=== PATIENT | male | born 1955 | race Caucasian/White ===

== ENCOUNTER → 2016-08-11 | Outpatient (CLI) | payer MEDICARE ==
--- NOTE | 2016-08-11 12:04 | FL ---
MODIFIED SWALLOW / DEGLUTITION STUDY DATE OF EXAM: 08/11/2016 11:32 AM CLINICAL HISTORY: 60-year-old male Dysphagia. Sensation of food getting caught in a pocket in his thr oat. TECHNIQUE: Deglutition study is performed utilizing thin liquid barium, honey and nectar thick liqui d barium, barium thick applesauce, and barium coated cracker. COMPARISON: None. FINDINGS: The oral and pharyngeal phases show satisfactory initiation and propagation with all modalities teste d. Normal mastication is seen with solid modalities tested. There is no evidence of penetration or aspiration with any modality tested. There is a single episode of vallecular residuals with solid con sistencies. This spontaneously cleared with repeat swallow. IMPRESSION: No evidence for penetration or aspiration. Single episode of vallecular residual with solid consisten cies. Please refer to speech therapist notes for further details if necessary.
== END | disposition home or self-care (01) ==
LOC: RADFLMAIN 11:00
PROVIDERS: ATTEND Otolaryngology
DX: R13.10 Dysphagia, unspecified (principal)
CPT/HCPCS: 74230

== ENCOUNTER → 2016-12-19 | Outpatient (CLI) | payer MEDICARE ==
--- NOTE | 2016-12-19 15:08 | XR ---
EXAMINATION TYPE: XR chest 2V DATE OF EXAM: 12/19/2016 3:04 PM COMPARISON: 09/08/2013 TECHNIQUE: PA and lateral views submitted. HISTORY: Physical exam FINDINGS: The lungs are clear and there is no pneumothorax, pleural effusion, or focal pneumonia. Large hiata l hernia noted. Mild hyperinflation. Hypertrophic change of the spine. IMPRESSION: 1. No acute process. Correlate for COPD. 2. Hiatal hernia
== END | disposition home or self-care (01) ==
LOC: RADXRMAIN 14:44
PROVIDERS: ATTEND Family Medicine
DX: Z00.01 Encounter for general adult medical examination with abnormal findings (principal); K44.9 Diaphragmatic hernia without obstruction or gangrene
CPT/HCPCS: 71020

== ENCOUNTER → 2017-06-05 | Outpatient (CLI) | payer MEDICARE ==
--- NOTE | 2017-06-05 15:53 | NM ---
EXAMINATION TYPE: NM hepatobiliary w EF DATE OF EXAM: 06/05/2017 COMPARISON: NONE HISTORY: Gastroesophageal reflux disease, abdominal pain TECHNIQUE: After the intravenous administration of 5.2 mCi Tc 99m Mebrofenin hepatobiliary scintigrap hy is performed. Immediate images post injection. FINDINGS: There is satisfactory initial accumulation of tracer by the liver. The gallbladder is visualized wit hin 4 minutes. The small bowel activity is noted within 8 minutes. At one hour 8 ounces of oral ens ure plus is given to mimic CCK and gallbladder ejection fraction is calculated at 96 %, possibly in t he hyperdynamic range. Therefore there is no scintigraphic evidence of cystic or common bile duct ob struction to suggest acute cholecystitis. IMPRESSION: Gallbladder ejection fraction of 96%, may be hyperdynamic
== END ==
LOC: RADNMMAIN 13:21
PROVIDERS: ATTEND Family Medicine
DX: K21.9 Gastro-esophageal reflux disease without esophagitis (principal)
CPT/HCPCS: 78226; A9537

== ENCOUNTER → 2017-06-08 | Outpatient (CLI) | payer MEDICARE ==
--- NOTE | 2017-06-08 12:31 | ECHOF ---
Referral Reason:R07.89 Atypical chest pain MEASUREMENTS -------- HEIGHT: 177.8 cm WEIGHT: 136.1 kg BP: 208/97 RVIDd: 2.6 cm (< 3.3) IVSd: 1.0 cm (0.6 - 1.1) LVIDd: 4.6 cm (3.9 - 5.3) LVPWd: 1.2 cm (0.6 - 1.1) IVSs: 1.9 cm LVIDs: 3.1 cm LVPWs: 1.4 cm LAESV Index (A-L): 11.80 ml/m Ao Diam: 3.6 cm (2.0 - 3.7) AV Cusp: 2.1 cm (1.5 - 2.6) MV E Richy: 0.98 m/s MV DecT: 336 ms MV A Richy: 1.29 m/s MV E/A Ratio: 0.75 RAP: 5.00 mmHg RVSP: 10.74 mmHg FINDINGS -------- Sinus rhythm. This was a technically adequate study. The left ventricular size is normal. There is borderline concentric left ventricular hypertrophy. Overall left ventricular systolic function is normal with, an EF between 55 - 60 %. The right ventricle is normal in size and function. Normal LA size by volume 22+/-6 ml/m2. The right atrium is normal in size. Aortic valve is trileaflet and is mildly thickened. There is no evidence of aortic regurgitation. There is no evidence of aortic stenosis. Mild mitral annular calcification present. There is trace mitral regurgitation. Trace tricuspid regurgitation present. Right ventricular systolic pressure is normal at < 35 mmHg. There is no evidence of pulmonary hypertension. The pulmonic valve was not well visualized. The aortic root size is normal. IVC Not well visulized. The pericardium is normal. Echo free space represents a pericardial fat pad. There is no pericard ial effusion. CONCLUSIONS -------- 1. Sinus rhythm. 2. This was a technically adequate study. 3. The left ventricular size is normal. 4. There is borderline concentric left ventricular hypertrophy. 5. Overall left ventricular systolic function is normal with, an EF between 55 - 60 %. 6. Normal LA size by volume 22+/-6 ml/m2. 7. Aortic valve is trileaflet and is mildly thickened. 8. Mild mitral annular calcification present. 9. There is trace mitral regurgitation. 10. Trace tricuspid regurgitation present. 11. Right ventricular systolic pressure is normal at < 35 mmHg. 12. There is no evidence of pulmonary hypertension. 13. The pulmonic valve was not well visualized. 14. The aortic root size is normal. 15. IVC Not well visulized. 16. There is no pericardial effusion. IT SOFTWARE ENGINEER: Pedro Graff RDCS
--- NOTE | 2017-06-08 15:22 | EST ---
EXERCISE STRESS AGE: 61 SEX: M HT: 72" WT: 300 PROTOCOL: Devonte STAGE: 2 DURATION OF EXERCISE: 3:30 HEART RATE REST: 94 BLOOD PRESSURE REST: 151/79 MAXIMUM HEART RATE ACHIEVED: 140 MAXIMUM BLOOD PRESSURE: 179/81 85% MPHR: 137 100% MPHR: 161 METS: 5.2 INDICATIONS: Chest pain. CLINICAL INFORMATION: Baseline EKG revealed normal sinus rhythm with a nondiagnostic inferior Q-wave in lead 3. Patient walked on a standard Devonte protocol for 3.5 minutes, achieved a maximum heart rate of 140 beats per minute which is 85% of predicted maximal. He developed fatigue and shortness of breath. He did not have any clear-cut angina. His exercise capacity is quite limited. There were no EKG changes to indicate ischemia and there was no arrhythmia. By EKG criteria, this is a negative stress test with limited exercise capacity and no significant arrhythmia. BERNARDINO / CHEYANNEN: [id number] /
== END | disposition home or self-care (01) ==
LOC: RADNMMAIN 10:47
PROVIDERS: ATTEND Family Medicine
DX: I35.8 Other nonrheumatic aortic valve disorders (principal); I05.9 Rheumatic mitral valve disease, unspecified
CPT/HCPCS: 93017; 93306

== ENCOUNTER 2018-08-26 17:47 | Inpatient (IN) | payer MEDICARE ==
[2018-08-26] MEDS ORDERED: ASPIRIN 81 MG PO STA (17:55)
[2018-08-26] MEDS ORDERED: HEPARIN SODIUM,PORCINE 5,000 UNIT/ML 1 ML VIAL IV STA (17:55)
[2018-08-26] MEDS ORDERED: SODIUM CHLORIDE 0.9% 1,000 ML IV STA (17:55)
--- NOTE | 2018-08-26 17:59 | ED ---
General Adult HPI - General Stated complaint: Chest pain Time Seen by Provider: 08/26/18 17:59 - Related Data Home Medications Medication Instructions Recorded Confirmed Omeprazole [PriLOSEC] 20 mg PO AC-BRKFST 12/06/13 08/26/18 oxyCODONE HCL/ACETAMINOPHEN 1 tab PO BID PRN 12/06/13 08/26/18 [Percocet 10-325 mg] Losartan/Hydrochlorothiazide 1 tab PO QAM PRN 01/22/14 08/26/18 [Losartan-Hctz 100-12.5 mg Tab] Gabapentin [Neurontin] 600 - 1,200 mg PO BID 06/29/16 08/26/18 Glimepiride [Amaryl] 2 mg PO BID 06/26/17 08/26/18 ALPRAZolam [Xanax] 1 mg PO HS PRN 08/26/18 08/26/18 oxyCODONE HCL 40 mg PO BID 08/26/18 08/26/18 tiZANidine [Zanaflex] 2 - 4 mg PO BID PRN 08/26/18 08/26/18 Allergies Allergy/AdvReac Type Severity Reaction Status Date / Time morphine AdvReac Severe Confusion Verified 08/26/18 18:03 Review of Systems ROS Statement: Those systems with pertinent positive or pertinent negative responses have been documented in the HPI. ROS Other: All systems not noted in ROS Statement are negative. Past Medical History Past Medical History: Diabetes Mellitus, GERD/Reflux Additional Past Medical History / Comment(s): back pain, cervical degenerative disc disease, neuropathy, seizure post back sugery, spondylosis, post laminectomy syndrome, bilateral numbness and tingling of arms and legs History of Any Multi-Drug Resistant Organisms: None Reported Past Surgical History: Back Surgery Additional Past Surgical History / Comment(s): back surgery X4 of lumbar spine, laminectomy and fusion, sleep apnea sx, right ulnar repair. Past Anesthesia/Blood Transfusion Reactions: Postoperative Nausea & Vomiting ( PONV) Smoking Status: Former smoker - Past Family History Mother Family Medical History: No Reported History Father Family Medical History: Cancer Additional Family Medical History / Comment(s): prostate. Medical Decision Making - Medical Decision Making Dictation was produced using [employer] dictation software. please excuse any grammatical, word or spelling errors. Chief Complaint: 62-year-old male presents with chief complaint of chest pain. History of Present Illness: Patient is a 62-year-old male with past medical history of chronic back pain. States he was cleaning the septic tank when he began experiencing crushing chest pressure. Patient called EMS and he was brought immediately to the emergency department. EMS obtained EKG showing inferior OH. He was given nitroglycerin from EMS. Patient states his symptoms are associated with diaphoresis. He does have radiation of symptoms to his left upper extremity. Patient denies any history of heart attack. Denies any antiplatelet medications. The ROS documented in this emergency department record has been reviewed and confirmed by me. Those systems with pertinent positive or negative responses have been documented in the HPI. All other systems are other negative and/or noncontributory. PHYSICAL EXAM: General Impression: Alert and oriented x3, acute distress secondary to pain, pallor, diaphoretic HEENT: Normocephalic atraumatic, extra-ocular movements intact, pupils equal and reactive to light bilaterally, mucous membranes moist. Cardiovascular: Heart regular rate and rhythm, S1&S2 audible, no murmurs, rubs or gallops Chest: Lungs clear to auscultation bilaterally, no rhonchi, no wheeze, no rales Abdomen: Bowel sounds present, abdomen soft, non-tender, non-distended, no organomegaly Musculoskeletal: Pulses present and equal in all extremities, no peripheral edema Motor: Power 5/5 bilaterally, no focal deficits noted Neurological: CN II-XII grossly intact, no focal motor or sensory deficits noted Skin: Intact with no visualized rashes Psych: Normal affect and mood ED course: 62-year-old male presents with clinical presentation associated with acute OH. Patient is then given nitroglycerin from prehospital providers. Vital signs upon arrival shows borderline low blood pressure. He did receive nitroglycerin. Given the setting of ear wall OH this is likely business representative of right-sided OH.. Code STEMI was paged. Discussed patient case with aeronautical products sales engineer. Patient had received aspirin from EMS. More IVs were obtained patient given intravenous fluids. EKG interpretation: Ventricular rate 60, sinus rhythm, TX interval 242, QRS 104 , QTC 479. No TX prolongation, no QTC prolongation, acute STEMI. There is ST elevations in the inferior leads with Q waves. There is reciprocal changes in high lateral leads. Disposition Clinical Impression: ST elevation myocardial infarction (STEMI) Disposition: ADMITTED IP TO THIS HOSP Condition: Critical Decision Time: 18:13
[2018-08-26] MEDS ORDERED: HEPARIN SOD,PORK IN 0.45% NACL 25,000 UNIT in 0.45% NACL 1 250ML.BAG IV SCH (18:00)
[2018-08-26] MEDS ORDERED: NALOXONE 0.4 MG/ML 1 ML VIAL IV PRN (18:13)
[2018-08-26 18:16] LABS: Basophils # (A) 0.1 k/uL (0-0.2); Basophils % (A) 0 %; Eosinophils # (A) 0.2 k/uL (0-0.7); Eosinophils % (A) 1 %; HCT 46.3 % (39.0-53.0); HGB 15.3 gm/dL (13.0-17.5); Lymphocytes # (A) 3.5 k/uL (1.0-4.8); Lymphocytes % (A) 21 %; MCH 29.8 pg (25.0-35.0); MCHC 33.1 g/dL (31.0-37.0); Mean Platelet Volume 6.8; Monocytes # (A) 1.1 k/uL (0-1.0); Monocytes % (A) 7 %; Neutrophils # (A) 11.7 k/uL (1.3-7.7); Neutrophils % (A) 69 %; Platelet Count 344 k/uL (150-450); RBC 5.15 m/uL (4.30-5.90); RDW 13.5 % (11.5-15.5); WBC 16.8 k/uL (3.8-10.6)
--- NOTE | 2018-08-26 18:16 | XR ---
EXAMINATION TYPE: XR chest 1V portable DATE OF EXAM: 08/26/2018 COMPARISON: 12/19/2016 HISTORY: Chest pain TECHNIQUE: Single frontal view of the chest is obtained. FINDINGS: Heart and mediastinum are normal. Lungs are clear. Diaphragm is normal. There is moderate size hiatal hernia. There is no pleural effusion. IMPRESSION: Hiatal hernia. No active cardiopulmonary disease. No change. No heart failure.
[2018-08-26] MEDS ORDERED: TICAGRELOR 90 MG TAB PO STA (18:20)
[2018-08-26 18:24] LABS: ALT 44 U/L (21-72); AST 33 U/L (17-59); Albumin 3.9 g/dL (3.5-5.0); Alkaline Phosphatase 128 U/L (38-126); Anion Gap 9 mmol/L; Blood Urea Nitrogen 26 mg/dL (9-20); Calcium 9.3 mg/dL (8.4-10.2); Carbon Dioxide 22 mmol/L (22-30); Chloride 103 mmol/L (98-107); Glucose 178 mg/dL (74-99); INR 1.1 (<1.2); Partial Thromboplastin Time 22.8 sec (22.0-30.0); Potassium 4.6 mmol/L (3.5-5.1); Prothrombin Time 11.2 sec (9.0-12.0); Sodium 134 mmol/L (137-145); Total Bilirubin 0.8 mg/dL (0.2-1.3); Total Protein 7.5 g/dL (6.3-8.2)
[2018-08-26 18:28] LABS: Creatine Kinase 364 U/L (55-170)
[2018-08-26] MEDS ORDERED: IV FLUID CONTINUATION 400 ML IV ONE (18:40)
[2018-08-26 18:41] LABS: Creatine Kinase MB 2.3 ng/mL (0.0-2.4); Troponin I <0.012 ng/mL (0.000-0.034)
--- NOTE | 2018-08-26 18:44 | CONS ---
CONSULTATION Mr. Short is a 62-year-old gentleman who came to the emergency room with a complaint of chest discomfort. This patient was trying to dig down and remove a septic tank, working outside in the cold freezing weather, and subsequently he started developing chest discomfort. The pain was in the substernal area associated with some nausea. EKG was suggestive of acute inferior wall myocardial infarction. Patient received nitroglycerin by EMS and subsequently developed hypotension, responded to fluids. The patient has a history of diabetes. There is no history of hypertension. He does not take any medications for cholesterol. He has a past history of smoking, but he has not been smoking for several years. He is physically and functionally independent. PAST MEDICAL HISTORY: 1. History of some surgery in the left leg. 2. History of hiatal hernia. No history of any recent GI bleeding or bleeding. No history of a stroke. REVIEW OF SYSTEMS: Otherwise unremarkable. PHYSICAL EXAMINATION: Physical examination reveals a 62-year-old obesely built gentleman who at present is having mild discomfort. Blood pressure is 102/60 mmHg. Head/ENT examination is negative. Neck is supple. There is no increase in jugular venous pressure. Both the carotid pulses are felt. There is no bruit. Chest is symmetrical. HEART: The PMI is not felt. First and second heart sounds are heard. Lungs are clinically clear to auscultation and percussion. Abdomen is negative. EXTREMITIES: Peripheral pulsations are 2+. EKG is suggestive of acute inferior wall myocardial infarction. FINAL IMPRESSION: 1. Acute inferior wall myocardial infarction. 2. History of diabetes. Lab tests are not available at present. RECOMMENDATIONS: Will proceed with immediate cardiac catheterization and primary angioplasty. The procedure and risks were fully discussed with the patient and the family members. MMODL / IJN: [id number] /
[2018-08-26] MEDS ORDERED: fentaNYL (PF) 50 MCG/ML 2 ML AMP ONE (18:45)
[2018-08-26] MEDS ORDERED: LIDOCAINE 1% INJ 10MG/ML (20 ML MDV) SQ ONE ×2 (18:46→18:48)
[2018-08-26] MEDS ORDERED: fentaNYL (PF) 50 MCG/ML 2 ML AMP IV ONE (18:49)
[2018-08-26] MEDS ORDERED: MIDAZOLAM 2 MG/2 ML VIAL IV ONE (18:49)
[2018-08-26] MEDS ORDERED: SODIUM CHLORIDE 0.9% 1,000 ML IV ONE (19:00)
[2018-08-26] MEDS ORDERED: BIVALIRUDIN BOLUS 250 MG/50 ML IV ONE (19:07)
[2018-08-26] MEDS ORDERED: BIVALIRUDIN 250 MG in SODIUM CHLORIDE 0.9% 40 ML IV ONE (19:09)
[2018-08-26] MEDS ORDERED: ONDANSETRON 4 MG/2 ML VIAL ONE (19:16)
[2018-08-26] MEDS: ONDANSETRON 4 MG/2 ML VIAL IVP ONE ×2 (19:21→19:44)
[2018-08-26] MEDS ORDERED: niCARdipine 25 MG/10 ML VIAL ONE (19:24)
[2018-08-26] MEDS ORDERED: niCARdipine Syringe (1,000 mcg/10 mL) INTRACORON ONE (19:26)
[2018-08-26] MEDS ORDERED: DOPamine DRIP 800 MG in DEXTROSE/WATER 1 500ML.BAG IV ONE (19:30)
[2018-08-26] MEDS ORDERED: NOREPINEPHRINE 16 MG in SODIUM CHLORIDE 0.9% 250 ML IV ONE (19:35)
[2018-08-26] MEDS ORDERED: IOPAMIDOL-370 125ML BTL INJ ONE (19:58)
[2018-08-26] MEDS ORDERED: IOPAMIDOL-370 100ML BTL INJ ONE (20:00)
[2018-08-26] MEDS ORDERED: NITROGLYCERIN SL TABS 0.4 MG TAB SUBLINGUAL PRN (20:13)
[2018-08-26] MEDS ORDERED: RX INFO: IV CONTRAST WAS GIVEN 1 EACH MISC MISCELLANE PRN (20:13)
[2018-08-26] MEDS ORDERED: MAG HYDROX/AL HYDROX/SIMETH 30 ML CUP PO PRN (20:13)
[2018-08-26] MEDS ORDERED: ATROPINE SULFATE 0.1 MG/ML 10ML SYRINGE IV PRN (20:13)
[2018-08-26] MEDS ORDERED: NOREPINEPHRINE 4 MG in SODIUM CHLORIDE 0.9% 250 ML IV SCH (20:30)
[2018-08-26] MEDS ORDERED: DOPamine DRIP 800 MG in DEXTROSE/WATER 1 500ML.BAG IV SCH (20:30)
--- NOTE | 2018-08-26 20:37 | CC ---
CARDIAC CATHETERIZATION REPORT Mr. Short is a 62-year-old gentleman who came to the emergency room with acute inferior wall myocardial infarction. Patient has a history of diabetes. In view of that, the patient was recommended to have a cardiac catheterization for primary angioplasty. PROCEDURE: The right groin was prepped and draped in the usual manner and the skin was infiltrated with 2% Xylocaine. The right femoral artery was entered using Seldinger technique. A #6- Vietnamese sheath was placed in. Selective coronary angiography was then performed in multiple projections. The patient tolerated the procedure well. The Shannan catheter was used to engage the right coronary artery. Left main coronary artery is normal. LAD is a good-caliber blood vessel. Mid LAD has a mild irregularity with about 30% stenosis. Circumflex coronary artery also has a mild irregularity. It gives rise to a good-sized obtuse marginal branch. Circumflex coronary artery and its branches are otherwise normal. Right coronary artery is a good-caliber blood vessel and is totally occluded in its mid portion. 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 There is a mild irregularity in the LAD and the circumflex coronary artery. Films were reviewed with Dr. Luis Chaparro and we will proceed with a stent to the RCA. MMODL / IJN: [id number] /
[2018-08-26 20:50] LABS: Glucose,Whole Blood 145 mg/dL (75-99)
--- NOTE | 2018-08-26 20:50 | PTCA ---
PERCUTANEOUSTRANS CORORONARY ANGIOGRAPHY DATE OF SERVICE: 08/26/2018 PROCEDURE: Percutaneous transluminal coronary angioplasty and stenting of a totally occluded right coronary artery performed in the setting of an acute inferior ST-elevation myocardial infarction with re-perfusion achieved in 83 minutes. PERFORMED BY: Dr. Nithya Chaparro. Moderate conscious sedation time was 36 minutes. Patient was administered Versed, and his oxygen saturation, hemodynamics and EKG were monitored closely. CLINICAL INFORMATION: Mr. Marvin Short is a 62-year-old gentleman with a history of type 2 diabetes and hypertension who quit smoking several years ago, came into the hospital with a clinical presentation of acute inferior VA and was evaluated by Dr. Juan Carlos Zapata, who performed a cardiac cath which revealed a total occlusion of the RCA, which was a dominant vessel, in its mid portion. He had non-critical disease in the left system. The LAD had a moderate disease in the mid portion. He had pretty much a right-dominant system with, however, a large circumflex as well. There were no critical lesions in the left system. He was advised intervention of the RCA that was performed expeditiously. RCA had somewhat of a posterior takeoff. PROCEDURE NOTE: The existing 6-Greenlandic introducer in the right femoral artery was used to perform the procedure. I used a Shannan 6-Greenlandic guide catheter to cannulate the RCA. A run-through wire was used to cross the lesion. A 2.5 caliber 12 mm Trek balloon was used to dilate the lesion. There was partial improvement in flow. However, there was a substantial amount of thrombus burden. Multiple inflations were then given with a 3.0 caliber 15 mm balloon, and eventually I used a 3.25 caliber 23 mm Xience stent and deployed this stent with the distal end of the stent located right at the bifurcation. Excellent angiographic result was achieved. I also gave 100 mcg of nicardipine. The patient had an excellent DENIA-3 flow with resolution of chest pain, but he had severe nausea and diaphoresis and became hypotensive, requiring IV fluids, Levophed and dopamine. He was stabilized very well, with resolution of chest pain and near-normalization of EKG and he was on 3 mcg of Levophed and dopamine. He was going to go to the ICU as soon as a bed was available. The distal PLV branch was subtotally occluded. It was a small branch and this caused some transient bradycardia. However, the patient was hemodynamically stable at the conclusion of the procedure with a DENIA-3 flow and near- normalization of EKG. There was a lot of thrombus burden. He received Angiomax bolus and infusion. He also received 180 mg of Brilinta. The sheath was sutured and he was sent to the ICU on 3 mcg of Levophed and dopamine. Patient had complete resolution of chest pain. Results were discussed with the patient and his . His sheath will be pulled tomorrow and he will be watched closely. MMODL / IJN: [id number] /
[2018-08-26] MEDS: SODIUM CHLORIDE 0.9% 1,000 ML IV SCH (21:03)
[2018-08-26] MEDS: ATORVASTATIN 80 MG TAB PO SCH (21:34)
[2018-08-26] MEDS: ONDANSETRON 4 MG/2 ML VIAL IVP PRN (22:02)
[2018-08-26] MEDS ORDERED: LOSARTAN 50 MG TAB PO PRN (23:03)
[2018-08-26] MEDS ORDERED: tiZANidine 4 MG TAB PO PRN (23:03)
[2018-08-26] MEDS ORDERED: HYDROCHLOROTHIAZIDE 12.5 MG CAP PO PRN (23:31)
[2018-08-27] MEDS ORDERED: PROCHLORPERAZINE 10 MG TAB PO ONE (01:15)
[2018-08-27 02:01] LABS: Glucose,Whole Blood 214 mg/dL (75-99)
[2018-08-27] MEDS: INSULIN ASPART 100 UNIT/ML 1 ML 10 ML VIAL SQ SCH ×5 (02:05→20:35)
[2018-08-27] MEDS: ONDANSETRON 4 MG/2 ML VIAL IVP PRN ×2 (04:02→09:30)
[2018-08-27 04:48] LABS: Basophils % (A) 0 %; Eosinophils # (A) 0.1 k/uL (0-0.7); Eosinophils % (A) 0 %; HCT 41.5 % (39.0-53.0); HGB 13.8 gm/dL (13.0-17.5); Lymphocytes # (A) 1.3 k/uL (1.0-4.8); Lymphocytes % (A) 10 %; MCH 30.1 pg (25.0-35.0); MCHC 33.2 g/dL (31.0-37.0); MCV 90.7 fL (80.0-100.0); Mean Platelet Volume 6.6; Monocytes # (A) 0.8 k/uL (0-1.0); Monocytes % (A) 7 %; Neutrophils # (A) 10.5 k/uL (1.3-7.7); Neutrophils % (A) 82 %; Platelet Count 307 k/uL (150-450); RBC 4.58 m/uL (4.30-5.90); RDW 13.5 % (11.5-15.5); WBC 12.8 k/uL (3.8-10.6)
[2018-08-27 05:00] LABS: Anion Gap 8 mmol/L; Blood Urea Nitrogen 23 mg/dL (9-20); Calcium 8.8 mg/dL (8.4-10.2); Carbon Dioxide 24 mmol/L (22-30); Chloride 103 mmol/L (98-107); Glucose 222 mg/dL (74-99); Potassium 4.4 mmol/L (3.5-5.1); Sodium 135 mmol/L (137-145)
[2018-08-27 06:41] LABS: Glucose,Whole Blood 186 mg/dL (75-99)
[2018-08-27] MEDS: PANTOPRAZOLE 40 MG TABLET PO SCH (06:54)
[2018-08-27] MEDS: SODIUM CHLORIDE 0.9% 1,000 ML IV SCH (06:54)
--- NOTE | 2018-08-27 07:22 | P.PN ---
Subjective Progress Note Date: 08/27/18 Principal diagnosis: Acute inferior ST patient in my This is a pleasant 62-year-old gentleman with a past medical history significant for diabetes, hypertension, and prior history of smoking, who presented to the emergency room with chest discomfort and was diagnosed with acute inferior ST patient myocardial infarction be he underwent an emergent heart catheterization and was found to have totally occluded RCA in the midportion. He underwent successful stenting of the RCA. On follow-up with him today, August 272018, the patient seems to be asymptomatic from a cardiac vascular standpoint overview. He is on dopamine which I am going to wean him off. The right groin have some stop on its. The sheath was pulled earlier today. He continues to be on dual antiplatelet therapy along with high intensity statin. We'll follow-up with the echocardiogram. The patient can be transferred out of the unit. Objective - Vital Signs Vital signs: Vital Signs Temp 97.6 F 08/27/18 04:00 Pulse 86 08/27/18 05:00 Resp 22 08/27/18 05:00 BP 111/56 08/27/18 05:00 Pulse Ox 94 L 08/27/18 05:00 Intake & Output 08/26/18 08/27/18 08/27/18 18:59 06:59 18:59 Intake Total 400 2116.580 Output Total 2435 Balance 400 -318.420 Weight 133.81 kg Intake: IV 400 210 Intake, IV Titration 1806.580 Amount DOPamine DRIP 800 mg In 313.840 Dextrose/Water 1 500ml. bag @ 3 MCG/KG/MIN 15.05 mls/hr IV .Q24H [facility]I Rx#: [id number] Norepinephrine 4 mg In 117.740 Sodium Chloride 0.9% 250 ml @ 3 MCG/MIN 11.25 mls/ hr IV .[id number] [facility]I Rx#: [id number] Sodium Chloride 0.9% 1, 1375 000 ml @ 125 mls/hr IV . Q8H [facility]I Rx#:[id number] Oral 100 Output: Urine 2435 Other: Voiding Method Indwelling Catheter ABP, PAP, CO, CI - Last Documented Arterial Blood Pressure 105/52 - Constitutional General appearance: Present: no acute distress - Respiratory Respiratory: bilateral: CTA - Cardiovascular Rhythm: regular Heart sounds: normal: S1, S2 - Labs CBC & Chem 7: 08/27/18 04:35 08/27/18 04:35 Labs: Abnormal Lab Results - Last 24 Hours (Table) 08/26/18 08/26/18 08/26/18 Range/Units 18:11 18:11 18:11 WBC 16.8 H (3.8-10.6) k/uL Neutrophils # 11.7 H (1.3-7.7) k/uL Monocytes # 1.1 H (0-1.0) k/uL Sodium 134 L (137-145) mmol/L BUN 26 H (9-20) mg/dL Glucose 178 H (74-99) mg/dL POC Glucose (mg/dL) (75-99) mg/dL Alkaline Phosphatase 128 H (38-126) U/L Total Creatine Kinase 364 H (55-170) U/L Troponin I (0.000-0.034) ng/mL 08/26/18 08/27/18 08/27/18 Range/Units 20:48 00:07 01:59 WBC (3.8-10.6) k/uL Neutrophils # (1.3-7.7) k/uL Monocytes # (0-1.0) k/uL Sodium (137-145) mmol/L BUN (9-20) mg/dL Glucose (74-99) mg/dL POC Glucose (mg/dL) 145 H 214 H (75-99) mg/dL Alkaline Phosphatase (38-126) U/L Total Creatine Kinase (55-170) U/L Troponin I 9.790 H* (0.000-0.034) ng/mL 08/27/18 08/27/18 08/27/18 Range/Units 04:35 04:35 04:35 WBC 12.8 H (3.8-10.6) k/uL Neutrophils # 10.5 H (1.3-7.7) k/uL Monocytes # (0-1.0) k/uL Sodium 135 L (137-145) mmol/L BUN 23 H (9-20) mg/dL Glucose 222 H (74-99) mg/dL POC Glucose (mg/dL) (75-99) mg/dL Alkaline Phosphatase (38-126) U/L Total Creatine Kinase (55-170) U/L Troponin I 21.800 H* (0.000-0.034) ng/mL 08/27/18 Range/Units 06:39 WBC (3.8-10.6) k/uL Neutrophils # (1.3-7.7) k/uL Monocytes # (0-1.0) k/uL Sodium (137-145) mmol/L BUN (9-20) mg/dL Glucose (74-99) mg/dL POC Glucose (mg/dL) 186 H (75-99) mg/dL Alkaline Phosphatase (38-126) U/L Total Creatine Kinase (55-170) U/L Troponin I (0.000-0.034) ng/mL Assessment and Plan Assessment: Assessment #[address] patient myocardial infarction and status post PCI of the RCA #2 diabetes type 2 #3 hypertension #4 history of smoking Plan #1 continue dual antiplatelet therapy along with high intensity statin #2 right wean the patient from dopamine #3 follow-up on the echocardiogram #4 the patient can be transferred out of the ICU
[2018-08-27] MEDS ORDERED: GABAPENTIN 300 MG CAP PO SCH (09:00)
[2018-08-27 09:28] LABS: Glucose,Whole Blood 131 mg/dL (75-99)
--- NOTE | 2018-08-27 10:25 | P.HPIM ---
History of Present Illness H&P Date: 08/27/18 Chief Complaint: Acute myocardial infarction, post PCI and stent placement of the RCA, destinye 62 year-old morbidly obese male one of Dr. Godoy patient with chronic history of diabetes obstructive sleep apnea hypertension and hyperlipidemia who has been doing well never had any cardiac history according to him. Patient started having problem with a septic tank asking for help with his family try to do repair on his own developed to have significant tightness pressure and shortness of breath on Sunday his symptoms become much worse on Sunday he developed to have significant midsternal chest pain radiating toward the left upper side of his chest wall associated with nausea and worsening dyspnea and shortness of breath. With the cold sweat and his current symptoms family decided to drive him to the emergency room a become very skier close to fire department end up pulling out and asked if I department for help patient was [facility] from by the fire department where was seen and evaluated CK with troponin came back elevated patient had an ST OR on EKG. Cardiology were called and patient was taken to the phlebotomist lab assistant with Dr. Zapata had a heart catheter showed total occlusion of the right coronary artery and small stenosis in the LAD and circumflex. Dr. WILBERT cochran ended up performing PCI with stent placement of the RCA successfully patient was admitted to the intensive care unit after procedure. Patient is resting comfortably at this point doing well Review of Systems CONSTITUTIONAL: Well-developed no acute respiratory distress. EYES: No icterus sclerae, no conjunctivitis. EARS, NOSE, MOUTH, THROAT, and FACE: No sore throat, lymphadenopathy, carotid bruits or deformity. RESPIRATORY: Positive shortness of breath and dyspnea CARDIOVASCULAR: Positive chest pain or angina and palpitation GASTROINTESTINAL: No Abd pain, Nausea or vomiting, no Diarrhea or constipation, No GI Bleed, no distention or masses. GENITOURINARY: Negative for Hematuria or UTI, no kidney stones. INTEGUMENT/BREAST: Negative for any muscular injury with mild osteoarthritis.. HEMATOLOGIC/LYMPHATIC: Negative for bleed or purpura. MUSCULOSKELTAL: Negative for Myalgia or arthralgia. NEURLOGICAL: No LOC, Sz or syncope, blurred vision dizziness or abnormality.. BEHAVIORAL/PSYCH: Negative. ENDOCRINE: Negative. Past Medical History Past Medical History: Diabetes Mellitus, GERD/Reflux, Myocardial Infarction (OR) Additional Past Medical History / Comment(s): back pain, cervical degenerative disc disease, neuropathy, seizure post back sugery, spondylosis, post laminectomy syndrome, bilateral numbness and tingling of arms and legs Last Myocardial Infarction Date:: 08/26/18 History of Any Multi-Drug Resistant Organisms: None Reported Past Surgical History: Back Surgery Additional Past Surgical History / Comment(s): back surgery X4 of lumbar spine, laminectomy and fusion, sleep apnea sx, right ulnar repair. Past Anesthesia/Blood Transfusion Reactions: Postoperative Nausea & Vomiting ( PONV) Past Psychological History: No Psychological Hx Reported Smoking Status: Former smoker Past Alcohol Use History: None Reported Additional Past Alcohol Use History / Comment(s): quit smoking ,smoked approc 17 yrs 2ppd Past Drug Use History: None Reported Additional Drug Use History / Comment(s): rarely drinks alcohol, social - Past Family History Mother Family Medical History: No Reported History Father Family Medical History: Cancer Additional Family Medical History / Comment(s): prostate. Medications and Allergies Home Medications Medication Instructions Recorded Confirmed Type Omeprazole [PriLOSEC] 20 mg PO AC-BRKFST 12/06/13 08/26/18 History oxyCODONE HCL/ACETAMINOPHEN 1 tab PO BID PRN 12/06/13 08/26/18 History [Percocet 10-325 mg] Losartan/Hydrochlorothiazide 1 tab PO QAM PRN 01/22/14 08/26/18 History [Losartan-Hctz 100-12.5 mg Tab] Gabapentin [Neurontin] 600 - 1,200 mg PO BID 06/29/16 08/26/18 History Glimepiride [Amaryl] 2 mg PO BID 06/26/17 08/26/18 History ALPRAZolam [Xanax] 1 mg PO HS PRN 08/26/18 08/26/18 History oxyCODONE HCL 40 mg PO BID 08/26/18 08/26/18 History tiZANidine [Zanaflex] 2 - 4 mg PO BID PRN 08/26/18 08/26/18 History Allergies Allergy/AdvReac Type Severity Reaction Status Date / Time morphine AdvReac Severe Confusion Verified 08/26/18 18:03 Physical Exam Vitals: Vital Signs Temp Pulse Pulse Resp BP BP BP 08/27/18 08:00 82 11 L 118/66 08/27/18 07:45 85 15 116/67 08/27/18 07:30 86 12 101/53 08/27/18 07:15 84 20 120/57 08/27/18 07:00 80 14 115/59 08/27/18 06:45 84 11 L 110/46 08/27/18 06:30 80 12 131/51 08/27/18 06:25 80 18 131/51 08/27/18 05:00 86 22 111/56 08/27/18 04:45 82 21 104/54 08/27/18 04:30 86 22 103/52 08/27/18 04:15 85 11 L 105/53 08/27/18 04:00 97.6 F 84 14 117/60 08/27/18 03:30 82 13 116/58 08/27/18 03:15 81 20 110/55 08/27/18 03:00 79 20 08/27/18 02:45 79 10 L 08/27/18 02:30 80 13 08/27/18 02:15 83 22 109/53 08/27/18 02:00 80 13 108/51 08/27/18 01:45 79 13 98/46 114/54 08/27/18 01:15 80 13 107/48 08/27/18 01:00 83 12 104/44 08/27/18 00:45 84 20 114/56 08/27/18 00:30 82 16 102/49 08/27/18 00:10 79 13 99/56 08/27/18 00:00 97.6 F 79 14 111/63 08/26/18 23:45 75 17 109/53 08/26/18 23:25 81 13 95/59 08/26/18 23:05 81 17 111/53 08/26/18 22:55 80 16 111/52 08/26/18 22:40 76 14 96/49 08/26/18 22:25 97.5 F L 75 11 L 101/47 08/26/18 22:10 74 12 100/46 08/26/18 21:55 71 13 107/50 08/26/18 21:40 71 12 119/43 08/26/18 21:25 63 12 113/52 08/26/18 21:20 75 21 118/58 08/26/18 21:15 74 12 118/53 08/26/18 21:10 66 12 95/74 08/26/18 21:05 71 12 112/62 08/26/18 21:00 66 11 L 100/61 08/26/18 20:55 97.0 F L 73 11 L 114/57 08/26/18 20:50 97.0 F L 78 17 109/58 08/26/18 18:20 81 14 103/74 08/26/18 18:13 81 16 97/64 08/26/18 18:00 81 20 101/74 Pulse Ox 08/27/18 08:00 97 08/27/18 07:45 97 08/27/18 07:30 98 08/27/18 07:15 96 08/27/18 07:00 96 08/27/18 06:45 96 08/27/18 06:30 96 08/27/18 06:25 96 08/27/18 05:00 94 L 08/27/18 04:45 95 08/27/18 04:30 94 L 08/27/18 04:15 95 08/27/18 04:00 96 08/27/18 03:30 95 08/27/18 03:15 95 08/27/18 03:00 96 08/27/18 02:45 96 08/27/18 02:30 97 08/27/18 02:15 95 08/27/18 02:00 95 08/27/18 01:45 95 08/27/18 01:15 97 08/27/18 01:00 97 08/27/18 00:45 96 08/27/18 00:30 95 08/27/18 00:10 96 08/27/18 00:00 97 08/26/18 23:45 99 08/26/18 23:25 96 08/26/18 23:05 96 08/26/18 22:55 95 08/26/18 22:40 92 L 08/26/18 22:25 92 L 08/26/18 22:10 92 L 08/26/18 21:55 95 08/26/18 21:40 94 L 08/26/18 21:25 95 08/26/18 21:20 96 08/26/18 21:15 93 L 08/26/18 21:10 95 08/26/18 21:05 93 L 08/26/18 21:00 96 08/26/18 20:55 94 L 08/26/18 20:50 94 L 08/26/18 18:20 97 08/26/18 18:13 96 08/26/18 18:00 93 L Intake and Output 08/26/18 08/27/18 08/27/18 22:59 06:59 14:59 Intake Total 1064.2 1452.380 128.507 Output Total 1100 1335 75 Balance -35.8 117.380 53.507 Intake: IV 610 Intake, IV Titration 454.2 1352.380 128.507 Amount DOPamine DRIP 800 mg In 45.3 268.540 3.507 Dextrose/Water 1 500ml. bag @ 3 MCG/KG/MIN 15.05 mls/hr IV .Q24H HARI Rx#: [id number] Norepinephrine 4 mg In 33.9 83.840 Sodium Chloride 0.9% 250 ml @ 3 MCG/MIN 11.25 mls/ hr IV .[id number] HARI Rx#: [id number] Sodium Chloride 0.9% 1, 375 1000 125 000 ml @ 125 mls/hr IV . Q8H [facility]I Rx#:[id number] Oral 100 Output: Urine 1100 1335 75 Other: Voiding Method Indwelling Catheter Weight 133.81 kg ABP, PAP, CO, CI - Last 8 Hours Arterial Blood Pressure 105/52 Arterial Blood Pressure 116/59 Arterial Blood Pressure 113/52 General Appearance: Alert, cooperative, no distress, appears stated age. Morbidly obese Neck HEENT: Supple, no lymphadenopathy, no thyroid enlargement, no carotid bruits. Lungs: Decreased breath sound bilaterally fine rhonchi Chest Wall: Chest wall normal expansion with deep inspiration no tenderness and no deformity was found on exam, no costochondral pain or discomfort. Heart: Regular rate and rhythm, S1, S2 normal, no murmur, rub or gallop. Back: Symmetric, no curvature, ROM normal, no CVA tenderness. Abdomen: Soft, non-tender, bowel sounds active all four quadrants, no masses, no organomegaly. Extremities: Extremities normal, atraumatic, no cyanosis or edema. Pressure in the right groin area from his heart catheter site the sheath of the catheter is out. Pulses: 2+ and symmetric. Skin: Skin color, texture, tugor normal, no rashes or lesions. Neurologic: Alert oriented x3 cranial nerves II through XII intact, no motor deficit, no abnormal balance or gait. Results CBC & Chem 7: 08/27/18 04:35 08/27/18 04:35 Labs: Abnormal Lab Results - Last 24 Hours (Table) 08/26/18 08/26/18 08/26/18 Range/Units 18:11 18:11 18:11 WBC 16.8 H (3.8-10.6) k/uL Neutrophils # 11.7 H (1.3-7.7) k/uL Monocytes # 1.1 H (0-1.0) k/uL Sodium 134 L (137-145) mmol/L BUN 26 H (9-20) mg/dL Glucose 178 H (74-99) mg/dL POC Glucose (mg/dL) (75-99) mg/dL Alkaline Phosphatase 128 H (38-126) U/L Total Creatine Kinase 364 H (55-170) U/L Troponin I (0.000-0.034) ng/mL 08/26/18 08/27/18 08/27/18 Range/Units 20:48 00:07 01:59 WBC (3.8-10.6) k/uL Neutrophils # (1.3-7.7) k/uL Monocytes # (0-1.0) k/uL Sodium (137-145) mmol/L BUN (9-20) mg/dL Glucose (74-99) mg/dL POC Glucose (mg/dL) 145 H 214 H (75-99) mg/dL Alkaline Phosphatase (38-126) U/L Total Creatine Kinase (55-170) U/L Troponin I 9.790 H* (0.000-0.034) ng/mL 08/27/18 08/27/18 08/27/18 Range/Units 04:35 04:35 04:35 WBC 12.8 H (3.8-10.6) k/uL Neutrophils # 10.5 H (1.3-7.7) k/uL Monocytes # (0-1.0) k/uL Sodium 135 L (137-145) mmol/L BUN 23 H (9-20) mg/dL Glucose 222 H (74-99) mg/dL POC Glucose (mg/dL) (75-99) mg/dL Alkaline Phosphatase (38-126) U/L Total Creatine Kinase (55-170) U/L Troponin I 21.800 H* (0.000-0.034) ng/mL 08/27/18 08/27/18 Range/Units 06:39 09:26 WBC (3.8-10.6) k/uL Neutrophils # (1.3-7.7) k/uL Monocytes # (0-1.0) k/uL Sodium (137-145) mmol/L BUN (9-20) mg/dL Glucose (74-99) mg/dL POC Glucose (mg/dL) 186 H 131 H (75-99) mg/dL Alkaline Phosphatase (38-126) U/L Total Creatine Kinase (55-170) U/L Troponin I (0.000-0.034) ng/mL Thrombosis Risk Factor Assmnt - DVT/VTE Prophylaxis DVT/VTE Prophylaxis: Pharmacologic Prophylaxis ordered, Mechanical Prophylaxis ordered - Choose All That Apply Any of the Below Risk Factors Present?: Yes Each Factor Represents 1 point: Acute OR, Age 41-60 years, Obesity (BMI >25), Swollen legs (current) Other Risk Factors: Yes Each Risk Factor Represents 2 Points: Patient confined to bed Other congenital or acquired thrombophilia - If yes, enter type in comment: No Thrombosis Risk Factor Assessment Total Risk Factor Score: 6 Thrombosis Risk Factor Assessment Level: High Risk Assessment and Plan Plan: 1 acute myocardial infarction [address] OR: Patient made it to the phlebotomist lab assistant had an angioplasty and stent placement with cardiology will continue secondary prevention with Nnamdi, beta jean, statin, antiplatelet agent and aspirin. 2 post PCI and stent placement: Stable and doing well. 3 type 2 diabetes: Patient has been on glyburide, continue oral hypoglycemic agent continue Accu-Chek with sliding scales coverage. 4 hypertension: Patient has been on losartan HCT continue medication and at smaller dose of beta jean. 5 hyperlipidemia: Patient was started on high dose of atorvastatin 80 mg daily. 6 chronic pain syndrome: Has been on oxycodone 40 mg twice a day along with Percocet 10 mg every 12 hours combined with gabapentin 1200 mg at bedtime and Zanaflex twice a day continue medication but lower the dose of oxycodone to 20 mg at this point is discharged from the hospital. 7 neuropathy with worsening symptoms: Patient will continue gabapentin for now. 8 severe GERD: Has been on omeprazole 20 mg a day continue medication. 9 History of obstructive sleep apnea: Post surgery patient is not using any CPAP at this point highly recommended to go back for testing and if needed to start using CPAP from now on. 10 DVT prophylaxis: Patient will have early mobilization and knee-high ELLY hose. CODE STATUS: Full code. Admit patient to inpatient status for more than 2 nights.
[2018-08-27] MEDS: TICAGRELOR 90 MG TAB PO SCH ×2 (10:40→20:53)
[2018-08-27] MEDS: ASPIRIN 81 MG PO SCH (10:40)
[2018-08-27] MEDS: GLIMEPIRIDE 2 MG TAB PO SCH ×2 (10:41→20:52)
[2018-08-27] MEDS: METOPROLOL TARTRATE 12.5 MG TAB PO SCH ×2 (10:44→20:53)
[2018-08-27 10:57] VITALS: BMI 42.3
[2018-08-27 11:50] LABS: Glucose,Whole Blood 114 mg/dL (75-99)
[2018-08-27 14:57] LABS: Hemoglobin A1C 7.4 % (4.0-6.0)
[2018-08-27 16:31] LABS: Glucose,Whole Blood 56 mg/dL (75-99)
[2018-08-27 16:52] LABS: Glucose,Whole Blood 105 mg/dL (75-99)
[2018-08-27 17:13] LABS: Glucose,Whole Blood 121 mg/dL (75-99)
--- NOTE | 2018-08-27 20:21 | ECHOF ---
Referral Reason:Acute IMI S/P RCA PCI MEASUREMENTS -------- HEIGHT: 157.5 cm WEIGHT: 133.8 kg BP: IVSd: 1.4 cm (0.6 - 1.1) LVIDd: 4.1 cm (3.9 - 5.3) LVPWd: 1.5 cm (0.6 - 1.1) IVSs: 1.6 cm LVIDs: 3.0 cm LVPWs: 1.6 cm Ao Diam: 3.2 cm (2.0 - 3.7) AV Cusp: 1.8 cm (1.5 - 2.6) EPSS: 1.5 cm MV E Richy: 0.50 m/s MV DecT: 251 ms MV A Richy: 0.79 m/s MV E/A Ratio: 0.63 MV EF SLOPE: 76.57 mm/s (70 - 150) MV EXCURSION: 23.95 mm (> 18.000) FINDINGS -------- Sinus rhythm. Morbid Obesity This was a techncally difficult study with suboptimal views, , Lumason utilized for enhancement of im ages. The left ventricular size is normal. There is moderate concentric left ventricular hypertrophy. O verall left ventricular systolic function is low-normal with, an EF between 50 - 55 %. The right ventricle is normal in size. The left atrial size is normal. The right atrial size is normal. 5.0mg OF Lumason UTLIZED: 2 OR MORE WALL SEGMENTS NOT VISUALIZED. The aortic valve was not well visualized. Mild mitral annular calcification present. Mild mitral regurgitation is present. Mild tricuspid regurgitation present. There is no evidence of pulmonary hypertension. Unable to e stimate RVSP due to inadequate TR jet spectral doppler profile. The pulmonic valve was not well visualized. The aortic root size is normal. Echo free space represents a pericardial fat pad. CONCLUSIONS -------- 1. Morbid Obesity 2. This was a techncally difficult study with suboptimal views, , Lumason utilized for enhancement of images. 3. The left ventricular size is normal. 4. There is moderate concentric left ventricular hypertrophy. 5. Overall left ventricular systolic function is low-normal with, an EF between 50 - 55 %. 6. The right ventricle is normal in size. 7. The left atrial size is normal. 8. The right atrial size is normal. 9. 5.0mg OF Lumason UTLIZED: 2 OR MORE WALL SEGMENTS NOT VISUALIZED. 10. The aortic valve was not well visualized. 11. Mild mitral annular calcification present. 12. Mild mitral regurgitation is present. 13. Mild tricuspid regurgitation present. 14. There is no evidence of pulmonary hypertension. 15. Unable to estimate RVSP due to inadequate TR jet spectral doppler profile. 16. The pulmonic valve was not well visualized. 17. The aortic root size is normal. 18. Echo free space represents a pericardial fat pad. SENIOR SHAREPOINT ARCHITECT: Rebekah Barrera RDCS
[2018-08-27 20:27] LABS: Glucose,Whole Blood 125 mg/dL (75-99)
[2018-08-27] MEDS: ATORVASTATIN 80 MG TAB PO SCH (20:53)
[2018-08-27] MEDS: GABAPENTIN 400 MG CAP PO SCH (20:53)
[2018-08-27] MEDS: AMITRIPTYLINE HCL 50 MG TAB PO SCH (22:37)
[2018-08-28] MEDS: ZOLPIDEM 5 MG TAB PO PRN ×2 (00:16→23:00)
[2018-08-28 02:52] LABS: Glucose,Whole Blood 146 mg/dL (75-99)
[2018-08-28 06:12] LABS: Basophils % (A) 0 %; Eosinophils # (A) 0.1 k/uL (0-0.7); Eosinophils % (A) 1 %; HCT 43.4 % (39.0-53.0); HGB 13.8 gm/dL (13.0-17.5); Lymphocytes # (A) 2.5 k/uL (1.0-4.8); Lymphocytes % (A) 22 %; MCH 29.3 pg (25.0-35.0); MCHC 31.9 g/dL (31.0-37.0); Mean Platelet Volume 6.5; Monocytes % (A) 9 %; Neutrophils # (A) 7.5 k/uL (1.3-7.7); Neutrophils % (A) 66 %; Platelet Count 293 k/uL (150-450); RBC 4.72 m/uL (4.30-5.90); RDW 13.6 % (11.5-15.5); WBC 11.4 k/uL (3.8-10.6)
[2018-08-28] MEDS: INSULIN ASPART 100 UNIT/ML 1 ML 10 ML VIAL SQ SCH ×5 (06:14→21:56)
[2018-08-28 06:21] LABS: Glucose,Whole Blood 84 mg/dL (75-99)
[2018-08-28 06:35] LABS: Calcium 8.9 mg/dL (8.4-10.2); Potassium 4.4 mmol/L (3.5-5.1)
[2018-08-28] MEDS: PANTOPRAZOLE 40 MG TABLET PO SCH (06:36)
--- NOTE | 2018-08-28 07:24 | P.PN ---
Subjective Progress Note Date: 08/28/18 Principal diagnosis: Acute inferior ST patient in my This is a pleasant 62-year-old gentleman with a past medical history significant for diabetes, hypertension, and prior history of smoking, who presented to the emergency room with chest discomfort and was diagnosed with acute inferior ST patient myocardial infarction be he underwent an emergent heart catheterization and was found to have totally occluded RCA in the midportion. He underwent successful stenting of the RCA. On follow-up with the patient today, 08/28/2018, the patient is asymptomatic from the cardiac standpoint. The right groin is soft and nontender and without any bruises. He continues to be on dual antiplatelet therapy along with metoprolol as well as losartan. The echocardiogram revealed normal LV function without any significant valvular abnormalities. I do recommend keeping the patient for additional 24 hours with possible discharge tomorrow if there is no events. Objective - Vital Signs Vital signs: Vital Signs Temp 97.9 F 08/28/18 03:22 Pulse 80 08/28/18 03:22 Resp 18 08/28/18 03:22 BP 114/63 08/28/18 03:22 Pulse Ox 93 L 08/28/18 03:22 Intake & Output 08/27/18 08/28/18 08/28/18 18:59 06:59 18:59 Intake Total 2228.507 640 Output Total 825 1400 Balance 1403.507 -760 Weight 133.81 kg 133.6 kg Intake: IV 1250 Sodium Chloride 0.9% 1, 1250 000 ml @ 125 mls/hr IV . Q8H [facility]I Rx#:[id number] Intake, IV Titration 128.507 Amount DOPamine DRIP 800 mg In 3.507 Dextrose/Water 1 500ml. bag @ 3 MCG/KG/MIN 15.05 mls/hr IV .Q24H [facility]I Rx#: [id number] Sodium Chloride 0.9% 1, 125 000 ml @ 125 mls/hr IV . Q8H HARI Rx#:[id number] Oral 850 640 Output: Urine 825 1400 Other: Voiding Method Indwelling Catheter Urinal ABP, PAP, CO, CI - Last Documented Arterial Blood Pressure 105/52 - Constitutional General appearance: Present: no acute distress - Respiratory Respiratory: bilateral: CTA - Cardiovascular Rhythm: regular Heart sounds: normal: S1, S2 - Labs CBC & Chem 7: 08/28/18 05:42 08/28/18 05:42 Labs: Abnormal Lab Results - Last 24 Hours (Table) 08/27/18 08/27/18 08/27/18 Range/Units 04:35 09:26 10:50 WBC (3.8-10.6) k/uL POC Glucose (mg/dL) 131 H (75-99) mg/dL Hemoglobin A1c 7.4 H (4.0-6.0) % Troponin I 26.900 H* (0.000-0.034) ng/mL 08/27/18 08/27/18 08/27/18 Range/Units 11:48 16:29 16:51 WBC (3.8-10.6) k/uL POC Glucose (mg/dL) 114 H 56 L 105 H (75-99) mg/dL Hemoglobin A1c (4.0-6.0) % Troponin I (0.000-0.034) ng/mL 08/27/18 08/27/18 08/27/18 Range/Units 17:12 17:20 20:26 WBC (3.8-10.6) k/uL POC Glucose (mg/dL) 121 H 125 H (75-99) mg/dL Hemoglobin A1c (4.0-6.0) % Troponin I 21.800 H* (0.000-0.034) ng/mL 08/28/18 08/28/18 Range/Units 02:49 05:42 WBC 11.4 H (3.8-10.6) k/uL POC Glucose (mg/dL) 146 H (75-99) mg/dL Hemoglobin A1c (4.0-6.0) % Troponin I (0.000-0.034) ng/mL Assessment and Plan Assessment: Assessment #[address] patient myocardial infarction and status post PCI of the RCA #2 diabetes type 2 #3 hypertension #4 history of smoking Plan #1 continue dual antiplatelet therapy along with high intensity statin #2 the echo revealed normal LV function without any wall motion abnormalities #3 monitor the patient for additional 24 hours #4 follow-up with the patient
[2018-08-28] MEDS: ASPIRIN 81 MG PO SCH (08:22)
[2018-08-28] MEDS: GLIMEPIRIDE 2 MG TAB PO SCH ×2 (08:22→20:53)
[2018-08-28] MEDS: METOPROLOL TARTRATE 12.5 MG TAB PO SCH ×2 (08:22→20:52)
[2018-08-28] MEDS: TICAGRELOR 90 MG TAB PO SCH ×2 (08:26→20:54)
[2018-08-28 11:57] LABS: Glucose,Whole Blood 94 mg/dL (75-99)
[2018-08-28] MEDS: oxyCODONE-APAP 10-325MG 1 EACH TAB PO PRN (14:17)
--- NOTE | 2018-08-28 14:26 | P.PN ---
Subjective Progress Note Date: 08/28/18 62 year-old morbidly obese male one of Dr. Godoy patient with chronic history of diabetes obstructive sleep apnea hypertension and hyperlipidemia who has been doing well never had any cardiac history according to him. Patient started having problem with a septic tank asking for help with his family try to do repair on his own developed to have significant tightness pressure and shortness of breath on Sunday his symptoms become much worse on Sunday he developed to have significant midsternal chest pain radiating toward the left upper side of his chest wall associated with nausea and worsening dyspnea and shortness of breath. With the cold sweat and his current symptoms family decided to drive him to the emergency room a become very skier close to fire department end up pulling out and asked if I department for help patient was escorted to [facility] from by the fire department where was seen and evaluated CK with troponin came back elevated patient had an ST IN on EKG. Cardiology were called and patient was taken to the ballistics laboratory gunsmith with Dr. Zapata had a heart catheter showed total occlusion of the right coronary artery and small stenosis in the LAD and circumflex. Dr. WILBERT cochran ended up performing PCI with stent placement of the RCA successfully patient was admitted to the intensive care unit after procedure. Patient is resting comfortably at this point doing well 08/28: Patient states that he is having a better day. He was able to sleep. He denies having any chest pain. He has been afebrile, pulse ox is 93-98% on room air, pulse is running in the 70s and 80s, blood pressure 138/53. WBC 11.4, hemoglobin 13.8. Creatinine 1.08. Anticipate discharge home tomorrow. Review of Systems CONSTITUTIONAL: Well-developed no acute respiratory distress. Denies insomnia EYES: No icterus sclerae, no conjunctivitis. EARS, NOSE, MOUTH, THROAT, and FACE: No sore throat, lymphadenopathy, carotid bruits or deformity. RESPIRATORY: Positive shortness of breath and dyspnea CARDIOVASCULAR: Positive chest pain or angina and palpitation GASTROINTESTINAL: No Abd pain, Nausea or vomiting, no Diarrhea or constipation, No GI Bleed, no distention or masses. GENITOURINARY: Negative for Hematuria or UTI, no kidney stones. INTEGUMENT/BREAST: Negative for any muscular injury with mild osteoarthritis.. HEMATOLOGIC/LYMPHATIC: Negative for bleed or purpura. MUSCULOSKELTAL: Negative for Myalgia or arthralgia. NEURLOGICAL: No LOC, Sz or syncope, blurred vision dizziness or abnormality.. BEHAVIORAL/PSYCH: Negative. ENDOCRINE: Negative. Objective - Vital Signs Vital signs: Vital Signs Temp 98.1 F 08/28/18 12:00 Pulse 67 08/28/18 12:00 Resp 18 08/28/18 12:00 BP 145/78 08/28/18 12:00 Pulse Ox 98 08/28/18 12:00 Intake & Output 08/27/18 08/28/18 08/28/18 18:59 06:59 18:59 Intake Total 2228.507 640 720 Output Total 825 1400 Balance 1403.507 -760 720 Weight 133.81 kg 133.6 kg Intake: IV 1250 Sodium Chloride 0.9% 1, 1250 000 ml @ 125 mls/hr IV . Q8H HARI Rx#:[id number] Intake, IV Titration 128.507 Amount DOPamine DRIP 800 mg In 3.507 Dextrose/Water 1 500ml. bag @ 3 MCG/KG/MIN 15.05 mls/hr IV .Q24H HARI Rx#: [id number] Sodium Chloride 0.9% 1, 125 000 ml @ 125 mls/hr IV . Q8H HARI Rx#:[id number] Oral 850 640 720 Output: Urine 825 1400 Other: Voiding Method Indwelling Catheter Urinal ABP, PAP, CO, CI - Last Documented Arterial Blood Pressure 105/52 - Exam General Appearance: Alert, cooperative, no distress, appears stated age. Morbidly obese Neck HEENT: Supple, no lymphadenopathy, no thyroid enlargement, no carotid bruits. Lungs: Decreased breath sound bilaterally fine rhonchi Chest Wall: Chest wall normal expansion with deep inspiration no tenderness and no deformity was found on exam, no costochondral pain or discomfort. Heart: Regular rate and rhythm, S1, S2 normal, no murmur, rub or gallop. Back: Symmetric, no curvature, ROM normal, no CVA tenderness. Abdomen: Soft, non-tender, bowel sounds active all four quadrants, no masses, no organomegaly. Extremities: Extremities normal, atraumatic, no cyanosis or edema. Pressure in the right groin area from his heart catheter site the sheath of the catheter is out. Pulses: 2+ and symmetric. Skin: Skin color, texture, tugor normal, no rashes or lesions. Neurologic: Alert oriented x3 cranial nerves II through XII intact, no motor deficit, no abnormal balance or gait. - Labs CBC & Chem 7: 08/28/18 05:42 08/28/18 05:42 Labs: Abnormal Lab Results - Last 24 Hours (Table) 08/27/18 08/27/18 08/27/18 Range/Units 04:35 16:29 16:51 WBC (3.8-10.6) k/uL POC Glucose (mg/dL) 56 L 105 H (75-99) mg/dL Hemoglobin A1c 7.4 H (4.0-6.0) % Troponin I (0.000-0.034) ng/mL 08/27/18 08/27/18 08/27/18 Range/Units 17:12 17:20 20:26 WBC (3.8-10.6) k/uL POC Glucose (mg/dL) 121 H 125 H (75-99) mg/dL Hemoglobin A1c (4.0-6.0) % Troponin I 21.800 H* (0.000-0.034) ng/mL 08/28/18 08/28/18 Range/Units 02:49 05:42 WBC 11.4 H (3.8-10.6) k/uL POC Glucose (mg/dL) 146 H (75-99) mg/dL Hemoglobin A1c (4.0-6.0) % Troponin I (0.000-0.034) ng/mL Assessment and Plan Plan: 1 acute myocardial infarction mostly [address] IN: Patient made it to the ballistics laboratory gunsmith had an angioplasty and stent placement with cardiology will continue secondary prevention with aspirin 81 mg daily, atorvastatin 80 mg at bedtime, Lopressor 12.5 mg twice daily, Proventil 90 mg twice daily. 2 post PCI and stent placement: Stable and doing well. 3 type 2 diabetes: Patient has been on glyburide, continue oral hypoglycemic agent continue Accu-Chek with sliding scales coverage. 4 hypertension: Patient has been on losartan HCT continue medication and at smaller dose of beta jean. 5 hyperlipidemia: Patient was started on high dose of atorvastatin 80 mg daily. 6 chronic pain syndrome: Has been on oxycodone 40 mg twice a day along with Percocet 10 mg every 12 hours combined with gabapentin 1200 mg at bedtime and Zanaflex twice a day continue medication but lower the dose of oxycodone to 20 mg at this point is discharged from the hospital. 7 neuropathy with worsening symptoms: Patient will continue gabapentin for now. 8 severe GERD: Has been on omeprazole 20 mg a day continue medication. 9 History of obstructive sleep apnea: Post surgery patient is not using any CPAP at this point highly recommended to go back for testing and if needed to start using CPAP from now on. 10 DVT prophylaxis: Patient will have early mobilization and knee-high ELLY hose. CODE STATUS: Full code. Discharge plan: Home tomorrow Impression and plan of care have been directed as dictated by the signing physician. Tiffanie Moore nurse practitioner acting as scribe for signing physician.
[2018-08-28 16:15] LABS: Glucose,Whole Blood 110 mg/dL (75-99)
[2018-08-28] MEDS: ATORVASTATIN 80 MG TAB PO SCH (20:53)
[2018-08-28] MEDS: GABAPENTIN 400 MG CAP PO SCH (20:53)
[2018-08-28] MEDS: AMITRIPTYLINE HCL 50 MG TAB PO SCH (20:53)
[2018-08-28 21:37] LABS: Glucose,Whole Blood 133 mg/dL (75-99)
[2018-08-29] MEDS: INSULIN ASPART 100 UNIT/ML 1 ML 10 ML VIAL SQ SCH ×2 (02:06→06:33)
[2018-08-29 02:09] LABS: Glucose,Whole Blood 88 mg/dL (75-99)
[2018-08-29] MEDS: PANTOPRAZOLE 40 MG TABLET PO SCH (05:48)
[2018-08-29] MEDS: oxyCODONE-APAP 10-325MG 1 EACH TAB PO PRN (05:48)
[2018-08-29 05:59] LABS: Glucose,Whole Blood 124 mg/dL (75-99)
[2018-08-29 07:21] LABS: Basophils # (A) 0.1 k/uL (0-0.2); Basophils % (A) 1 %; Eosinophils # (A) 0.3 k/uL (0-0.7); Eosinophils % (A) 2 %; HCT 41.7 % (39.0-53.0); HGB 13.3 gm/dL (13.0-17.5); Lymphocytes # (A) 2.5 k/uL (1.0-4.8); Lymphocytes % (A) 23 %; MCH 29.6 pg (25.0-35.0); MCHC 31.8 g/dL (31.0-37.0); Mean Platelet Volume 6.2; Monocytes # (A) 0.8 k/uL (0-1.0); Monocytes % (A) 8 %; Neutrophils % (A) 65 %; Platelet Count 282 k/uL (150-450); RBC 4.48 m/uL (4.30-5.90); RDW 13.8 % (11.5-15.5); WBC 10.8 k/uL (3.8-10.6)
[2018-08-29 07:41] LABS: Calcium 8.7 mg/dL (8.4-10.2); Potassium 4.1 mmol/L (3.5-5.1)
--- NOTE | 2018-08-29 08:12 | P.PN ---
Subjective Progress Note Date: 08/29/18 Principal diagnosis: Acute inferior ST patient in my This is a pleasant 62-year-old gentleman with a past medical history significant for diabetes, hypertension, and prior history of smoking, who presented to the emergency room with chest discomfort and was diagnosed with acute inferior ST patient myocardial infarction be he underwent an emergent heart catheterization and was found to have totally occluded RCA in the midportion. He underwent successful stenting of the RCA. On follow-up with the patient today, 08/29/2018, the patient is asymptomatic from the cardiac standpoint. The right groin is soft and nontender and without any bruises. He continues to be on dual antiplatelet therapy along with metoprolol as well as losartan. The echocardiogram revealed normal LV function without any significant valvular abnormalities. The patient can be discharged later on today. Objective - Vital Signs Vital signs: Vital Signs Temp 97.8 F 08/29/18 06:40 Pulse 63 08/29/18 06:40 Resp 17 08/29/18 06:40 BP 130/65 08/29/18 06:40 Pulse Ox 96 08/29/18 06:40 Intake & Output 08/28/18 08/29/18 08/29/18 18:59 06:59 18:59 Intake Total 1080 900 Balance 1080 900 Weight 133 kg Intake: Oral 1080 900 Other: Voiding Method Toilet # Voids 2 2 ABP, PAP, CO, CI - Last Documented Arterial Blood Pressure 105/52 - Constitutional General appearance: Present: no acute distress - Respiratory Respiratory: bilateral: CTA - Cardiovascular Rhythm: regular Heart sounds: normal: S1, S2 - Labs CBC & Chem 7: 08/29/18 06:28 08/29/18 06:28 Labs: Abnormal Lab Results - Last 24 Hours (Table) 08/28/18 08/28/18 08/29/18 Range/Units 16:10 21:35 05:51 WBC (3.8-10.6) k/uL Glucose (74-99) mg/dL POC Glucose (mg/dL) 110 H 133 H 124 H (75-99) mg/dL 08/29/18 08/29/18 Range/Units 06:28 06:28 WBC 10.8 H (3.8-10.6) k/uL Glucose 117 H (74-99) mg/dL POC Glucose (mg/dL) (75-99) mg/dL Assessment and Plan Assessment: Assessment #[address] patient myocardial infarction and status post PCI of the RCA #2 diabetes type 2 #3 hypertension #4 history of smoking Plan #1 continue dual antiplatelet therapy along with high intensity statin #2 the echo revealed normal LV function without any wall motion abnormalities #3 the patient can be discharged later on today.
[2018-08-29] MEDS: ASPIRIN 81 MG PO SCH (08:31)
[2018-08-29] MEDS: GLIMEPIRIDE 2 MG TAB PO SCH (08:31)
[2018-08-29] MEDS: METOPROLOL TARTRATE 12.5 MG TAB PO SCH ×2 (08:31→09:37)
[2018-08-29] MEDS: TICAGRELOR 90 MG TAB PO SCH (08:31)
[2018-08-29 08:42] VITALS: PULSE 72; RESP 16; TEMP 97.6
[2018-08-29 09:43] VITALS: BP 132/75
--- NOTE | 2018-08-29 13:39 | P.DS ---
Providers Date of admission: 08/26/18 18:04 Expected date of discharge: 08/29/18 Attending physician: Donavan Carcamo Consults: 08/26/18 17:56 Consult Physician Stat Consulting Provider: Venice Melgoza Consult Reason/Comments: STEMI ACTIVATION COMPLETE Do you want consulting provider notified?: Yes 08/26/18 20:13 Consult Physician Routine Consulting Provider: Cardiology Rhona Consult Reason/Comments: Post Interventional patient Do you want consulting provider notified?: Already Contacted Primary care physician: Tai Godoy [facility] Course: 62 year-old morbidly obese male one of Dr. Godoy patient with chronic history of diabetes obstructive sleep apnea hypertension and hyperlipidemia who has been doing well never had any cardiac history according to him. Patient started having problem with a septic tank asking for help with his family try to do repair on his own developed to have significant tightness pressure and shortness of breath on Sunday his symptoms become much worse on Sunday he developed to have significant midsternal chest pain radiating toward the left upper side of his chest wall associated with nausea and worsening dyspnea and shortness of breath. With the cold sweat and his current symptoms family decided to drive him to the emergency room a become very skier close to fire department end up pulling out and asked if I department for help patient was escorted to [facility] from by the fire department where was seen and evaluated CK with troponin came back elevated patient had an ST NM on EKG. Cardiology were called and patient was taken to the labor relations director with Dr. Zapata had a heart catheter showed total occlusion of the right coronary artery and small stenosis in the LAD and circumflex. Dr. WILBERT cochran ended up performing PCI with stent placement of the RCA successfully patient was admitted to the intensive care unit after procedure. Patient is resting comfortably at this point doing well 08/28: Patient states that he is having a better day. He was able to sleep. He denies having any chest pain. He has been afebrile, pulse ox is 93-98% on room air, pulse is running in the 70s and 80s, blood pressure 138/53. WBC 11.4, hemoglobin 13.8. Creatinine 1.08. Anticipate discharge home tomorrow. 08/29: Patient denies any chest pain or shortness of breath, no lightheadedness or dizziness. Patient has been seen by cardiology and has been cleared for discharge. He has been afebrile, heart rate running in the 60s and 70s, blood pressure 132/75, pulse ox 93-96% on room air. audit manager has set up VNA. Discussed with patient recommendations for sleep study as an outpatient. Patient will be discharged home today in stable condition. Discharge diagnoses: [address] elevated myocardial infarction 2 post PCI and stent placement 3 type 2 diabetes 4 hypertension 5 hyperlipidemia 6 chronic pain syndrome 7 diabetic neuropathy 8 severe GERD 9 History of obstructive sleep apnea: Post surgery patient is not using any CPAP at this point highly recommended to go back for testing Discharge plan: Home with VNA Impression and plan of care have been directed as dictated by the signing physician. Tiffanie Moore nurse practitioner acting as scribe for signing physician. Patient Condition at Discharge: Good Plan - Discharge Summary Discharge Rx Participant: Yes New Discharge Prescriptions: New Aspirin 81 mg PO DAILY chew Atorvastatin [Lipitor] 80 mg PO HS #30 tab Metoprolol Tartrate [Lopressor] 12.5 mg PO BID #60 tab Nitroglycerin Sl Tabs [Nitrostat] 0.4 mg SUBLINGUAL Q5M PRN #25 tab PRN Reason: Chest Pain Ticagrelor [Brilinta] 90 mg PO BID #60 tab Amitriptyline HCl [Elavil] 100 mg PO HS tab Clopidogrel Bisulfate [Plavix] 75 mg PO DAILY #30 tab Continue Omeprazole [PriLOSEC] 20 mg PO AC-BRKFST oxyCODONE HCL/ACETAMINOPHEN [Percocet 10-325 mg] 1 tab PO BID PRN PRN Reason: Pain Losartan/Hydrochlorothiazide [Losartan-Hctz 100-12.5 mg Tab] 1 tab PO QAM PRN PRN Reason: HIGH BP Gabapentin [Neurontin] 600 - 1,200 mg PO BID Glimepiride [Amaryl] 2 mg PO BID tiZANidine [Zanaflex] 2 - 4 mg PO BID PRN PRN Reason: Muscle Spasm oxyCODONE HCL 40 mg PO BID ALPRAZolam [Xanax] 1 mg PO HS PRN PRN Reason: Insomnia Discharge Medication List Omeprazole [PriLOSEC] 20 mg PO AC-BRKFST 12/06/13 [History] oxyCODONE HCL/ACETAMINOPHEN [Percocet 10-325 mg] 1 tab PO BID PRN 05/10/14 [ History] Losartan/Hydrochlorothiazide [Losartan-Hctz 100-12.5 mg Tab] 1 tab PO QAM PRN [History] Gabapentin [Neurontin] 600 - 1,200 mg PO BID 06/29/16 [History] Glimepiride [Amaryl] 2 mg PO BID 06/26/17 [History] ALPRAZolam [Xanax] 1 mg PO HS PRN 08/26/18 [History] oxyCODONE HCL 40 mg PO BID 08/26/18 [History] tiZANidine [Zanaflex] 2 - 4 mg PO BID PRN 08/26/18 [History] Amitriptyline HCl [Elavil] 100 mg PO HS tab 08/29/18 [Rx] Aspirin 81 mg PO DAILY chew 08/29/18 [Rx] Atorvastatin [Lipitor] 80 mg PO HS #30 tab 08/29/18 [Rx] Clopidogrel Bisulfate [Plavix] 75 mg PO DAILY #30 tab 08/29/18 [Rx] Metoprolol Tartrate [Lopressor] 12.5 mg PO BID #60 tab 08/29/18 [Rx] Nitroglycerin Sl Tabs [Nitrostat] 0.4 mg SUBLINGUAL Q5M PRN #25 tab 08/29/18 [Rx ] Ticagrelor [Brilinta] 90 mg PO BID #60 tab 08/29/18 [Rx] Follow up Appointment(s)/Referral(s): Tai Godoy DO [Primary Care Provider] - 1 Week (Office will call with follow up appointment.) Juliet Zapata MD [STAFF PHYSICIAN] - 09/06/18 4:30 pm VNA Visiting Nurse, [NON-STAFF] - 1-2 Days Patient Instructions/Handouts: Heart Healthy Diet (DC), Coronary Intravascular Stent Placement (DC) Activity/Diet/Wound Care/Special Instructions: Brilinta copay is high. Free month coupon to be applied. Plavix prescription in chart for following month Pt agreeble to dc rx at discharge. Discharge Disposition: HOME WITH HOME HEALTH SERVICES
== END 2018-08-29 11:07 | disposition home health service (06) | DRG 247 ==
LOC: EC 17:47 → 2SICU 18:04 → 3SCARD 08-28 01:19
PROVIDERS: ADMIT Internal Medicine Geriatric Medicine; ATTEND Internal Medicine Geriatric Medicine
PROC: 027034Z Dilation of Coronary Artery, One Artery with Drug-eluting Intraluminal Device, Percutaneous Approach (ICD-10-PCS; principal; 2018-08-26 18:40)
PROC: 4A023N7 Measurement of Cardiac Sampling and Pressure, Left Heart, Percutaneous Approach (ICD-10-PCS; 2018-08-26 18:40)
PROC: B2111ZZ Fluoroscopy of Multiple Coronary Arteries using Low Osmolar Contrast (ICD-10-PCS; 2018-08-26 18:40)
DX: I21.11 ST elevation (STEMI) myocardial infarction involving right coronary artery (principal); E11.9 Type 2 diabetes mellitus without complications; I10 Essential (primary) hypertension; G47.33 Obstructive sleep apnea (adult) (pediatric); E11.40 Type 2 diabetes mellitus with diabetic neuropathy, unspecified; K21.9 Gastro-esophageal reflux disease without esophagitis; G89.4 Chronic pain syndrome; E66.01 Morbid (severe) obesity due to excess calories; I25.10 Atherosclerotic heart disease of native coronary artery without angina pectoris; E78.5 Hyperlipidemia, unspecified; I25.2 Old myocardial infarction; Z79.84 Long term (current) use of oral hypoglycemic drugs; Z79.899 Other long term (current) drug therapy; Z87.891 Personal history of nicotine dependence
CPT/HCPCS: 71045; 76937; 80048; 80053; 82550; 82553; 83036; 84484; 85025; 85610; 85730; 93005; 93306; 93454; 96374; 99285; C1874

== ENCOUNTER 2018-09-02 15:26 | Observation (INO) | payer MEDICARE ==
--- NOTE | 2018-09-02 16:18 | ED ---
General Adult HPI - General Chief complaint: Syncope Stated complaint: Abn ekg /sweats Time Seen by Provider: 09/02/18 16:04 Source: EMS Mode of arrival: EMS Limitations: no limitations - History of Present Illness Initial comments: Dictation was produced using [employer] dictation software. please excuse any grammatical, word or spelling errors. Chief Complaint: 62-year-old male with recent history of PA with cardiac stenting presents with episode of syncope History of Present Illness: 62-year-old male. Patient is familiar to me I saw him last week for acute elevation PA. Patient had large RCA occlusion. Patient has been having multiple episodes of feeling faint going pale. Patient was at his primary care's office were one of these episodes was witnessed. He was instructed to come to the emergency department. Patient did not fall to the ground or hit his head however he was observed to turn pale and diaphoretic. Patient feels a symptomatic when he is not moving. Denies any exacerbating or mitigating factors. He has no complaints at this time. The ROS documented in this emergency department record has been reviewed and confirmed by me. Those systems with pertinent positive or negative responses have been documented in the HPI. All other systems are other negative and/or noncontributory. PHYSICAL EXAM: General Impression: Alert and oriented x3, not in acute distress HEENT: Normocephalic atraumatic, extra-ocular movements intact, pupils equal and reactive to light bilaterally, mucous membranes moist. Cardiovascular: Heart regular rate and rhythm, S1&S2 audible, no murmurs, rubs or gallops Chest: Lungs clear to auscultation bilaterally, no rhonchi, no wheeze, no rales Abdomen: Bowel sounds present, abdomen soft, non-tender, non-distended, no organomegaly Musculoskeletal: Pulses present and equal in all extremities, no peripheral edema Motor: Power 5/5 bilaterally, no focal deficits noted Neurological: CN II-XII grossly intact, no focal motor or sensory deficits noted Skin: Intact with no visualized rashes Psych: Normal affect and mood ED course: 62yo Male with episodes of syncope status post PA with successful coronary artery stenting. As upon arrival are within acceptable limits. EKGs benign.Laboratory evaluation obtained. CBC, coag panel, metabolic panel is unremarkable. Patient has troponin levels are 0.262 which is down trending from when he was here. Patient has negative CK-MB. At this point there is no clinical suspicion of acute infarction or ischemia. This elevated troponin is likely flexion of improvement patient has no electrolyte derangement. Chest x- ray is unremarkable. EKGs benign. Given recent ST segment elevation PA there is clinical suspicion that these episodes of syncope reflect cardiac dysrhythmia. Patient be admitted with cardiac monitoring. Cardiology to be on consultation. EKG interpretation: Ventricular rate 75, normal sinus rhythm, WY interval 192, care signed 4, QTc 444. No WY prolongation, no QTC prolongation, no ST or T- wave changes noted. s. Overall, this EKG is unremarkable - Related Data Home Medications Medication Instructions Recorded Confirmed Omeprazole [PriLOSEC] 20 mg PO AC-BRKFST 12/06/13 09/02/18 oxyCODONE HCL/ACETAMINOPHEN 1 tab PO BID PRN 12/06/13 09/02/18 [Percocet 10-325 mg] Gabapentin [Neurontin] 600 - 1,200 mg PO BID 06/29/16 09/02/18 Glimepiride [Amaryl] 2 mg PO BID 06/26/17 09/02/18 ALPRAZolam [Xanax] 1 mg PO HS PRN 08/26/18 09/02/18 tiZANidine [Zanaflex] 2 - 4 mg PO BID PRN 08/26/18 09/02/18 Amitriptyline HCl [Elavil] 100 mg PO HS 09/02/18 09/02/18 oxyCODONE HCL 20 mg PO QID 09/02/18 09/02/18 Previous Rx's Medication Instructions Recorded Aspirin 81 mg PO DAILY chew 08/29/18 Atorvastatin [Lipitor] 80 mg PO HS #30 tab 08/29/18 Metoprolol Tartrate [Lopressor] 12.5 mg PO BID #60 tab 08/29/18 Nitroglycerin Sl Tabs [Nitrostat] 0.4 mg SUBLINGUAL Q5M PRN #25 tab 08/29/18 Ticagrelor [Brilinta] 90 mg PO BID #60 tab 08/29/18 Allergies Allergy/AdvReac Type Severity Reaction Status Date / Time morphine AdvReac Severe Confusion Verified 09/02/18 16:49 Review of Systems ROS Statement: Those systems with pertinent positive or pertinent negative responses have been documented in the HPI. ROS Other: All systems not noted in ROS Statement are negative. Past Medical History Past Medical History: Diabetes Mellitus, GERD/Reflux, Myocardial Infarction (PA) Additional Past Medical History / Comment(s): back pain, cervical degenerative disc disease, neuropathy, seizure post back sugery, spondylosis, post laminectomy syndrome, bilateral numbness and tingling of arms and legs Last Myocardial Infarction Date:: 08/26/18 History of Any Multi-Drug Resistant Organisms: None Reported Past Surgical History: Back Surgery, Heart Catheterization With Stent Additional Past Surgical History / Comment(s): back surgery X4 of lumbar spine, laminectomy and fusion, sleep apnea sx, right ulnar repair. Past Anesthesia/Blood Transfusion Reactions: Postoperative Nausea & Vomiting ( PONV) Past Psychological History: No Psychological Hx Reported Smoking Status: Former smoker Past Alcohol Use History: None Reported Past Drug Use History: None Reported - Past Family History Mother Family Medical History: No Reported History Father Family Medical History: Cancer Additional Family Medical History / Comment(s): prostate. General Exam Limitations: no limitations Course Vital Signs 09/02/18 09/02/18 09/02/18 15:28 15:50 17:03 Temperature 98.3 F Pulse Rate 69 74 Pulse Rate [ 77 Apical] Respiratory 18 20 Rate Blood Pressure 127/82 118/64 O2 Sat by Pulse 98 98 Oximetry Medical Decision Making - Lab Data Result diagrams: 09/02/18 15:55 09/02/18 15:55 Lab Results 09/02/18 09/02/18 09/02/18 Range/Units 15:55 15:55 15:55 WBC 10.7 H (3.8-10.6) k/uL RBC 5.34 (4.30-5.90) m/uL Hgb 15.5 (13.0-17.5) gm/dL Hct 47.9 (39.0-53.0) % MCV 89.7 (80.0-100.0) fL MCH 28.9 (25.0-35.0) pg MCHC 32.2 (31.0-37.0) g/dL RDW 13.5 (11.5-15.5) % Plt Count 299 (150-450) k/uL Neutrophils % 69 % Lymphocytes % 18 % Monocytes % 8 % Eosinophils % 3 % Basophils % 1 % Neutrophils # 7.3 (1.3-7.7) k/uL Lymphocytes # 1.9 (1.0-4.8) k/uL Monocytes # 0.9 (0-1.0) k/uL Eosinophils # 0.3 (0-0.7) k/uL Basophils # 0.1 (0-0.2) k/uL PT (9.0-12.0) sec INR (<1.2) APTT (22.0-30.0) sec Sodium 138 (137-145) mmol/L Potassium 4.9 (3.5-5.1) mmol/L Chloride 103 (98-107) mmol/L Carbon Dioxide 25 (22-30) mmol/L Anion Gap 10 mmol/L BUN 19 (9-20) mg/dL Creatinine 1.05 (0.66-1.25) mg/dL Est GFR (CKD-EPI)AfAm 89 (>60 ml/min/1.73 sqM) Est GFR (CKD-EPI)NonAf 77 (>60 ml/min/1.73 sqM) Glucose 95 (74-99) mg/dL Calcium 9.5 (8.4-10.2) mg/dL Magnesium (1.6-2.3) mg/dL Total Bilirubin 1.0 (0.2-1.3) mg/dL AST 42 (17-59) U/L ALT 45 (21-72) U/L Alkaline Phosphatase 117 (38-126) U/L Total Creatine Kinase 96 (55-170) U/L CK-MB (CK-2) 1.9 (0.0-2.4) ng/mL CK-MB (CK-2) Rel Index 2.0 Troponin I 0.262 H* (0.000-0.034) ng/mL Total Protein 8.3 H (6.3-8.2) g/dL Albumin 4.2 (3.5-5.0) g/dL 09/02/18 09/02/18 Range/Units 15:55 16:22 WBC (3.8-10.6) k/uL RBC (4.30-5.90) m/uL Hgb (13.0-17.5) gm/dL Hct (39.0-53.0) % MCV (80.0-100.0) fL MCH (25.0-35.0) pg MCHC (31.0-37.0) g/dL RDW (11.5-15.5) % Plt Count (150-450) k/uL Neutrophils % % Lymphocytes % % Monocytes % % Eosinophils % % Basophils % % Neutrophils # (1.3-7.7) k/uL Lymphocytes # (1.0-4.8) k/uL Monocytes # (0-1.0) k/uL Eosinophils # (0-0.7) k/uL Basophils # (0-0.2) k/uL PT 10.9 (9.0-12.0) sec INR 1.0 (<1.2) APTT 20.8 L (22.0-30.0) sec Sodium (137-145) mmol/L Potassium (3.5-5.1) mmol/L Chloride (98-107) mmol/L Carbon Dioxide (22-30) mmol/L Anion Gap mmol/L BUN (9-20) mg/dL Creatinine (0.66-1.25) mg/dL Est GFR (CKD-EPI)AfAm (>60 ml/min/1.73 sqM) Est GFR (CKD-EPI)NonAf (>60 ml/min/1.73 sqM) Glucose (74-99) mg/dL Calcium (8.4-10.2) mg/dL Magnesium 2.1 (1.6-2.3) mg/dL Total Bilirubin (0.2-1.3) mg/dL AST (17-59) U/L ALT (21-72) U/L Alkaline Phosphatase (38-126) U/L Total Creatine Kinase (55-170) U/L CK-MB (CK-2) (0.0-2.4) ng/mL CK-MB (CK-2) Rel Index Troponin I (0.000-0.034) ng/mL Total Protein (6.3-8.2) g/dL Albumin (3.5-5.0) g/dL Disposition Clinical Impression: Syncope Disposition: ADMITTED IP TO THIS [facility] Condition: Fair Referrals: Tai Godoy DO [Primary Care Provider] - 1-2 days Decision Time: 17:26
[2018-09-02 16:19] LABS: Basophils # (A) 0.1 k/uL (0-0.2); Basophils % (A) 1 %; Eosinophils # (A) 0.3 k/uL (0-0.7); Eosinophils % (A) 3 %; HCT 47.9 % (39.0-53.0); HGB 15.5 gm/dL (13.0-17.5); Lymphocytes # (A) 1.9 k/uL (1.0-4.8); Lymphocytes % (A) 18 %; MCH 28.9 pg (25.0-35.0); MCHC 32.2 g/dL (31.0-37.0); MCV 89.7 fL (80.0-100.0); Mean Platelet Volume 6.6; Monocytes # (A) 0.9 k/uL (0-1.0); Monocytes % (A) 8 %; Neutrophils # (A) 7.3 k/uL (1.3-7.7); Neutrophils % (A) 69 %; Platelet Count 299 k/uL (150-450); RBC 5.34 m/uL (4.30-5.90); RDW 13.5 % (11.5-15.5); WBC 10.7 k/uL (3.8-10.6)
[2018-09-02 16:27] LABS: Albumin 4.2 g/dL (3.5-5.0); Calcium 9.5 mg/dL (8.4-10.2); Potassium 4.9 mmol/L (3.5-5.1); Total Protein 8.3 g/dL (6.3-8.2)
[2018-09-02 16:28] LABS: Prothrombin Time 10.9 sec (9.0-12.0)
[2018-09-02 16:39] LABS: Partial Thromboplastin Time 20.8 sec (22.0-30.0)
--- NOTE | 2018-09-02 16:56 | XR ---
EXAMINATION TYPE: XR chest 2V DATE OF EXAM: 09/02/2018 COMPARISON: Chest x-ray August 26, 2018. HISTORY: Shortness of breath with exertion and chest pain. TECHNIQUE: Frontal and lateral views of the chest are obtained. FINDINGS: There is chronic parenchymal change with left basilar linear scarring and/or atelectasis a djacent to moderate to large size hiatal hernia without suspicious new focal air space opacity, pleur al effusion, or pneumothorax seen. The cardiac silhouette size remains within normal limits. The o sseous structures are intact. IMPRESSION: Chronic changes without acute pulmonary process.
[2018-09-02 16:57] LABS: Creatine Kinase MB 1.9 ng/mL (0.0-2.4)
[2018-09-02 17:02] LABS: Troponin I 0.262 ng/mL (0.000-0.034)
[2018-09-02] MEDS ORDERED: NALOXONE 0.4 MG/ML 1 ML VIAL IV PRN (17:26)
[2018-09-02] MEDS ORDERED: NITROGLYCERIN SL TABS 0.4 MG TAB SUBLINGUAL PRN (17:27)
[2018-09-02] MEDS ORDERED: ALPRAZolam 1 MG TAB PO PRN (17:27)
[2018-09-02] MEDS ORDERED: ATORVASTATIN 80 MG TAB PO SCH (21:00)
[2018-09-02] MEDS ORDERED: AMITRIPTYLINE HCL 50 MG TAB PO SCH (21:00)
[2018-09-02 21:04] LABS: Glucose,Whole Blood 136 mg/dL (75-99)
[2018-09-02] MEDS: TICAGRELOR 90 MG TAB PO SCH (21:25)
[2018-09-02] MEDS: METOPROLOL TARTRATE 12.5 MG TAB PO SCH (21:25)
[2018-09-02] MEDS: GLIMEPIRIDE 2 MG TAB PO SCH (21:25)
[2018-09-03] MEDS: GLIMEPIRIDE 2 MG TAB PO SCH (07:13)
[2018-09-03] MEDS: SODIUM CHLORIDE 0.9% 1,000 ML IV SCH ×2 (07:13→14:02)
[2018-09-03 07:16] LABS: Glucose,Whole Blood 81 mg/dL (75-99)
[2018-09-03] MEDS ORDERED: PANTOPRAZOLE 40 MG TABLET PO SCH (07:30)
[2018-09-03] MEDS ORDERED: ASPIRIN 81 MG PO SCH (09:00)
[2018-09-03] MEDS ORDERED: oxyCODONE-APAP 10-325MG 1 EACH TAB PO PRN (09:41)
[2018-09-03] MEDS: METOPROLOL TARTRATE 12.5 MG TAB PO SCH (09:46)
[2018-09-03 10:33] VITALS: RESP 20
[2018-09-03] MEDS: TICAGRELOR 90 MG TAB PO SCH (10:53)
[2018-09-03 12:15] VITALS: TEMP 97
[2018-09-03 12:26] LABS: Glucose,Whole Blood 103 mg/dL (75-99)
--- NOTE | 2018-09-03 13:34 | P.CRDCN ---
History of Present Illness Consult date: 09/03/18 Requesting physician: Francois Asher Consult reason: sycope Chief complaint: Clamminess and dizziness, near syncope History of present illness: This is a pleasant 62-year-old gentleman who was recently in the hospital with an inferior ST elevation myocardial infarction, he underwent angioplasty and stenting of the RCA at that time. Prior to that he did not have any history of hypertension, he is a diabetic, was initiated on statins for hyperlipidemia. He does have a past history of smoking but has not smoked for several years. He presents to the hospital on this occasion with symptoms of feeling clammy, becoming pale, and feeling as though he may pass out. Patient did not have any syncopal episodes. He was seen and evaluated by Dr. Godoy, an EKG was performed in his office which was concerning to Dr. Leyva and for this reason he was advised to come to the emergency room for further evaluation. EKG showed a normal sinus rhythm with no acute changes. EKG on arrival here showed a normal sinus rhythm with inferior Q waves. Chest x-ray showed chronic changes without any acute pulmonary process. His blood pressure on presentation here was 127/80, heart rate in the 60s to 70s. He did have one episode through the night last night where his blood pressure was around 80 systolic and other than that his blood pressure has been stable as has his heart rate. Blood sugar on arrival 136 subsequent to that it has been in the range of 81 and 103. White blood cell count 10.7, hemoglobin 15.5, platelet count 299. Sodium 138, potassium 4.9, BUN 10 and creatinine 1.0. Troponin 0.26, 0.14. At the time of my examination, patient is currently sitting up in a chair in his room in the emergency center, he denies any dizziness or lightheadedness, no chest discomfort. Past Medical History Past Medical History: Diabetes Mellitus, GERD/Reflux, Myocardial Infarction ([place]) Additional Past Medical History / Comment(s): back pain, cervical degenerative disc disease, neuropathy, seizure post back sugery, spondylosis, post laminectomy syndrome, bilateral numbness and tingling of arms and legs Last Myocardial Infarction Date:: 08/26/18 History of Any Multi-Drug Resistant Organisms: None Reported Past Surgical History: Back Surgery, Heart Catheterization With Stent Additional Past Surgical History / Comment(s): back surgery X4 of lumbar spine, laminectomy and fusion, sleep apnea sx, right ulnar repair. Past Anesthesia/Blood Transfusion Reactions: Postoperative Nausea & Vomiting ( PONV) Date of Last Stent Placement:: 08/26/17 Smoking Status: Former smoker - Past Family History Mother Family Medical History: No Reported History Father Family Medical History: Cancer Additional Family Medical History / Comment(s): prostate. Medications and Allergies Home Medications Medication Instructions Recorded Confirmed Type Omeprazole [PriLOSEC] 20 mg PO AC-BRKFST 12/06/13 09/02/18 History oxyCODONE HCL/ACETAMINOPHEN 1 tab PO BID PRN 12/06/13 09/02/18 History [Percocet 10-325 mg] Gabapentin [Neurontin] 600 - 1,200 mg PO BID 06/29/16 09/02/18 History Glimepiride [Amaryl] 2 mg PO HS 06/26/17 09/03/18 History ALPRAZolam [Xanax] 1 mg PO HS PRN 08/26/18 09/02/18 History tiZANidine [Zanaflex] 2 - 4 mg PO BID PRN 08/26/18 09/02/18 History Aspirin 81 mg PO DAILY chew 08/29/18 09/02/18 Rx Atorvastatin [Lipitor] 80 mg PO HS #30 tab 08/29/18 09/02/18 Rx Metoprolol Tartrate [Lopressor] 12.5 mg PO BID #60 tab 08/29/18 09/02/18 Rx Nitroglycerin Sl Tabs [Nitrostat] 0.4 mg SUBLINGUAL Q5M PRN #25 tab 08/29/1811/15 Rx Ticagrelor [Brilinta] 90 mg PO BID #60 tab 08/29/18 09/02/18 Rx Amitriptyline HCl [Elavil] 100 mg PO HS 09/02/18 09/02/18 History oxyCODONE HCL 20 mg PO QID 09/02/18 09/02/18 History Allergies Allergy/AdvReac Type Severity Reaction Status Date / Time morphine AdvReac Severe Confusion Verified 09/02/18 16:49 Physical Exam Vitals: Vital Signs Temp Pulse Pulse Resp BP BP Pulse Ox 09/03/18 12:00 97.0 F L 90 20 135/92 93 L 09/03/18 08:00 97.3 F L 83 20 142/87 96 09/03/18 04:00 67 18 106/71 96 09/03/18 02:00 61 18 90/66 92 L 09/03/18 01:00 64 18 107/69 94 L 09/03/18 00:00 66 16 89/53 95 09/02/18 23:00 79 18 113/79 94 L 09/02/18 21:04 91 20 122/65 98 09/02/18 17:03 74 20 118/64 98 09/02/18 15:50 77 09/02/18 15:28 98.3 F 69 18 127/82 98 Intake and Output 09/02/18 09/03/18 09/03/18 22:59 06:59 14:59 Intake Total 480 Output Total 300 Balance 180 Intake: Intake, IV Titration 240 Amount Sodium Chloride 0.9% 1, 240 000 ml @ 20 mls/hr IV . Q24H [facility] Rx#:[id number] Oral 240 Output: Urine 300 Other: Voiding Method Toilet Toilet # Voids 1 1 Weight 131.088 kg PHYSICAL EXAMINATION: GENERAL:-year-old gentleman in no acute distress at the time of my examination HEENT: Head is atraumatic, normocephalic. Pupils equal, round. Sclera anicteric. Conjunctiva are clear. Mucous membranes of the mouth are moist. Neck is supple. There is no elevated jugular venous pressure. No carotid] bruit is heard. HEART EXAMINATION: Heart S1, S2 normal. No murmur or gallop heard. CHEST EXAMINATION: Lungs are clear to auscultation and precussion. No chest wall tenderness is noted on palpation or with deep breathing. ABDOMEN: Soft, nontender. Bowel sounds are heard. No organomegaly noted. EXTREMITIES: 2+ peripheral pulses with no evidence of peripheral edema and no calf tenderness noted. NEUROLOGIC patient is awake, alert and oriented 3 . . Results 09/02/18 15:55 09/02/18 15:55 Cardiac Enzymes 09/02/18 09/02/18 09/03/18 Range/Units 15:55 15:55 10:50 AST 42 (17-59) U/L CK-MB (CK-2) 1.9 (0.0-2.4) ng/mL Troponin I 0.262 H* 0.143 H* (0.000-0.034) ng/mL Coagulation 09/02/18 Range/Units 15:55 PT 10.9 (9.0-12.0) sec APTT 20.8 L (22.0-30.0) sec CBC 09/02/18 Range/Units 15:55 WBC 10.7 H (3.8-10.6) k/uL RBC 5.34 (4.30-5.90) m/uL Hgb 15.5 (13.0-17.5) gm/dL Hct 47.9 (39.0-53.0) % Plt Count 299 (150-450) k/uL Comprehensive Metabolic Panel 09/02/18 Range/Units 15:55 Sodium 138 (137-145) mmol/L Potassium 4.9 (3.5-5.1) mmol/L Chloride 103 (98-107) mmol/L Carbon Dioxide 25 (22-30) mmol/L BUN 19 (9-20) mg/dL Creatinine 1.05 (0.66-1.25) mg/dL Glucose 95 (74-99) mg/dL Calcium 9.5 (8.4-10.2) mg/dL AST 42 (17-59) U/L ALT 45 (21-72) U/L Alkaline Phosphatase 117 (38-126) U/L Total Protein 8.3 H (6.3-8.2) g/dL Albumin 4.2 (3.5-5.0) g/dL Current Medications Generic Name Dose Route Start Last Admin Trade Name Freq PRN Reason Stop Dose Admin Alprazolam 1 mg 09/02/18 17:27 Xanax PO HS PRN Insomnia Amitriptyline HCl 100 mg 09/02/18 21:00 09/02/18 21:25 Elavil PO 100 mg HS HARI Administration Aspirin 81 mg 09/03/18 09:00 09/03/18 09:46 Aspirin PO 81 mg DAILY HARI Administration Atorvastatin Calcium 80 mg 09/02/18 21:00 09/02/18 21:25 Lipitor PO 80 mg HS HARI Administration Gabapentin 600 mg 09/03/18 21:00 Neurontin PO BID HARI Glimepiride 2 mg 09/02/18 21:00 09/03/18 07:13 Amaryl PO Not Given BID-W/MEALS [facility] Sodium Chloride 1,000 mls @ 20 mls/hr 09/02/18 17:30 09/03/18 07:13 Saline 0.9% IV Not Given .Q24H [facility] Metoprolol Tartrate 12.5 mg 09/02/18 21:00 09/03/18 09:46 Lopressor PO 12.5 mg BID HARI Administration Naloxone HCl 0.2 mg 09/02/18 17:26 Narcan IV Q2M PRN Opioid Reversal Nitroglycerin 0.4 mg 09/02/18 17:27 Nitrostat SUBLINGUAL Q5M PRN Chest Pain Oxycodone HCl 20 mg 09/03/18 13:00 09/03/18 09:53 Oxyir PO 20 mg QID [facility] Administration Oxycodone/Acetaminophen 1 each 09/03/18 09:41 Percocet 10-325 PO BID PRN Pain Pantoprazole Sodium 40 mg 09/03/18 07:30 09/03/18 06:48 Protonix PO 40 mg AC-BRKFST [facility] Administration Ticagrelor 90 mg 09/02/18 21:00 09/03/18 10:53 Brilinta PO 90 mg BID [facility] Administration Tizanidine HCl 2 mg 09/03/18 09:41 Zanaflex PO BID PRN Muscle Spasm Intake and Output 09/02/18 09/03/18 09/03/18 22:59 06:59 14:59 Intake Total 480 Output Total 300 Balance 180 Intake: Intake, IV Titration 240 Amount Sodium Chloride 0.9% 1, 240 000 ml @ 20 mls/hr IV . Q24H [facility] Rx#:[id number] Oral 240 Output: Urine 300 Other: Voiding Method Toilet Toilet # Voids 1 1 Weight 131.088 kg 09/02/18 15:55 09/02/18 15:55 EKG Interpretations (text) EKG shows normal sinus rhythm with inferior Q waves, no acute changes noted. Assessment and Plan Plan: Assessment and plan\ #1 symptoms of a clamminess and near syncope. Could be related to orthostatic hypotension or low blood sugars at the time. #2 diabetes #3 hyperlipidemia #[address] elevation [place] with stenting of the right coronary artery #5 abnormal troponins, downward trend from recent [place]. Plan We will check orthostatic blood pressure and heart rate on the patient, decrease Lopressor to 12-1/2 mg one tablet by mouth daily. From our perspective , the patient may be able to be discharged home and follow-up with cardiology as scheduled on Sunday. Continue baby aspirin along with Brilinta and Lipitor 80. DNP note has been reviewed, I agree with a documented findings and plan of care. Patient was seen and examined.
[2018-09-03 13:46] VITALS: BP 134/80; PULSE 82
[2018-09-03] MEDS ORDERED: GABAPENTIN 300 MG CAP PO SCH (21:00)
--- NOTE | 2018-09-04 08:39 | P.HPIM ---
History of Present Illness H&P Date: 09/03/18 This is a history of physical and discharge summary. This is a pleasant 62-year-old gentleman one of Dr. Godoy who was recently in the hospital with an inferior ST elevation myocardial infarction , he underwent angioplasty and stenting of the RCA at that time. Prior to that he did not have any history of hypertension, he is a diabetic, was initiated on statins for hyperlipidemia. He does have a past history of smoking but has not smoked for several years. He presents to the hospital on this occasion with symptoms of feeling clammy, becoming pale, and feeling as though he may pass out. Patient did not have any syncopal episodes. He was seen and evaluated by Dr. Godoy, an EKG was performed in his office which was concerning to Dr. Leyva and for this reason he was advised to come to the emergency room for further evaluation. EKG showed a normal sinus rhythm with no acute changes. EKG on arrival here showed a normal sinus rhythm with inferior Q waves. Chest x-ray showed chronic changes without any acute pulmonary process. His blood pressure on presentation here was 127/80, heart rate in the 60s to 70s. He did have one episode through the night last night where his blood pressure was around 80 systolic and other than that his blood pressure has been stable as has his heart rate. Blood sugar on arrival 136 subsequent to that it has been in the range of 81 and 103. White blood cell count 10.7, hemoglobin 15.5, platelet count 299. Sodium 138, potassium 4.9, BUN 10 and creatinine 1.0. Troponin 0.26, 0.14. At the time of my examination, patient is currently sitting up in a chair in his room in the emergency center, he denies any dizziness or lightheadedness, no chest discomfort. Patient was seen and evaluated by cardiology and he was cleared to be discharged from the in emergency department as the patient wanted to go home at this point and he has no acute of normalities his medications were adjusted by decreasing his metoprolol to 12.5 mg orally once every day and follow-up with cardiology as an outpatient. Review of Systems Constitutional: Reports weakness, Denies chronic headaches, Denies fever, Denies lethargy Eyes: denies blurred vision, denies bulging eye Ears: deny: decreased hearing Ears, nose, mouth and throat: Reports vertigo, Denies dysphagia, Denies neck lump, Denies swelling in throat, Denies sore throat Cardiovascular: Denies chest pain, Denies decreased exercise tolerance, Denies lightheadedness, Denies rapid heart beat, Denies shortness of breath, Denies syncope Respiratory: Denies congestion, Denies cough with sputum, Denies home oxygen, Denies sleep apnea, Denies snoring, Denies wheezing Gastrointestinal: Denies abdominal pain, Denies BRBPR, Denies excessive gas, Denies heartburn, Denies melena, Denies nausea, Denies vomiting Genitourinary: Reports nocturia, Denies dysuria Musculoskeletal: Denies myalgias Musculoskeletal: absent: ankle pain, ankle stiffness, ankle swelling, elbow pain , elbow stiffness, elbow swelling, foot pain, foot stiffness, foot swelling, hand pain, hand stiffness, hand swelling, hip pain, hip stiffness, hip swelling , knee pain, knee stiffness, knee swelling, shoulder pain, shoulder stiffness, shoulder swelling, wrist pain, wrist stiffness, wrist swelling Integumentary: Denies pruritus, Denies rash Neurological: Denies numbness, Denies weakness Psychiatric: Denies anxiety, Denies depression Endocrine: Denies fatigue, Denies weight change Past Medical History Past Medical History: Diabetes Mellitus, GERD/Reflux, Myocardial Infarction ([place]) Additional Past Medical History / Comment(s): back pain, cervical degenerative disc disease, neuropathy, seizure post back sugery, spondylosis, post laminectomy syndrome, bilateral numbness and tingling of arms and legs Last Myocardial Infarction Date:: 08/26/18 History of Any Multi-Drug Resistant Organisms: None Reported Past Surgical History: Back Surgery, Heart Catheterization With Stent Additional Past Surgical History / Comment(s): back surgery X4 of lumbar spine, laminectomy and fusion, sleep apnea sx, right ulnar repair. Past Anesthesia/Blood Transfusion Reactions: Postoperative Nausea & Vomiting ( PONV) Date of Last Stent Placement:: 08/26/17 Smoking Status: Former smoker - Past Family History Mother Family Medical History: No Reported History (Mother is 84-year-old had history of polio she broke her leg and she had no history of heart disease she still alive.) Father Family Medical History: Cancer, Coronary Artery Disease (CAD) (Father is 84-year -old alive at history of CAD post 5 vessel CABG he was 63-year-old and he also has history of prostate cancer.) Additional Family Medical History / Comment(s): prostate. Sister(s) Family Medical History: No Reported History (Patient has one sister no major medical problems.) Son(s) Family Medical History: No Reported History (Patient has one son no major medical problems.) Daughter(s) Family Medical History: No Reported History (Patient has one daughter with significant back problem she already had multiple back surgeries.) Medications and Allergies Home Medications Medication Instructions Recorded Confirmed Type Omeprazole [PriLOSEC] 20 mg PO AC-BRKFST 12/06/13 09/02/18 History oxyCODONE HCL/ACETAMINOPHEN 1 tab PO BID PRN 12/06/13 09/02/18 History [Percocet 10-325 mg] Gabapentin [Neurontin] 600 - 1,200 mg PO BID 06/29/16 09/02/18 History Glimepiride [Amaryl] 2 mg PO HS 06/26/17 09/03/18 History ALPRAZolam [Xanax] 1 mg PO HS PRN 08/26/18 09/02/18 History tiZANidine [Zanaflex] 2 - 4 mg PO BID PRN 08/26/18 09/02/18 History Aspirin 81 mg PO DAILY chew 08/29/18 09/02/18 Rx Atorvastatin [Lipitor] 80 mg PO HS #30 tab 08/29/18 09/02/18 Rx Nitroglycerin Sl Tabs [Nitrostat] 0.4 mg SUBLINGUAL Q5M PRN #25 tab 08/29/1811/15 Rx Ticagrelor [Brilinta] 90 mg PO BID #60 tab 08/29/18 09/02/18 Rx Amitriptyline HCl [Elavil] 100 mg PO HS 09/02/18 09/02/18 History oxyCODONE HCL 20 mg PO QID 09/02/18 09/02/18 History Metoprolol Tartrate [Lopressor] 12.5 mg PO DAILY #60 tab 09/03/18 09/02/18 Rx Allergies Allergy/AdvReac Type Severity Reaction Status Date / Time morphine AdvReac Severe Confusion Verified 09/02/18 16:49 Physical Exam Vitals: Vital Signs Temp Pulse Pulse Resp BP BP Pulse Ox 09/03/18 12:00 97.0 F L 90 20 135/92 93 L 09/03/18 08:00 97.3 F L 83 20 142/87 96 09/03/18 04:00 67 18 106/71 96 09/03/18 02:00 61 18 90/66 92 L 09/03/18 01:00 64 18 107/69 94 L 09/03/18 00:00 66 16 89/53 95 09/02/18 23:00 79 18 113/79 94 L 09/02/18 21:04 91 20 122/65 98 09/02/18 17:03 74 20 118/64 98 09/02/18 15:50 77 09/02/18 15:28 98.3 F 69 18 127/82 98 Intake and Output 09/02/18 09/03/18 09/03/18 22:59 06:59 14:59 Intake Total 480 Output Total 300 Balance 180 Intake: Intake, IV Titration 240 Amount Sodium Chloride 0.9% 1, 240 000 ml @ 20 mls/hr IV . Q24H [facility] Rx#:[id number] Oral 240 Output: Urine 300 Other: Voiding Method Toilet Toilet # Voids 1 1 Weight 131.088 kg - Constitutional General appearance: average body habitus, no acute distress - EENT Eyes: anicteric sclerae, EOMI, PERRLA, no ptosis, no scleral icterus, normal appearance ENT: hearing grossly normal, NA/AT, normal oropharynx, no thrush Ears: bilateral: normal - Neck Neck: no lymphadenopathy, normal ROM, no rigidity, no stridor, no thyromegaly Carotids: bilateral: upstroke normal Thyroid: bilateral: normal size - Respiratory Respiratory: bilateral: diminished, negative: dullness, rales, rhonchi, wheezing , prolonged expiration - Cardiovascular Rhythm: regular Heart sounds: normal: S1, S2 Abnormal Heart Sounds: systolic murmur, no S3 Gallop, no S4 Gallop, no click - Gastrointestinal General gastrointestinal: normal bowel sounds, soft, no splenomegaly, no tenderness, no umbilical hernia, no ventral hernia - Integumentary Integumentary: normal, normal turgor - Musculoskeletal Musculoskeletal: gait normal, strength equal bilaterally - Psychiatric Psychiatric: A&O x's 3, appropriate affect, intact judgment & insight Results CBC & Chem 7: 09/02/18 15:55 09/02/18 15:55 Labs: Abnormal Lab Results - Last 24 Hours (Table) 09/02/18 09/02/18 09/02/18 Range/Units 15:55 15:55 15:55 WBC 10.7 H (3.8-10.6) k/uL APTT (22.0-30.0) sec POC Glucose (mg/dL) (75-99) mg/dL Troponin I 0.262 H* (0.000-0.034) ng/mL Total Protein 8.3 H (6.3-8.2) g/dL 09/02/18 09/02/18 09/03/18 Range/Units 15:55 21:02 10:50 WBC (3.8-10.6) k/uL APTT 20.8 L (22.0-30.0) sec POC Glucose (mg/dL) 136 H (75-99) mg/dL Troponin I 0.143 H* (0.000-0.034) ng/mL Total Protein (6.3-8.2) g/dL 09/03/18 Range/Units 12:25 WBC (3.8-10.6) k/uL APTT (22.0-30.0) sec POC Glucose (mg/dL) 103 H (75-99) mg/dL Troponin I (0.000-0.034) ng/mL Total Protein (6.3-8.2) g/dL Thrombosis Risk Factor Assmnt - DVT/VTE Prophylaxis DVT/VTE Prophylaxis: Pharmacologic Prophylaxis ordered, Mechanical Prophylaxis ordered - Choose All That Apply Each Factor Represents 1 point: Age 41-60 years Thrombosis Risk Factor Assessment Total Risk Factor Score: 1 Thrombosis Risk Factor Assessment Level: Low Risk Assessment and Plan Assessment: Assessment and plan: 1. Orthostatic hypotension thought to be due to the use of beta jean. Decrease Lopressor to 12.5 mg orally once every day ambulate the patient and the patient is okay can be discharged home follow-up with cardiology as an outpatient. 2. Elevated troponin. The trend is down due to recent ST elevation [place]. 3. CAD post-PCI of the RCA about a week ago continue patient on aspirin 81 mg once every day, Brilinta 90 mg orally twice every day, Lopressor 12.5 mg orally once every day, Lipitor 80 mg orally once every day. 4. Hypertension and hypertensive cardio vascular disease. Continue Lopressor 12.5 mg orally once every day. 5. Hyperlipidemia. Continue Lipitor 80 mg orally once every day. 6. Diabetes mellitus type 2. Continue glimepiride 2 mg orally twice every day. 7. PAD. Patient will need to have a vascular testing as an outpatient. 8. Bilateral lower extremity neuropathy. Continue with gabapentin 600 mg orally twice every day. 9. Chronic low back pain continue with current pain management with oxycodone and Percocet along with gabapentin, and Elavil 100 mg at bedtime. 10. Anxiety. Xanax 0.5 mg orally twice every day. 11. Patient was cleared by cardiology to be discharged home. 12. 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
[2018-09-04] MEDS ORDERED: METOPROLOL TARTRATE 12.5 MG TAB PO SCH (09:00)
== END 2018-09-03 14:18 | disposition home or self-care (01) ==
LOC: EC 15:26 → 3SCARD 17:28
PROVIDERS: ADMIT Internal Medicine; ATTEND Internal Medicine
DX: I95.1 Orthostatic hypotension (principal); I25.10 Atherosclerotic heart disease of native coronary artery without angina pectoris; I11.9 Hypertensive heart disease without heart failure; E78.5 Hyperlipidemia, unspecified; E11.41 Type 2 diabetes mellitus with diabetic mononeuropathy; G57.93 Unspecified mononeuropathy of bilateral lower limbs; I73.9 Peripheral vascular disease, unspecified; G89.29 Other chronic pain; M54.5 Low back pain; F41.9 Anxiety disorder, unspecified; R23.1 Pallor; R20.0 Anesthesia of skin; G47.30 Sleep apnea, unspecified; R20.2 Paresthesia of skin; M47.9 Spondylosis, unspecified; K21.9 Gastro-esophageal reflux disease without esophagitis; I25.2 Old myocardial infarction; Z95.5 Presence of coronary angioplasty implant and graft; Z87.891 Personal history of nicotine dependence; M50.30 Other cervical disc degeneration, unspecified cervical region; M96.1 Postlaminectomy syndrome, not elsewhere classified; Z98.1 Arthrodesis status; Z79.84 Long term (current) use of oral hypoglycemic drugs; Z79.82 Long term (current) use of aspirin; Z79.891 Long term (current) use of opiate analgesic; Z79.899 Other long term (current) drug therapy; Z79.02 Long term (current) use of antithrombotics/antiplatelets; Z88.5 Allergy status to narcotic agent; Z80.42 Family history of malignant neoplasm of prostate
CPT/HCPCS: 99285; 36415; 93005; 80053; 82550; 82553; 83735; 84484 ×2; 85025; 85610; 85730; 71046; G0378 ×2

== ENCOUNTER → 2018-11-15 | Outpatient (CLI) | payer MEDICARE ==
[2018-11-15 16:23] LABS: HGB 15.4 gm/dL (13.0-17.5); MCH 29.2 pg (25.0-35.0); MCV 91.2 fL (80.0-100.0); Mean Platelet Volume 7.1; Platelet Count 281 k/uL (150-450); RBC 5.26 m/uL (4.30-5.90); RDW 14.4 % (11.5-15.5); WBC 7.5 k/uL (3.8-10.6)
[2018-11-15 16:32] LABS: Anion Gap 10 mmol/L; Blood Urea Nitrogen 14 mg/dL (9-20); Carbon Dioxide 26 mmol/L (22-30); Chloride 103 mmol/L (98-107); Potassium 4.1 mmol/L (3.5-5.1); Sodium 139 mmol/L (137-145)
== END ==
LOC: LABPAT 15:58
PROVIDERS: ATTEND Internal Medicine Cardiovascular Disease
DX: Z01.812 Encounter for preprocedural laboratory examination (principal); I25.118 Atherosclerotic heart disease of native coronary artery with other forms of angina pectoris
CPT/HCPCS: 36415; 80051; 82565; 84520; 85027

== ENCOUNTER 2018-11-19 12:16 | Day surgery (SDC) | payer MEDICARE ==
[~2018-11-19 12:16] MED LIST: ALPRAZolam 0.25 MG TAB PO PRN; ALPRAZolam 0.5 MG TAB PO PRN; ASPIRIN 325 MG TAB PO STA; ATORVASTATIN 80 MG TAB PO STA; NITROGLYCERIN SL TABS 0.4 MG TAB SUBLINGUAL PRN; SODIUM CHLORIDE 0.9% 1,000 ML in EMPTY BAG 1 BAG IV ONE
[2018-11-19] MEDS ORDERED: SODIUM CHLORIDE 0.9% 1,000 ML IV ONE (12:41)
[2018-11-19 12:43] LABS: Glucose,Whole Blood 112 mg/dL (75-99)
[2018-11-19] MEDS ORDERED: fentaNYL (PF) 50 MCG/ML 2 ML AMP ONE (13:43)
[2018-11-19] MEDS ORDERED: LIDOCAINE 1% INJ 10MG/ML (20 ML MDV) ONE (13:43)
[2018-11-19] MEDS ORDERED: fentaNYL (PF) 50 MCG/ML 2 ML AMP IV ONE (13:45)
[2018-11-19] MEDS ORDERED: MIDAZOLAM (PF) 2 MG/2 ML VIAL IV ONE (13:45)
[2018-11-19] MEDS ORDERED: LIDOCAINE 1% INJ 10MG/ML (20 ML MDV) SQ ONE (13:47)
[2018-11-19] MEDS ORDERED: IOPAMIDOL-370 100ML BTL INJ ONE (14:06)
[2018-11-19] MEDS ORDERED: RX INFO: IV CONTRAST WAS GIVEN 1 EACH MISC MISCELLANE PRN (14:46)
[2018-11-19] MEDS ORDERED: ALPRAZolam 1 MG TAB PO PRN (14:49)
[2018-11-19 14:53] VITALS: RESP 18; TEMP 97.6
[2018-11-19 16:12] VITALS: BMI 42.5
[2018-11-19 16:33] VITALS: BP 143/82
[2018-11-19 16:46] LABS: Glucose,Whole Blood 168 mg/dL (75-99)
[2018-11-19 20:26] VITALS: PULSE 70
[2018-11-19] MEDS ORDERED: GLIMEPIRIDE 2 MG TAB PO SCH (21:00)
[2018-11-19] MEDS ORDERED: ATORVASTATIN 80 MG TAB PO SCH (21:00)
[2018-11-19] MEDS ORDERED: METOPROLOL TARTRATE 12.5 MG TAB PO SCH (21:00)
[2018-11-19] MEDS ORDERED: GABAPENTIN 400 MG CAP PO SCH (21:00)
[2018-11-19] MEDS ORDERED: AMITRIPTYLINE HCL 50 MG TAB PO SCH (21:00)
[2018-11-20] MEDS ORDERED: PANTOPRAZOLE 40 MG TABLET PO SCH (07:30)
[2018-11-20] MEDS ORDERED: CLOPIDOGREL 75 MG TAB PO SCH (09:00)
[2018-11-20] MEDS ORDERED: ASPIRIN 81 MG PO SCH (09:00)
--- NOTE | 2018-11-21 13:00 | CC ---
CARDIAC CATHETERIZATION REPORT Mr. Short has a history of inferior wall myocardial infarction. The patient is status post stent to the RCA. The patient continues to have intermittent chest discomfort in spite of the medical treatment. His stress test was negative for stress-induced ischemia. In view of the recurrent episodes of the chest pain, patient was recommended to have a cardiac catheterization for definitive diagnosis. PROCEDURE: The right groin was prepped and draped in the usual manner and right femoral artery was entered using Seldinger technique using micropuncture needle. Selective coronary angiography was then performed in multiple projections. Patient tolerated the procedure well. Sheath was removed and good hemostasis was achieved with the use of Angio-Seal. Moderate sedation was used. Total sedation time was 18 minutes. SELECTIVE CORONARY ANGIOGRAPHY: 1. Left main coronary artery shows possible limited chronic dissection in its proximal portion. This is unchanged from the previous echocardiogram. Overall flow in the left main and left coronary system is normal. 2. LAD is a normal caliber blood vessel and gives rise to a good size diagonal branch. LAD and its branches are normal. 3. Circumflex coronary artery is normal caliber blood vessel and gives rise to good- sized obtuse marginal branch. Circumflex coronary artery and its branches are normal. 4. Right coronary artery is patent at the site of the prior stent placement and gives rise to good size PLV and PDA branches and they are normal. FINAL IMPRESSION: Right coronary artery is patent at the site of prior angioplasty. 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 It is unchanged from the previous catheterization and there is no compromise of flow. The films were reviewed with Dr. Luis Chaparro and only medical treatment was recommended. We may consider doing a CT angiography as outpatient. The LAD and circumflex coronary arteries are normal. MMODL / IJN: [id number] /
== END 2018-11-19 21:30 | disposition home or self-care (01) ==
LOC: CATHCVL 12:16 → 1SOBS 14:22 → CATHCVL 21:30
PROVIDERS: ATTEND Internal Medicine Cardiovascular Disease
DX: R07.89 Other chest pain (principal); I10 Essential (primary) hypertension; E11.9 Type 2 diabetes mellitus without complications; E78.2 Mixed hyperlipidemia; I25.10 Atherosclerotic heart disease of native coronary artery without angina pectoris; Z95.5 Presence of coronary angioplasty implant and graft; I25.2 Old myocardial infarction; Z72.0 Tobacco use; Z82.49 Family history of ischemic heart disease and other diseases of the circulatory system; Z88.5 Allergy status to narcotic agent; Z79.84 Long term (current) use of oral hypoglycemic drugs; Z79.02 Long term (current) use of antithrombotics/antiplatelets; Z79.82 Long term (current) use of aspirin; Z79.899 Other long term (current) drug therapy
CPT/HCPCS: 93454; C1760; C1894; C1769 ×2; J2001; J3010; Q9967; J2250; 93458

== ENCOUNTER 2019-06-11 22:05 | Emergency (ER) | payer MEDICARE ==
[2019-06-11 22:10] VITALS: RESP 18; TEMP 98.1
--- NOTE | 2019-06-11 23:21 | XR ---
EXAMINATION TYPE: XR KUB DATE OF EXAM: 06/11/2019 COMPARISON: NONE HISTORY: Constipation abdominal pain TECHNIQUE: 2 views upright FINDINGS: There is no sign of intestinal obstruction. There is some retained fecal material throughou t the large bowel. There is multilevel lumbar spine surgery with laminectomy defect in the mid and lo wer lumbar spine. There are no pathologic calcifications over the kidneys. Lung bases are clear. Ther e is no evidence of a mass. IMPRESSION: Constipation. No free air. Large hiatal hernia noted.
[2019-06-11 23:27] LABS: Appearance,Urine Clear (Clear); Bilirubin,Urine Negative (Negative); Blood,Urine Negative (Negative); Color,Urine Yellow; Glucose,Urine (UA) Negative (Negative); Ketones,Urine Negative (Negative); Leukocyte Esterase,Urine Negative (Negative); Nitrite,Urine Negative (Negative); PH, Urine 6.5 (5.0-8.0); Protein,Urine Negative (Negative); Specific Gravity,Urine 1.011 (1.001-1.035); Urobilinogen,Urine <2.0 mg/dL (<2.0)
--- NOTE | 2019-06-12 00:15 | ED ---
General Adult HPI - General Chief complaint: Abdominal Pain Stated complaint: Abd Pain, Constipated Time Seen by Provider: 06/11/19 22:35 Source: patient, RN notes reviewed, old records reviewed Mode of arrival: wheelchair Limitations: no limitations - History of Present Illness Initial comments: 63-year-old male presenting for evaluation of lower abdominal pain. Patient states that he has had lower abdominal pain and suprapubic pain for the past 12 hours. He states he did have a small amount of urine flow approximately 12 hours ago but this was very small amount. He also reports constipation and is unable to have a normal bowel movement several days. Denies fever or chills. Denies upper abdominal pain. No previous history of urinary retention. He does take chronic opiate pain medication for low back pain. - Related Data Home Medications Medication Instructions Recorded Confirmed Omeprazole [PriLOSEC] 20 mg PO AC-BRKFST 12/06/13 11/19/18 oxyCODONE HCL/ACETAMINOPHEN 1 tab PO BID PRN 12/06/13 11/18/18 [Percocet 10-325 mg] Gabapentin [Neurontin] 1,200 mg PO HS 06/29/16 11/19/18 Glimepiride [Amaryl] 2 mg PO HS 06/26/17 11/19/18 ALPRAZolam [Xanax] 1 mg PO BID PRN 08/26/18 11/19/18 tiZANidine [Zanaflex] 2 - 4 mg PO BID PRN 08/26/18 11/19/18 Amitriptyline HCl [Elavil] 50 mg PO BID 09/02/18 11/19/18 oxyCODONE HCL [oxyCODONE HCL (IR)] 20 mg PO QID PRN 09/02/18 11/19/18 Clopidogrel [Plavix] 75 mg PO DAILY 11/18/18 11/19/18 Metoprolol Tartrate [Lopressor] 12.5 mg PO BID 11/18/18 11/19/18 Previous Rx's Medication Instructions Recorded Aspirin 81 mg PO DAILY chew 08/29/18 Atorvastatin [Lipitor] 80 mg PO HS #30 tab 08/29/18 Nitroglycerin Sl Tabs [Nitrostat] 0.4 mg SUBLINGUAL Q5M PRN #25 tab 08/29/18 Polyethylene Glycol 3350 [Miralax] 17 gm PO DAILY #527 gm 06/12/19 Allergies Allergy/AdvReac Type Severity Reaction Status Date / Time morphine AdvReac Severe Confusion Verified 06/11/19 22:10 Review of Systems ROS Statement: Those systems with pertinent positive or pertinent negative responses have been documented in the HPI. ROS Other: All systems not noted in ROS Statement are negative. Past Medical History Past Medical History: Diabetes Mellitus, GERD/Reflux, Myocardial Infarction ([place]) Additional Past Medical History / Comment(s): back pain, cervical degenerative disc disease, neuropathy, seizure post back sugery, spondylosis, post laminectomy syndrome, bilateral numbness and tingling of arms and legs Last Myocardial Infarction Date:: 08/26/18 History of Any Multi-Drug Resistant Organisms: None Reported Past Surgical History: Back Surgery, Heart Catheterization With Stent Additional Past Surgical History / Comment(s): back surgery X4 of lumbar spine, laminectomy and fusion, sleep apnea sx, right ulnar repair. Past Anesthesia/Blood Transfusion Reactions: Postoperative Nausea & Vomiting (PONV) Date of Last Stent Placement:: 08/26/17 Past Psychological History: Anxiety, Depression Smoking Status: Never smoker Past Alcohol Use History: Occasional Past Drug Use History: None Reported - Past Family History Mother Family Medical History: No Reported History Father Family Medical History: Cancer, Coronary Artery Disease (CAD) Additional Family Medical History / Comment(s): prostate. Sister(s) Family Medical History: No Reported History Son(s) Family Medical History: No Reported History Daughter(s) Family Medical History: No Reported History General Exam Limitations: no limitations General appearance: alert, in no apparent distress Head exam: Present: atraumatic, normocephalic Eye exam: Present: normal appearance, PERRL ENT exam: Present: normal exam Neck exam: Present: normal inspection. Absent: tenderness, meningismus Respiratory exam: Present: normal lung sounds bilaterally, respiratory distress Cardiovascular Exam: Present: regular rate, normal rhythm GI/Abdominal exam: Present: soft, distended, tenderness (Suprapubic tenderness to palpation). Absent: guarding, rebound Extremities exam: Present: normal inspection, normal capillary refill. Absent: pedal edema Neurological exam: Present: alert, oriented X3. Absent: motor sensory deficit Psychiatric exam: Present: normal affect, normal mood Skin exam: Present: warm, dry, intact. Absent: cyanosis, diaphoretic Course Vital Signs 06/11/19 22:07 Temperature 98.1 F Pulse Rate 105 H Respiratory 18 Rate Blood Pressure 170/65 O2 Sat by Pulse 94 L Oximetry Medical Decision Making - Medical Decision Making 63-year-old male presenting with lower abdominal pain complaint of constipation and lack of urination. Jack catheter is placed on presentation, obtained is proximally 700 mL of clear urine. This does improve patient's symptoms dramatically although he still feels somewhat constipated. X-rays performed no show constipation with large stool burden. Otherwise well. However just prior to enema administration patient is able to have a large bowel movement and is feeling much better symptoms significantly improved. He will be prescribed MiraLAX and will continue stool softeners at home. He will be given urology follow-up regarding urinary retention. He is discharged with a Jack catheter. Patient feeling better and eager for discharge. - Lab Data Lab Results 06/11/19 Range/Units 22:51 Urine Color Yellow Urine Appearance Clear (Clear) Urine pH 6.5 (5.0-8.0) Ur Specific [place] 1.011 (1.001-1.035) Urine Protein Negative (Negative) Urine Glucose (UA) Negative (Negative) Urine Ketones Negative (Negative) Urine Blood Negative (Negative) Urine Nitrite Negative (Negative) Urine Bilirubin Negative (Negative) Urine Urobilinogen <2.0 (<2.0) mg/dL Ur Leukocyte Esterase Negative (Negative) Disposition Clinical Impression: Constipation, Abdominal pain, Urinary retention Disposition: HOME SELF-CARE Condition: Fair Instructions (If sedation given, give patient instructions): Abdominal Pain (ED), Urinary Retention in Men (ED) Prescriptions: Polyethylene Glycol 3350 [Miralax] 17 gm PO DAILY #527 gm Is patient prescribed a controlled substance at d/c from ED?: No Referrals: Tai Godoy DO [Primary Care Provider] - 1-2 days Kyle Sultana MD [STAFF PHYSICIAN] - 1-2 days Time of Disposition: 00:30
[2019-06-12 01:00] VITALS: BP 140/72; PULSE 90
== END 2019-06-12 00:56 | disposition home or self-care (01) ==
LOC: EC 22:05
DX: K59.00 Constipation, unspecified (principal); R33.9 Retention of urine, unspecified; M54.5 Low back pain; E11.40 Type 2 diabetes mellitus with diabetic neuropathy, unspecified; K21.9 Gastro-esophageal reflux disease without esophagitis; I25.2 Old myocardial infarction; F32.9 Major depressive disorder, single episode, unspecified; F41.9 Anxiety disorder, unspecified; Z88.5 Allergy status to narcotic agent; Z79.02 Long term (current) use of antithrombotics/antiplatelets; Z79.84 Long term (current) use of oral hypoglycemic drugs; Z79.891 Long term (current) use of opiate analgesic; Z79.899 Other long term (current) drug therapy; Z98.1 Arthrodesis status; Z95.5 Presence of coronary angioplasty implant and graft; Z80.42 Family history of malignant neoplasm of prostate
CPT/HCPCS: 51702; 74018; 81003; 99284

== ENCOUNTER → 2020-11-24 | Outpatient (CLI) | payer MEDICARE ==
[2020-11-25 11:15] LABS: African American GFR (CKD) 67.3 (60.0-200.0); Anion Gap 19.8 mmol/L (4.00-12.00); BUN/Creat Ratio 17.69 Ratio (12.00-20.00); Calcium 9.4 mg/dL (8.7-10.3); Carbon Dioxide 17.2 mmol/L (21.6-31.8); Non-African American GFR(CKD) 58.1 (60.0-200.0); Potassium 4.3 mmol/L (3.5-5.5)
== END | disposition home or self-care (01) ==
LOC: LABWHC1 15:50
PROVIDERS: ATTEND Internal Medicine Interventional Cardiology
DX: I10 Essential (primary) hypertension (principal); I25.10 Atherosclerotic heart disease of native coronary artery without angina pectoris
CPT/HCPCS: 36415; 80048

== ENCOUNTER 2021-10-31 12:13 | Inpatient (IN) | payer MEDICARE ==
--- NOTE | 2021-10-31 13:29 | ED ---
Extremity Problem HPI - General Chief complaint: Extremity Problem,Nontraumatic Stated complaint: infection in foot Time Seen by Provider: 10/31/21 13:01 Source: patient, RN notes reviewed Mode of arrival: ambulatory Limitations: no limitations - History of Present Illness Initial comments: This a 66-year-old male presents emergency Department chief complaint of right heel infection. He's been dealing with this for several weeks started a small opening of his right heel of the callused skin on the heel by states that it seems to be worsening surrounding erythema, mild foul order, mild drainage. Patient is a known diabetic with peripheral neuropathy states he has no associated feeling of his foot. Patient has been on antibiotics including Avelo x area and patient is scheduled see the wound center but is still pending up from his appointment. He is also received 3 injections of antibiotics recently - Related Data Home Medications Medication Instructions Recorded Confirmed Omeprazole [PriLOSEC] 20 mg PO HS 12/06/13 10/31/21 Gabapentin [Neurontin] 1,200 mg PO HS 06/29/16 10/31/21 Glimepiride [Amaryl] 2 mg PO HS 06/26/17 10/31/21 ALPRAZolam [Xanax] 1 mg PO DAILY PRN 08/26/18 10/31/21 tiZANidine [Zanaflex] 2 - 4 mg PO HS 08/26/18 10/31/21 oxyCODONE HCL [oxyCODONE HCL (IR)] 20 mg PO TID PRN 09/02/18 10/31/21 Clopidogrel [Plavix] 75 mg PO HS 11/18/18 10/31/21 Amitriptyline HCl [Elavil] 100 mg PO HS 10/31/21 10/31/21 Levofloxacin [Levaquin] 500 mg PO HS 10/31/21 10/31/21 hydroCHLOROthiazide [Hydrodiuril] 50 mg PO DAILY 10/31/21 10/31/21 metFORMIN HCL 500 mg PO HS 10/31/21 10/31/21 Previous Rx's Medication Instructions Recorded Atorvastatin [Lipitor] 80 mg PO HS #30 tab 08/29/18 Nitroglycerin Sl Tabs [Nitrostat] 0.4 mg SUBLINGUAL Q5M PRN #25 tab 08/29/18 Allergies Allergy/AdvReac Type Severity Reaction Status Date / Time Sulfa (Sulfonamide Allergy Rash/Hives Verified 10/31/21 13:35 Antibiotics) morphine AdvReac Severe Confusion Verified 10/31/21 13:35 Review of Systems ROS Statement: Those systems with pertinent positive or pertinent negative responses have been documented in the HPI. ROS Other: All systems not noted in ROS Statement are negative. Past Medical History Past Medical History: Diabetes Mellitus, GERD/Reflux, Myocardial Infarction ([place]) Additional Past Medical History / Comment(s): back pain, cervical degenerative disc disease, neuropathy, seizure post back sugery, spondylosis, post laminectomy syndrome, bilateral numbness and tingling of arms and legs Last Myocardial Infarction Date:: 08/26/18 History of Any Multi-Drug Resistant Organisms: None Reported Past Surgical History: Back Surgery, Heart Catheterization With Stent Additional Past Surgical History / Comment(s): back surgery X4 of lumbar spine, laminectomy and fusion, sleep apnea sx, right ulnar repair. Past Anesthesia/Blood Transfusion Reactions: Postoperative Nausea & Vomiting (PONV) Date of Last Stent Placement:: 08/26/17 Past Psychological History: Anxiety, Depression Smoking Status: Former smoker Past Alcohol Use History: Rare Past Drug Use History: None Reported - Past Family History Mother Family Medical History: No Reported History Father Family Medical History: Cancer, Coronary Artery Disease (CAD) Additional Family Medical History / Comment(s): prostate. Sister(s) Family Medical History: No Reported History Son(s) Family Medical History: No Reported History Daughter(s) Family Medical History: No Reported History General Exam Limitations: no limitations General appearance: alert, in no apparent distress Head exam: Present: atraumatic, normocephalic, normal inspection Eye exam: Present: normal appearance, PERRL, EOMI. Absent: scleral icterus, conjunctival injection, periorbital swelling Neck exam: Present: normal inspection. Absent: tenderness, meningismus, lymphadenopathy Respiratory exam: Present: normal lung sounds bilaterally. Absent: respiratory distress, wheezes, rales, rhonchi, stridor Cardiovascular Exam: Present: regular rate, normal rhythm, normal heart sounds. Absent: systolic murmur, diastolic murmur, rubs, gallop, clicks GI/Abdominal exam: Present: soft, normal bowel sounds. Absent: distended, tenderness, guarding, rebound, rigid Extremities exam: Present: other (Right heel there is a large open callused area with deep pocket infection, surrounding erythema there are multiple other wounds, swelling noted to the foot) Skin exam: Present: warm, dry, intact, normal color. Absent: rash Course Vital Signs 10/31/21 12:37 Temperature 97.6 F Pulse Rate 96 Respiratory 18 Rate Blood Pressure 133/83 O2 Sat by Pulse 98 Oximetry Medical Decision Making - Medical Decision Making 66-year-old presented for diabetic ulceration, foot wound. I do not see any evidence of osteomyelitis though he sat outpatient treatment after multiple IM injections of antibiotics and oral antibiotics. Patient be admitted for consult to vascular and wound care. - Lab Data Result diagrams: 10/31/21 13:52 10/31/21 13:52 Lab Results 10/31/21 10/31/21 10/31/21 Range/Units 13:52 13:52 13:52 WBC 10.0 (3.8-10.6) k/uL RBC 4.90 (4.30-5.90) m/uL Hgb 15.3 (13.0-17.5) gm/dL Hct 44.8 (39.0-53.0) % MCV 91.3 (80.0-100.0) fL MCH 31.2 (25.0-35.0) pg MCHC 34.2 (31.0-37.0) g/dL RDW 13.9 (11.5-15.5) % Plt Count 384 (150-450) k/uL MPV 7.1 Neutrophils % 70 % Lymphocytes % 19 % Monocytes % 7 % Eosinophils % 2 % Basophils % 1 % Neutrophils # 7.0 (1.3-7.7) k/uL Lymphocytes # 1.9 (1.0-4.8) k/uL Monocytes # 0.7 (0-1.0) k/uL Eosinophils # 0.2 (0-0.7) k/uL Basophils # 0.1 (0-0.2) k/uL Sodium 136 L (137-145) mmol/L Potassium 3.9 (3.5-5.1) mmol/L Chloride 93 L (98-107) mmol/L Carbon Dioxide 33 H (22-30) mmol/L Anion Gap 10 mmol/L BUN 22 H (9-20) mg/dL Creatinine 1.08 (0.66-1.25) mg/dL Est GFR (CKD-EPI)AfAm 83 (>60 ml/min/1.73 sqM) Est GFR (CKD-EPI)NonAf 72 (>60 ml/min/1.73 sqM) Glucose 120 H (74-99) mg/dL Plasma Lactic Acid Kevin 1.7 (0.7-2.0) mmol/L Calcium 9.3 (8.4-10.2) mg/dL Total Bilirubin 0.8 (0.2-1.3) mg/dL AST 85 H (17-59) U/L ALT 119 H (4-49) U/L Alkaline Phosphatase 150 H (38-126) U/L C-Reactive Protein 5.6 H (<1.0) mg/dL Total Protein 8.6 H (6.3-8.2) g/dL Albumin 4.2 (3.5-5.0) g/dL Disposition Clinical Impression: Diabetic foot ulcer, Cellulitis of right foot Disposition: ADMITTED IP TO THIS [facility] Condition: Fair Referrals: Tai Godoy DO [Primary Care Provider] - 1-2 days
--- NOTE | 2021-10-31 14:08 | XR ---
Right foot HISTORY: Swelling, infection 3 views of the right foot on 5 images There is marked soft tissue swelling over the forefoot. Plantar calcaneal spur is noted. There is no evident fracture or dislocation. Suspect some lucencies present within the soft tissues over the dors um of the foot, not felt likely to be gas density. No periostitis to suggest osteomyelitis. IMPRESSION: Soft tissue swelling, correlate for cellulitis, alternate imaging may be of benefit
[2021-10-31 14:28] LABS: Basophils # (A) 0.1 k/uL (0-0.2); Basophils % (A) 1 %; Eosinophils # (A) 0.2 k/uL (0-0.7); Eosinophils % (A) 2 %; HCT 44.8 % (39.0-53.0); HGB 15.3 gm/dL (13.0-17.5); Lymphocytes # (A) 1.9 k/uL (1.0-4.8); Lymphocytes % (A) 19 %; MCH 31.2 pg (25.0-35.0); MCHC 34.2 g/dL (31.0-37.0); MCV 91.3 fL (80.0-100.0); Mean Platelet Volume 7.1; Monocytes # (A) 0.7 k/uL (0-1.0); Monocytes % (A) 7 %; Neutrophils % (A) 70 %; Platelet Count 384 k/uL (150-450); RDW 13.9 % (11.5-15.5)
[2021-10-31 14:47] LABS: Albumin 4.2 g/dL (3.5-5.0); C Reactive Protein 5.6 mg/dL (<1.0); Calcium 9.3 mg/dL (8.4-10.2); Potassium 3.9 mmol/L (3.5-5.1); Total Bilirubin 0.8 mg/dL (0.2-1.3); Total Protein 8.6 g/dL (6.3-8.2)
[2021-10-31] MEDS ORDERED: ONDANSETRON 4 MG/2 ML VIAL IVP PRN (14:51)
[2021-10-31] MEDS ORDERED: NALOXONE 0.4 MG/ML 1 ML VIAL IV PRN (14:51)
[2021-10-31] MEDS ORDERED: ACETAMINOPHEN TAB 325 MG TAB PO PRN (14:51)
[2021-10-31] MEDS ORDERED: VANCOMYCIN IV PER PHARMACY 1 EACH MISC MISCELLANE PRN (14:53)
[2021-10-31] MEDS ORDERED: ALPRAZolam 1 MG TAB PO PRN (14:54)
[2021-10-31] MEDS ORDERED: VANCOMYCIN 2,000 MG in SODIUM CHLORIDE 0.9% 500 ML 500 ML IVPB STA (15:01)
[2021-10-31] MEDS: PIPERACILLIN-TAZOBACTAM 3.375 GM in SODIUM CHLORIDE 0.9% 100 ML IVPB SCH (18:14)
--- NOTE | 2021-10-31 19:41 | US ---
EXAMINATION TYPE: US venous doppler duplex LE RT DATE OF EXAM: 10/31/2021 7:22 PM COMPARISON: NONE CLINICAL HISTORY: dvt rule out. Rule out DVT, swelling SIDE PERFORMED: Right TECHNIQUE: The lower extremity deep venous system is examined utilizing real time linear array sonog melanie with graded compression, doppler sonography and color-flow sonography. VESSELS IMAGED: Common Femoral Vein Deep Femoral Vein Greater Saphenous Vein * Femoral Vein Popliteal Vein Small Saphenous Vein * Proximal Calf Veins (* superficial vessels) Grayscale, color doppler, spectral doppler imaging performed of the deep veins of the lower extremiti es. There is normal flow, compressibility, vascular waveforms. Right Leg: Negative for DVT Left Leg: Groin scanned per protocol, no evidence of DVT in the CFV or GSV IMPRESSION: No evidence of DVT in the right lower extremity or left common femoral vein or left greater saphenous vein.
[2021-10-31 20:34] LABS: Glucose,Whole Blood 219 mg/dL (75-99)
[2021-10-31] MEDS: INSULIN ASPART (NovoLOG) 100 UNIT/ML VIAL SQ SCH (20:40)
[2021-10-31] MEDS: PANTOPRAZOLE 40 MG TABLET PO SCH (20:40)
[2021-10-31] MEDS: AMITRIPTYLINE HCL 50 MG TAB PO SCH (20:40)
[2021-10-31] MEDS: ATORVASTATIN 80 MG TAB PO SCH (20:40)
[2021-10-31] MEDS: GABAPENTIN 400 MG CAP PO SCH (20:40)
[2021-10-31] MEDS: CLOPIDOGREL 75 MG TAB PO SCH (20:40)
[2021-10-31] MEDS: tiZANidine 4 MG TAB PO SCH (20:40)
[2021-10-31] MEDS: GLIMEPIRIDE 2 MG TAB PO SCH (20:40)
[2021-10-31] MEDS: metFORMIN 500 MG TAB PO SCH (20:40)
[2021-10-31] MEDS ORDERED: GABAPENTIN 300 MG CAP PO SCH (21:00)
[2021-11-01] MEDS: PIPERACILLIN-TAZOBACTAM 3.375 GM in SODIUM CHLORIDE 0.9% 100 ML IVPB SCH ×3 (01:05→16:31)
[2021-11-01] MEDS: VANCOMYCIN 2,000 MG in SODIUM CHLORIDE 0.9% 500 ML 500 ML IVPB SCH ×2 (04:16→16:31)
[2021-11-01 06:48] LABS: Glucose,Whole Blood 119 mg/dL (75-99)
[2021-11-01] MEDS: INSULIN ASPART (NovoLOG) 100 UNIT/ML VIAL SQ SCH ×4 (07:33→21:37)
--- NOTE | 2021-11-01 07:48 | P.HPIM ---
History of Present Illness H&P Date: 10/31/21 HISTORY OF PRESENT ILLNESS 66-year-old morbidly obese one of Dr. Godoy patient with multiple medical problem is known to have history of CAD post NE in the past, history of type 2 diabetes, history of hypertension hyperlipidemia and obstructive sleep apnea who had mild COPD as well with developed to have small ulcer on the heel area for over 3 weeks ago, was seen his primary care physician and start on antibiotic with Avelox initially and then request patient to come to the office for Rocephin injection which patient had 3 of them this last week. The area become much worse since then open and widely spreading with infection spreading to a few inches above the ankle area the area become more symptomatic with worsening cellulitis and open sore on the heel area. Patient had multiple problems in the past had seen at the wound clinic and had both side treated in the past. This time with failure to outpatient treatment patient was instructed to come to the hospital where was seen and evaluated culture was done at the time patient was started on vancomycin and Zosyn will be admitted to the hospital will be seen infectious disease and wound care. Pending of the culture patient also will be seen vascular to see if part of the problem is PAD. Addition to with one of the right side patient had small area on the left medial aspect of the lower part of the leg looks like small tiny ulcerated but had healed compared to before. Review of Systems CONSTITUTIONAL: Morbidly obese no acute respiratory distress. EYES: No icterus sclerae, no conjunctivitis. EARS, NOSE, MOUTH, THROAT, and FACE: No sore throat, lymphadenopathy, carotid bruits or deformity. RESPIRATORY: Positive shortness of breath and dyspnea CARDIOVASCULAR: Positive chest pain or angina and palpitation GASTROINTESTINAL: No Abd pain, Nausea or vomiting, no Diarrhea or constipation, No GI Bleed, no distention or masses. GENITOURINARY: Negative for Hematuria or UTI, no kidney stones. INTEGUMENT/BREAST: Generalized arthritis with muscle and joint pain with chronic lower back pain with open sore on the right heel area along with cellulitis in the right leg and small folliculitis on the left side. HEMATOLOGIC/LYMPHATIC: Negative for bleed or purpura. MUSCULOSKELTAL: Negative for Myalgia or arthralgia. NEURLOGICAL: No LOC, Sz or syncope, blurred vision dizziness or abnormality.. BEHAVIORAL/PSYCH: Negative. SOCIAL HISTORY He quit smoking 20 years ago, used to smoker for 20 years, drinks alcohol socially, live with his has been retired for years. FAMILY HISTORY His mother from CAD, father from prostate cancer complication, patient had 1 siblings living and well and 2 children with no major medical problem. Physical Exam General Appearance: Alert, cooperative, no distress, appears stated age. Morbidly obese Neck HEENT: Supple, no lymphadenopathy, no thyroid enlargement, no carotid bruits. Lungs: Decreased breath sound bilaterally fine rhonchi Chest Wall: Chest wall normal expansion with deep inspiration no tenderness and no deformity was found on exam, no costochondral pain or discomfort. Heart: Regular rate and rhythm, S1, S2 normal, no murmur, rub or gallop. Back: Symmetric, no curvature, ROM normal, no CVA tenderness. Abdomen: Soft, non-tender, bowel sounds active all four quadrants, no masses, no organomegaly. Extremities: Decreased pulses bilaterally worse on the right than the left side with open sore area on the heel measure one and half time half an inch with depth of 50 for an inch. There is cellulitis spreading all the way to about 3 inches above the ankle area was marked at the time. Left side had one area of folliculitis looks like was an ulcerated area but had a close on the medial aspect of the leg above the ankle area. Patient still have 1+ edema at this point. Pulses: Significantly decreased in both side. Skin: Skin color, texture, tugor normal, no rashes or lesions. Neurologic: Alert oriented x3 cranial nerves II through XII intact, no motor deficit, no abnormal balance or gait. ASSESSMENT AND PLAN 1. Severe nonhealing ulcer on the right heel area with diabetic foot and cellulitis: Patient was started on vancomycin along with Zosyn and admitted to the hospital seen wound service along with infectious disease also because of the nonhealing area on the current episode patient be seen vascular. 2 severe nonhealing with failure to outpatient treatment cellulitis and diabetic person: Patient will be on IV antibiotic for now awaiting for culture for his final result. 3 type 2 diabetes: Has been on metformin and glyburide resume medication will add Accu-Chek sliding scales coverage per [employer]. 4 CAD post NE in the past has been seeing cardiology still on atorvastatin not clear why patient is not and Nnadmi or beta jean at this point. 5 chronic pain syndrome: Patient has been on gabapentin, Elavil along with OxyIR with Zanaflex per his primary care physician. 6 abnormal liver function test: Not clear etiology most likely Renteria watch symptoms closely repeat liver function tests with testing. 7 hyperlipidemia: Continue patient on atorvastatin. 8 chronic neuropathy: Continue gabapentin. 9 hypertension: Patient was on losartan and metoprolol the past has been off at this point watch the blood pressure patient probably will be introduced back to at least are. 10 severe GERD: Has been on omeprazole 20 mg daily. 11 history of obstructive sleep apnea: Patient is not using any CPAP at this point. 12 severe PAD: Patient be seen vascular testing to be done if patient had any element of severe PAD might require intervention. CODE STATUS: Full code Patient will be admitted to the hospital for a minimum of 2 night stay. Past Medical History Past Medical History: Coronary Artery Disease (CAD), Diabetes Mellitus, GERD/Reflux, Hyperlipidemia, Hypertension, Liver Disease, Myocardial Infarction ([place]), Seizure Disorder, Vascular Disorder Additional Past Medical History / Comment(s): NIDDM type II, neuropathy bilateral arms/legs/feet, past gastric ulcer, hiatal hernia, seizure once following back surgery thought d/t medications, chronic back/cervical pain, post laminectomy syndrome, kidney stones, fatty liver, venous stasis Last Myocardial Infarction Date:: 08/26/18 History of Any Multi-Drug Resistant Organisms: None Reported Past Surgical History: Back Surgery, Heart Catheterization, Heart Catheteriz ation With Stent, Orthopedic Surgery Additional Past Surgical History / Comment(s): Back surgeries/laminectomies and fusions, R ulnar nerbe release, R carpal tunnel release, UVPPP, EGD, colonoscopy. Past Anesthesia/Blood Transfusion Reactions: Postoperative Nausea & Vomiting (PONV) Date of Last Stent Placement:: 08/26/17 Past Psychological History: Anxiety, Depression Additional Psychological History / Comment(s): Pt resides with his spouse. He uses a cane occasionally. He drives. Smoking Status: Former smoker Past Alcohol Use History: Rare Additional Past Alcohol Use History / Comment(s): Pt started smoking in 1972 and quit in 1987 Past Drug Use History: None Reported Additional Drug Use History / Comment(s): rarely drinks alcohol, social - Past Family History Mother Family Medical History: Myocardial Infarction ([place]), Musculoskeletal Disorder Additional Family Medical History / Comment(s): Post polio syndrome Father Family Medical History: Cancer, Coronary Artery Disease (CAD) Additional Family Medical History / Comment(s): prostate. Sister(s) Family Medical History: No Reported History Son(s) Family Medical History: No Reported History Daughter(s) Family Medical History: No Reported History Medications and Allergies Home Medications Medication Instructions Recorded Confirmed Type Omeprazole [PriLOSEC] 20 mg PO HS 12/06/13 10/31/21 History Gabapentin [Neurontin] 1,200 mg PO HS 06/29/16 10/31/21 History Glimepiride [Amaryl] 2 mg PO HS 06/26/17 10/31/21 History ALPRAZolam [Xanax] 1 mg PO DAILY PRN 08/26/18 10/31/21 History tiZANidine [Zanaflex] 2 - 4 mg PO HS 08/26/18 10/31/21 History Atorvastatin [Lipitor] 80 mg PO HS #30 tab 08/29/18 10/31/21 Rx Nitroglycerin Sl Tabs [Nitrostat] 0.4 mg SUBLINGUAL Q5M PRN #25 tab 08/29/18 10/31/21 Rx oxyCODONE HCL [oxyCODONE HCL (IR)] 20 mg PO TID PRN 09/02/18 10/31/21 History Clopidogrel [Plavix] 75 mg PO HS 11/18/18 10/31/21 History Amitriptyline HCl [Elavil] 100 mg PO HS 10/31/21 10/31/21 History Levofloxacin [Levaquin] 500 mg PO HS 10/31/21 10/31/21 History hydroCHLOROthiazide [Hydrodiuril] 50 mg PO DAILY 10/31/21 10/31/21 History metFORMIN HCL 500 mg PO HS 10/31/21 10/31/21 History Allergies Allergy/AdvReac Type Severity Reaction Status Date / Time Sulfa (Sulfonamide Allergy Rash/Hives Verified 10/31/21 13:35 Antibiotics) morphine AdvReac Severe Confusion Verified 10/31/21 13:35 Physical Exam Vitals: Vital Signs Temp Pulse Resp BP Pulse Ox 10/31/21 17:34 102 H 16 119/83 97 10/31/21 12:37 97.6 F 96 18 133/83 98 Intake and Output 10/31/21 10/31/21 10/31/21 06:59 14:59 22:59 Other: Weight 133.81 kg 133.81 kg Results CBC & Chem 7: 10/31/21 13:52 10/31/21 13:52 Labs: Abnormal Lab Results - Last 24 Hours (Table) 10/31/21 Range/Units 13:52 Sodium 136 L (137-145) mmol/L Chloride 93 L (98-107) mmol/L Carbon Dioxide 33 H (22-30) mmol/L BUN 22 H (9-20) mg/dL Glucose 120 H (74-99) mg/dL AST 85 H (17-59) U/L ALT 119 H (4-49) U/L Alkaline Phosphatase 150 H (38-126) U/L C-Reactive Protein 5.6 H (<1.0) mg/dL Total Protein 8.6 H (6.3-8.2) g/dL Thrombosis Risk Factor Assmnt - Choose All That Apply Any of the Below Risk Factors Present?: Yes Each Factor Represents 1 point: Obesity (BMI >25) Other Risk Factors: Yes Each Risk Factor Represents 2 Points: Age 61-74 years Other congenital or acquired thrombophilia - If yes, enter type in comment: No Thrombosis Risk Factor Assessment Total Risk Factor Score: 3 Thrombosis Risk Factor Assessment Level: Moderate Risk
[2021-11-01] MEDS ORDERED: LOSARTAN 50 MG TAB PO SCH (09:45)
[2021-11-01 11:13] LABS: Glucose,Whole Blood 150 mg/dL (75-99)
[2021-11-01] MEDS ORDERED: SILVER NITRATE APPLICATOR 1 EACH STICK..EA. TOPICAL STA (11:55)
--- NOTE | 2021-11-01 12:36 | P.PN ---
Subjective Progress Note Date: 11/01/21 HISTORY OF PRESENT ILLNESS 66-year-old morbidly obese one of Dr. Godoy patient with multiple medical problem is known to have history of CAD post MS in the past, history of type 2 diabetes, history of hypertension hyperlipidemia and obstructive sleep apnea who had mild COPD as well with developed to have small ulcer on the heel area for over 3 weeks ago, was seen his primary care physician and start on antibiotic with Avelox initially and then request patient to come to the office for Rocephin injection which patient had 3 of them this last week. The area become much worse since then open and widely spreading with infection spreading to a few inches above the ankle area the area become more symptomatic with worsening cellulitis and open sore on the heel area. Patient had multiple problems in the past had seen at the wound clinic and had both side treated in the past. This time with failure to outpatient treatment patient was instructed to come to the hospital where was seen and evaluated culture was done at the time patient was started on vancomycin and Zosyn will be admitted to the hospital will be seen infectious disease and wound care. Pending of the culture patient also will be seen vascular to see if part of the problem is PAD. Addition to with one of the right side patient had small area on the left medial aspect of the lower part of the leg looks like small tiny ulcerated but had healed compared to before. 4/: Ultrasound of the right lower extremity negative for DVT. Arterial ultrasound has been obtained and results are pending. Patient has been seen by vascular surgery with plan for I&D tomorrow. There is a consult in place for the wound healing Center. Dr. villagran is following patient continued on vancomycin and Zosyn. Patient has been afebrile, heart rate 80, blood pressure 134/83, pulse ox 94% on room air. Capillary blood glucose running between 119 and 219. A1c, sed rate and CRP ordered. Patient's is at bedside and all questions have been answered. REVIEW OF SYSTEMS CONSTITUTIONAL: Morbidly obese no acute respiratory distress. EYES: No icterus sclerae, no conjunctivitis. EARS, NOSE, MOUTH, THROAT, and FACE: No sore throat, lymphadenopathy, carotid bruits or deformity. RESPIRATORY: Positive shortness of breath and dyspnea CARDIOVASCULAR: No chest pain or angina and palpitation GASTROINTESTINAL: No Abd pain, Nausea or vomiting, no Diarrhea or constipation, No GI Bleed, no distention or masses. GENITOURINARY: Negative for Hematuria or UTI, no kidney stones. INTEGUMENT/BREAST: Generalized arthritis with muscle and joint pain with chronic lower back pain with open sore on the right heel area along with cellulitis in the right leg and small folliculitis on the left side. HEMATOLOGIC/LYMPHATIC: Negative for bleed or purpura. MUSCULOSKELTAL: Negative for Myalgia or arthralgia. NEURLOGICAL: No LOC, Sz or syncope, blurred vision dizziness or abnormality.. BEHAVIORAL/PSYCH: Negative. PHYSICAL EXAMINATION General Appearance: Alert, cooperative, no distress, appears stated age. Morbidly obese Neck HEENT: Supple, no lymphadenopathy, no thyroid enlargement, no carotid bruits. Lungs: Decreased breath sound bilaterally fine rhonchi Chest Wall: Chest wall normal expansion with deep inspiration no tenderness and no deformity was found on exam, no costochondral pain or discomfort. Heart: Regular rate and rhythm, S1, S2 normal, no murmur, rub or gallop. Back: Symmetric, no curvature, ROM normal, no CVA tenderness. Abdomen: Soft, non-tender, bowel sounds active all four quadrants, no masses, no organomegaly. Extremities: Decreased pulses bilaterally worse on the right than the left side with open sore area on the heel measure one and half time half an inch with depth of 0.5 inch. There is cellulitis spreading all the way to about 3 inches above the ankle area was marked at the time. Left side had one area of folliculitis looks like was an ulcerated area but had a close on the medial aspect of the leg above the ankle area. Patient still have 1+ edema at this point. Pulses: Significantly decreased in both side. Skin: Skin color, texture, tugor normal, no rashes or lesions. Neurologic: Alert oriented x3 cranial nerves II through XII intact, no motor deficit, no abnormal balance or gait. ASSESSMENT AND PLAN 1. Severe nonhealing diabetic ulcer on the right heel. Continue patient on Zosyn and vancomycin, consult with vascular surgery and infectious disease appreciated. Arterial ultrasound report is pending. He is scheduled for I&D tomorrow. Sed rate and CRP, A1c ordered. 2 severe nonhealing with failure to outpatient treatment cellulitis and diabetic person: Patient will be on IV antibiotic for now awaiting for culture for his final result. 3 type 2 diabetes: Has been on metformin and glyburide resume medication will add Accu-Chek sliding scales coverage per [employer]. 4 CAD post MS in the past has been seeing cardiology still on atorvastatin not clear why patient is not and Nnamdi or beta jean at this point. 5 chronic pain syndrome: Patient has been on gabapentin, Elavil along with OxyIR with Zanaflex per his primary care physician. 6 abnormal liver function test: Not clear etiology most likely Renteria watch symptoms closely repeat liver function tests with testing. 7 hyperlipidemia: Continue patient on atorvastatin. 8 chronic diabetic neuropathy: Continue gabapentin. 9 hypertension: Patient was on losartan and metoprolol the past has been off at this point watch the blood pressure patient probably will be introduced back to at least are. 10 severe GERD: Has been on omeprazole 20 mg daily. 11 history of obstructive sleep apnea: Patient is not using any CPAP at this point. 12 severe PAD: Patient be seen vascular testing to be done if patient had any element of severe PAD might require intervention. CODE STATUS: Full code DISCHARGE PLAN Home Impression and plan of care have been directed as dictated by the signing physician. Tiffanie Moore nurse practitioner acting as scribe for signing physician. Objective - Vital Signs Vital signs: Vital Signs Temp 97.3 F L 11/01/21 07:08 Pulse 80 11/01/21 07:08 Resp 18 11/01/21 07:08 BP 134/83 11/01/21 07:08 Pulse Ox 94 L 11/01/21 07:08 Intake & Output 10/31/21 11/01/21 11/01/21 18:59 06:59 18:59 Weight 133.81 kg Other: # Voids 2 - Labs CBC & Chem 7: 10/31/21 13:52 10/31/21 13:52 Labs: Abnormal Lab Results - Last 24 Hours (Table) 10/31/21 10/31/21 11/01/21 Range/Units 13:52 20:22 06:47 Sodium 136 L (137-145) mmol/L Chloride 93 L (98-107) mmol/L Carbon Dioxide 33 H (22-30) mmol/L BUN 22 H (9-20) mg/dL Glucose 120 H (74-99) mg/dL POC Glucose (mg/dL) 219 H 119 H (75-99) mg/dL AST 85 H (17-59) U/L ALT 119 H (4-49) U/L Alkaline Phosphatase 150 H (38-126) U/L C-Reactive Protein 5.6 H (<1.0) mg/dL Total Protein 8.6 H (6.3-8.2) g/dL
--- NOTE | 2021-11-01 12:43 | P.CONS ---
History of Present Illness - Reason for Consult Consult date: 11/01/21 wound care - History of Present Illness This is a 66-year-old patient been seen on 4 S. for a nonhealing ulceration to the left ear. Patient has a left stage III diabetic foot pressure ulcer. Patient has history of diabetes. Patient was previously being seen by Dr. Crawford the otr driver for wound care to the left heel. The ulceration healed at that time. However proximal a few weeks ago the ulceration reopened resulting in a nonhealing diabetic foot ulcer with muscle involvement without necrosis. There is tunneling noted at 2 cm. Significant amount of nonviable tissue including Slough and necrotic tissue. Ulceration measures approximately 1.5 x 1.5 x 2 cm. Unable to palpate bone at this time. Patient underwent a bedside debridement with vascular surgery. Patient's past medical history significant for diabetes. Review Of Systems: Constitutional: No fever, no chills, no night sweats. No weight change. No weakness, fatigue or lethargy. No daytime sleepiness. Integumentary:reports wounds, no lesions. No rash or pruritus. No unusual bruising. No change in hair or nails. Physical exam: General Appearance: Alert, cooperative, no distress, appears stated age. Skin: See HPI all other Skin color, texture, tugor normal, no rashes or lesions. Neurologic: Alert oriented x3 Assessment: 1. Stage II pressure ulcer left heel 2. Diabetic foot ulcer Plan: 1. Apply Santyl, saline moistened gauze, dry gauze were rolled gauze secured with paper tape. Change daily. Utilize a walker for nonweightbearing to the left calcaneus. He would benefit from continued advance wound care and outpatient setting patient is agreeable. Thank you for the consultation any questions please contact the wound care center DNP note has been reviewed and discussed with Dr. Gardner and the impression and plan of care has been directed as dictated. Past Medical History Past Medical History: Coronary Artery Disease (CAD), Diabetes Mellitus, GERD/Reflux, Hyperlipidemia, Hypertension, Liver Disease, Myocardial Infarction (OR), Seizure Disorder, Vascular Disorder Additional Past Medical History / Comment(s): NIDDM type II, neuropathy bilateral arms/legs/feet, past gastric ulcer, hiatal hernia, seizure once following back surgery thought d/t medications, chronic back/cervical pain, post laminectomy syndrome, kidney stones, fatty liver, venous stasis Last Myocardial Infarction Date:: 08/26/18 History of Any Multi-Drug Resistant Organisms: None Reported Past Surgical History: Back Surgery, Heart Catheterization, Heart Catheterization With Stent, Orthopedic Surgery Additional Past Surgical History / Comment(s): Back surgeries/laminectomies and fusions, R ulnar nerbe release, R carpal tunnel release, UVPPP, EGD, colonoscopy. Past Anesthesia/Blood Transfusion Reactions: Postoperative Nausea & Vomiting (PONV) Date of Last Stent Placement:: 08/26/17 Past Psychological History: Anxiety, Depression Additional Psychological History / Comment(s): Pt resides with his spouse. He uses a cane occasionally. He drives. Smoking Status: Former smoker Past Alcohol Use History: Rare Additional Past Alcohol Use History / Comment(s): Pt started smoking in 1972 and quit in 1987 Past Drug Use History: None Reported Additional Drug Use History / Comment(s): rarely drinks alcohol, social - Past Family History Mother Family Medical History: Myocardial Infarction (OR), Musculoskeletal Disorder Additional Family Medical History / Comment(s): Post polio syndrome Father Family Medical History: Cancer, Coronary Artery Disease (CAD) Additional Family Medical History / Comment(s): prostate. Sister(s) Family Medical History: No Reported History Son(s) Family Medical History: No Reported History Daughter(s) Family Medical History: No Reported History Medications and Allergies Home Medications Medication Instructions Recorded Confirmed Type Omeprazole [PriLOSEC] 20 mg PO HS 12/06/13 10/31/21 History Gabapentin [Neurontin] 1,200 mg PO HS 06/29/16 10/31/21 History Glimepiride [Amaryl] 2 mg PO HS 06/26/17 10/31/21 History ALPRAZolam [Xanax] 1 mg PO DAILY PRN 08/26/18 10/31/21 History tiZANidine [Zanaflex] 2 - 4 mg PO HS 08/26/18 10/31/21 History Atorvastatin [Lipitor] 80 mg PO HS #30 tab 08/29/18 10/31/21 Rx Nitroglycerin Sl Tabs [Nitrostat] 0.4 mg SUBLINGUAL Q5M PRN #25 tab 08/29/18 10/31/21 Rx oxyCODONE HCL [oxyCODONE HCL (IR)] 20 mg PO TID PRN 09/02/18 10/31/21 History Clopidogrel [Plavix] 75 mg PO HS 11/18/18 10/31/21 History Amitriptyline HCl [Elavil] 100 mg PO HS 10/31/21 10/31/21 History Levofloxacin [Levaquin] 500 mg PO HS 10/31/21 10/31/21 History hydroCHLOROthiazide [Hydrodiuril] 50 mg PO DAILY 10/31/21 10/31/21 History metFORMIN HCL 500 mg PO HS 10/31/21 10/31/21 History Allergies Allergy/AdvReac Type Severity Reaction Status Date / Time Sulfa (Sulfonamide Allergy Rash/Hives Verified 10/31/21 13:35 Antibiotics) morphine AdvReac Severe Confusion Verified 10/31/21 13:35 Physical Exam Vitals: Vital Signs Temp Pulse Pulse Resp BP BP Pulse Ox 11/01/21 07:08 97.3 F L 80 18 134/83 94 L 11/01/21 01:50 98.1 F 90 18 130/75 95 10/31/21 18:45 97.7 F 110 H 18 148/81 95 10/31/21 18:20 97.7 F 110 H 133/92 96 10/31/21 17:34 102 H 16 119/83 97 10/31/21 12:37 97.6 F 96 18 133/83 98 Intake and Output 10/31/21 11/01/21 11/01/21 22:59 06:59 14:59 Other: # Voids 2 Weight 133.81 kg Results CBC & Chem 7: 10/31/21 13:52 10/31/21 13:52 Labs: Abnormal Lab Results - Last 24 Hours (Table) 10/31/21 10/31/21 11/01/21 Range/Units 13:52 20:22 06:47 Sodium 136 L (137-145) mmol/L Chloride 93 L (98-107) mmol/L Carbon Dioxide 33 H (22-30) mmol/L BUN 22 H (9-20) mg/dL Glucose 120 H (74-99) mg/dL POC Glucose (mg/dL) 219 H 119 H (75-99) mg/dL AST 85 H (17-59) U/L ALT 119 H (4-49) U/L Alkaline Phosphatase 150 H (38-126) U/L C-Reactive Protein 5.6 H (<1.0) mg/dL Total Protein 8.6 H (6.3-8.2) g/dL 11/01/21 Range/Units 11:12 Sodium (137-145) mmol/L Chloride (98-107) mmol/L Carbon Dioxide (22-30) mmol/L BUN (9-20) mg/dL Glucose (74-99) mg/dL POC Glucose (mg/dL) 150 H (75-99) mg/dL AST (17-59) U/L ALT (4-49) U/L Alkaline Phosphatase (38-126) U/L C-Reactive Protein (<1.0) mg/dL Total Protein (6.3-8.2) g/dL Assessment and Plan (1) Pressure ulcer of left heel, stage 3 Current Visit: Yes Status: Acute Code(s): L89.623 - PRESSURE ULCER OF LEFT HEEL, STAGE 3 SNOMED Code(s): 01308394938784 (2) Diabetic foot ulcer Current Visit: Yes Status: Acute Code(s): E11.621 - TYPE 2 DIABETES MELLITUS WITH FOOT ULCER; L97.509 - NON-PRESSURE CHRONIC ULCER OTH PRT UNSP FOOT W UNSP SEVERITY SNOMED Code(s): 111001687
--- NOTE | 2021-11-01 13:08 | P.GSCN ---
History of Present Illness Consult date: 11/01/21 Reason for Consult: Diabetic foot ulcer Requesting physician: Donavan Carcamo History of present illness: This is 66-year-old male with a past medical history of coronary artery disease, type 2 diabetes, hypertension, hyperlipidemia, obesity and obstructive sleep apnea who presented to the emergency department with complaints of right foot pain and diabetic ulcer. Apparently patient had seen Dr. Crawford outpatient about 4 weeks ago for faecalis that he had the branded. States that it had improved. But then about 2 weeks ago he started noticing an opening on his right heel along with cracking with progressive redness and swelling to the right foot. He had an x-ray of the right foot that showed cellulitis, no evidence for osteomyelitis. He he states then he does not have much feeling in that foot, no fevers or chills at home. Apparently he was recently hospitalized at [facility] for a rash which she states was raised and almost blisterlike, purple/red in color. His states she's been caring for the foot and cleaning out. She had started noticing increased redness which she had marked and became concerned for infection so came to the emergency department. She states it has improved since he's been here. He denies any pain in his legs, denies any pain with walking. He denies chest pain or shortness of breath, no abdominal pain, nausea or vomiting. Review of Systems A 14 point review of systems was completed all pertinent positives and negatives as stated in the HPI Past Medical History Past Medical History: Coronary Artery Disease (CAD), Diabetes Mellitus, GERD/Reflux, Hyperlipidemia, Hypertension, Liver Disease, Myocardial Infarction (NC), Seizure Disorder, Vascular Disorder Additional Past Medical History / Comment(s): NIDDM type II, neuropathy bilateral arms/legs/feet, past gastric ulcer, hiatal hernia, seizure once following back surgery thought d/t medications, chronic back/cervical pain, post laminectomy syndrome, kidney stones, fatty liver, venous stasis Last Myocardial Infarction Date:: 08/26/18 History of Any Multi-Drug Resistant Organisms: None Reported Past Surgical History: Back Surgery, Heart Catheterization, Heart Catheterization With Stent, Orthopedic Surgery Additional Past Surgical History / Comment(s): Back surgeries/laminectomies and fusions, R ulnar nerbe release, R carpal tunnel release, UVPPP, EGD, colonoscopy. Past Anesthesia/Blood Transfusion Reactions: Postoperative Nausea & Vomiting (PONV) Date of Last Stent Placement:: 08/26/17 Past Psychological History: Anxiety, Depression Additional Psychological History / Comment(s): Pt resides with his spouse. He uses a cane occasionally. He drives. Smoking Status: Former smoker Past Alcohol Use History: Rare Additional Past Alcohol Use History / Comment(s): Pt started smoking in 1972 and quit in 1987 Past Drug Use History: None Reported Additional Drug Use History / Comment(s): rarely drinks alcohol, social - Past Family History Mother Family Medical History: Myocardial Infarction (NC), Musculoskeletal Disorder Additional Family Medical History / Comment(s): Post polio syndrome Father Family Medical History: Cancer, Coronary Artery Disease (CAD) Additional Family Medical History / Comment(s): prostate. Sister(s) Family Medical History: No Reported History Son(s) Family Medical History: No Reported History Daughter(s) Family Medical History: No Reported History Medications and Allergies Home Medications Medication Instructions Recorded Confirmed Type Omeprazole [PriLOSEC] 20 mg PO HS 12/06/13 10/31/21 History Gabapentin [Neurontin] 1,200 mg PO HS 06/29/16 10/31/21 History Glimepiride [Amaryl] 2 mg PO HS 06/26/17 10/31/21 History ALPRAZolam [Xanax] 1 mg PO DAILY PRN 08/26/18 10/31/21 History tiZANidine [Zanaflex] 2 - 4 mg PO HS 08/26/18 10/31/21 History Atorvastatin [Lipitor] 80 mg PO HS #30 tab 08/29/18 10/31/21 Rx Nitroglycerin Sl Tabs [Nitrostat] 0.4 mg SUBLINGUAL Q5M PRN #25 tab 08/29/18 10/31/21 Rx oxyCODONE HCL [oxyCODONE HCL (IR)] 20 mg PO TID PRN 09/02/18 10/31/21 History Clopidogrel [Plavix] 75 mg PO HS 11/18/18 10/31/21 History Amitriptyline HCl [Elavil] 100 mg PO HS 10/31/21 10/31/21 History Levofloxacin [Levaquin] 500 mg PO HS 10/31/21 10/31/21 History hydroCHLOROthiazide [Hydrodiuril] 50 mg PO DAILY 10/31/21 10/31/21 History metFORMIN HCL 500 mg PO HS 10/31/21 10/31/21 History Allergies Allergy/AdvReac Type Severity Reaction Status Date / Time Sulfa (Sulfonamide Allergy Rash/Hives Verified 10/31/21 13:35 Antibiotics) morphine AdvReac Severe Confusion Verified 10/31/21 13:35 Surgical - Exam Vital Signs Temp Pulse Resp BP Pulse Ox 97.6 F 96 18 133/83 98 10/31/21 12:37 10/31/21 12:37 10/31/21 12:37 10/31/21 12:37 10/31/21 12:37 General appearance: The patient is alert, oriented, appears in no acute dist ress. Obese. HET: Head is normocephalic and atraumatic. Pupils are equal and reactive. Neck: Supple without lymphadenopathy. Trachea midline. No audible carotid bruit. Heart: S1 S2. Regular rate and rhythm. Lungs: Clear to auscultation bilaterally. Abdomen: Soft, obese, nontender, nondistended. Extremities: Right foot with edema, left foot no swelling. Small diabetic ulcer to the lateral aspect of right heel. Right heel with diabetic ulcer, cracking with fissure. Neurological: No focal deficits. Decreased sensation in bilateral feet. Results - Labs 10/31/21 13:52 10/31/21 13:52 Abnormal Lab Results - Last 24 Hours (Table) 10/31/21 10/31/21 11/01/21 Range/Units 13:52 20:22 06:47 Sodium 136 L (137-145) mmol/L Chloride 93 L (98-107) mmol/L Carbon Dioxide 33 H (22-30) mmol/L BUN 22 H (9-20) mg/dL Glucose 120 H (74-99) mg/dL POC Glucose (mg/dL) 219 H 119 H (75-99) mg/dL AST 85 H (17-59) U/L ALT 119 H (4-49) U/L Alkaline Phosphatase 150 H (38-126) U/L C-Reactive Protein 5.6 H (<1.0) mg/dL Total Protein 8.6 H (6.3-8.2) g/dL Diabetes panel 10/31/21 Range/Units 13:52 Sodium 136 L (137-145) mmol/L Potassium 3.9 (3.5-5.1) mmol/L Chloride 93 L (98-107) mmol/L Carbon Dioxide 33 H (22-30) mmol/L BUN 22 H (9-20) mg/dL Creatinine 1.08 (0.66-1.25) mg/dL Glucose 120 H (74-99) mg/dL Calcium 9.3 (8.4-10.2) mg/dL AST 85 H (17-59) U/L ALT 119 H (4-49) U/L Alkaline Phosphatase 150 H (38-126) U/L Total Protein 8.6 H (6.3-8.2) g/dL Albumin 4.2 (3.5-5.0) g/dL Calcium panel 10/31/21 Range/Units 13:52 Calcium 9.3 (8.4-10.2) mg/dL Albumin 4.2 (3.5-5.0) g/dL Pituitary panel 10/31/21 Range/Units 13:52 Sodium 136 L (137-145) mmol/L Potassium 3.9 (3.5-5.1) mmol/L Chloride 93 L (98-107) mmol/L Carbon Dioxide 33 H (22-30) mmol/L BUN 22 H (9-20) mg/dL Creatinine 1.08 (0.66-1.25) mg/dL Glucose 120 H (74-99) mg/dL Calcium 9.3 (8.4-10.2) mg/dL Adrenal panel 10/31/21 Range/Units 13:52 Sodium 136 L (137-145) mmol/L Potassium 3.9 (3.5-5.1) mmol/L Chloride 93 L (98-107) mmol/L Carbon Dioxide 33 H (22-30) mmol/L BUN 22 H (9-20) mg/dL Creatinine 1.08 (0.66-1.25) mg/dL Glucose 120 H (74-99) mg/dL Calcium 9.3 (8.4-10.2) mg/dL Total Bilirubin 0.8 (0.2-1.3) mg/dL AST 85 H (17-59) U/L ALT 119 H (4-49) U/L Alkaline Phosphatase 150 H (38-126) U/L Total Protein 8.6 H (6.3-8.2) g/dL Albumin 4.2 (3.5-5.0) g/dL - Imaging Comments: X-ray right foot impression states soft tissue swelling, correlate for cellulitis, alternate image may be of benefit. This was reviewed independently by Dr. Stauffer who agreed to does not appear to have any evidence of osteomye litis. Venous Doppler bilateral lower extremities without any evidence of DVT. Lower extremity arterial duplex: GAY right 1.13, left 1.22, no evidence of peripheral arterial disease Assessment and Plan Assessment: 1. Right diabetic foot ulcer 2. Type 2 diabetes with peripheral neuropathy 3. Obesity 4. History of coronary artery disease with previous NC 5. History of hypertension and hyperlipidemia Plan: 1. Antibiotics per recommendations from infectious disease 2. Bedside debridement done by Dr. Momin 3. Aerobic and anaerobic cultures ordered 4. Offload weight on right heel 5. Wound care consulted 6. Keep nothing by mouth, for possible formal debridement in the operating room tomorrow Thank you for this consultation, we will continue to follow. The impression and plan of care has been dictated as directed. I performed a history and examination of this patient, discussed the same with the dictator. I agree with the dictator's note ,documented as a scribe. Any additional findings or plans will be noted.
[2021-11-01] MEDS: COLLAGENASE 250 UNIT/GM OINTMENT 30 GM TUBE TOPICAL SCH (15:06)
[2021-11-01 16:11] LABS: Glucose,Whole Blood 153 mg/dL (75-99)
--- NOTE | 2021-11-01 16:27 | US ---
EXAMINATION TYPE: US arterial LE multi level DATE OF EXAM: 11/01/2021 9:09 AM CLINICAL HISTORY: PVD. Diabetic ulcer on right foot for 1 month, h/o heart stents History of hypertensio, diabetes, heart attack and hyperlipidemia Doppler Waveforms: Right: Multiphasic Left: Multiphasic Ankle-Brachial Indices: Right: 1.22 Left: 0.80 Toe Brachial Indices: Right: 0.75 Left: 0.75 IMPRESSION: Exam is within normal limits.
[2021-11-01 20:17] LABS: Glucose,Whole Blood 187 mg/dL (75-99)
[2021-11-01] MEDS: ATORVASTATIN 80 MG TAB PO SCH (21:02)
[2021-11-01] MEDS: METOPROLOL TARTRATE 12.5 MG TAB PO SCH (21:02)
[2021-11-01] MEDS: metFORMIN 500 MG TAB PO SCH (21:02)
[2021-11-01] MEDS: GABAPENTIN 400 MG CAP PO SCH (21:02)
[2021-11-01] MEDS: GLIMEPIRIDE 2 MG TAB PO SCH (21:02)
[2021-11-01] MEDS: CLOPIDOGREL 75 MG TAB PO SCH (21:02)
[2021-11-01] MEDS: PANTOPRAZOLE 40 MG TABLET PO SCH (21:03)
[2021-11-01] MEDS: AMITRIPTYLINE HCL 50 MG TAB PO SCH (21:36)
[2021-11-01] MEDS: tiZANidine 4 MG TAB PO SCH (21:36)
--- NOTE | 2021-11-01 23:43 | P.CONS ---
History of Present Illness - Reason for Consult Consult date: 11/01/21 Diabetic foot infection Requesting physician: Juventino Conner - Chief Complaint Right heel ulcer swelling and redness x few days - History of Present Illness Patient is a 66-year-old male with a past medical history significant for diabetes mellitus and history of diabetic neuropathy patient apparently did have a callus to the right heel area which seem to have recently debrided by his farm agent in the outpatient setting subsequently the patient noticed to have a peeling of the skin and development of serration to the right heel and also with associated swelling and redness which seems to have been spreading to the leg had that has concerned the family and the patient was brought to the hospital for further evaluation patient denies having any pain to the heel area because of underlying neuropathy patient denies having any fever or any chills and no fe yassine was recorded on presentation to the hospital, patient did have a normal white count however elevated sed rate of 91 creatinine was normal liver exams while elevated blood cultures has been obtained which are currently pending patient did have a x-ray of the foot soft tissue swelling correlate for cellulitis patient has been started on Zosyn and vancomycin infectious disease was consulted for further management of antibiotic therapy Review of Systems Positive point has been mentioned in the HPI rest of the systems are negative Past Medical History Past Medical History: Coronary Artery Disease (CAD), Diabetes Mellitus, G ERD/Reflux, Hyperlipidemia, Hypertension, Liver Disease, Myocardial Infarction ([place]), Seizure Disorder, Vascular Disorder Additional Past Medical History / Comment(s): NIDDM type II, neuropathy bilateral arms/legs/feet, past gastric ulcer, hiatal hernia, seizure once following back surgery thought d/t medications, chronic back/cervical pain, post laminectomy syndrome, kidney stones, fatty liver, venous stasis Last Myocardial Infarction Date:: 08/26/18 History of Any Multi-Drug Resistant Organisms: None Reported Past Surgical History: Back Surgery, Heart Catheterization, Heart Catheterization With Stent, Orthopedic Surgery Additional Past Surgical History / Comment(s): Back surgeries/laminectomies and fusions, R ulnar nerbe release, R carpal tunnel release, UVPPP, EGD, colonoscopy. Past Anesthesia/Blood Transfusion Reactions: Postoperative Nausea & Vomiting (PONV) Date of Last Stent Placement:: 08/26/17 Past Psychological History: Anxiety, Depression Additional Psychological History / Comment(s): Pt resides with his spouse. He uses a cane occasionally. He drives. Smoking Status: Former smoker Past Alcohol Use History: Rare Additional Past Alcohol Use History / Comment(s): Pt started smoking in 1972 and quit in 1987 Past Drug Use History: None Reported Additional Drug Use History / Comment(s): rarely drinks alcohol, social - Past Family History Mother Family Medical History: Myocardial Infarction ([place]), Musculoskeletal Disorder Additional Family Medical History / Comment(s): Post polio syndrome Father Family Medical History: Cancer, Coronary Artery Disease (CAD) Additional Family Medical History / Comment(s): prostate. Sister(s) Family Medical History: No Reported History Son(s) Family Medical History: No Reported History Daughter(s) Family Medical History: No Reported History Medications and Allergies Home Medications Medication Instructions Recorded Confirmed Type Omeprazole [PriLOSEC] 20 mg PO HS 12/06/13 10/31/21 History Gabapentin [Neurontin] 1,200 mg PO HS 06/29/16 10/31/21 History Glimepiride [Amaryl] 2 mg PO HS 06/26/17 10/31/21 History ALPRAZolam [Xanax] 1 mg PO DAILY PRN 08/26/18 10/31/21 History tiZANidine [Zanaflex] 2 - 4 mg PO HS 08/26/18 10/31/21 History Atorvastatin [Lipitor] 80 mg PO HS #30 tab 08/29/18 10/31/21 Rx Nitroglycerin Sl Tabs [Nitrostat] 0.4 mg SUBLINGUAL Q5M PRN #25 tab 08/29/18 10/31/21 Rx oxyCODONE HCL [oxyCODONE HCL (IR)] 20 mg PO TID PRN 09/02/18 10/31/21 History Clopidogrel [Plavix] 75 mg PO HS 11/18/18 10/31/21 History Amitriptyline HCl [Elavil] 100 mg PO HS 10/31/21 10/31/21 History Levofloxacin [Levaquin] 500 mg PO HS 10/31/21 10/31/21 History hydroCHLOROthiazide [Hydrodiuril] 50 mg PO DAILY 10/31/21 10/31/21 History metFORMIN HCL 500 mg PO HS 10/31/21 10/31/21 History Allergies Allergy/AdvReac Type Severity Reaction Status Date / Time Sulfa (Sulfonamide Allergy Rash/Hives Verified 10/31/21 13:35 Antibiotics) morphine AdvReac Severe Confusion Verified 10/31/21 13:35 Physical Exam Vitals: Vital Signs Temp Pulse Pulse Resp BP BP Pulse Ox 11/01/21 07:08 97.3 F L 80 18 134/83 94 L 11/01/21 01:50 98.1 F 90 18 130/75 95 10/31/21 18:45 97.7 F 110 H 18 148/81 95 10/31/21 18:20 97.7 F 110 H 133/92 96 10/31/21 17:34 102 H 16 119/83 97 10/31/21 12:37 97.6 F 96 18 133/83 98 Intake and Output 10/31/21 11/01/21 11/01/21 22:59 06:59 14:59 Other: # Voids 2 Weight 133.81 kg GENERAL DESCRIPTION: Middle-aged male lying in bed, no distress. No tachypnea or accessory muscle of respiration use. HEENT: Shows Pallor , no scleral icterus. Oral mucous membrane is dry. No pharyngeal erythema or thrush NECK: Trachea central, no thyromegaly. LUNGS: Unlabored breathing. Clear to auscultation anteriorly. No wheeze or crackle. HEART: S1, S2, regular rate and rhythm. No loud murmur ABDOMEN: Soft, no tenderness , guarding or rigidity, no organomegaly EXTREMITIES: Right heel ulcer with an area of callus formation and some fluctuance surrounding redness no foul-smelling drainage SKIN: No rash, no masses palpable. NEUROLOGICAL: The patient is awake, alert, oriented x3, mood and affect normal. Results CBC & Chem 7: 10/31/21 13:52 10/31/21 13:52 Labs: Abnormal Lab Results - Last 24 Hours (Table) 10/31/21 10/31/21 11/01/21 Range/Units 13:52 20:22 06:47 Sodium 136 L (137-145) mmol/L Chloride 93 L (98-107) mmol/L Carbon Dioxide 33 H (22-30) mmol/L BUN 22 H (9-20) mg/dL Glucose 120 H (74-99) mg/dL POC Glucose (mg/dL) 219 H 119 H (75-99) mg/dL AST 85 H (17-59) U/L ALT 119 H (4-49) U/L Alkaline Phosphatase 150 H (38-126) U/L C-Reactive Protein 5.6 H (<1.0) mg/dL Total Protein 8.6 H (6.3-8.2) g/dL Assessment and Plan (1) Diabetic foot ulcer Current Visit: Yes Status: Acute Code(s): E11.621 - TYPE 2 DIABETES MELLITUS WITH FOOT ULCER; L97.509 - NON-PRESSURE CHRONIC ULCER OTH PRT UNSP FOOT W UNSP SEVERITY SNOMED Code(s): 867066471 Plan: 1patient with right heel diabetic foot infection likely with infected callus and secondary cellulitis likely from gram-positive skin shubham underlying gram- negative infection less likely but not entirely excluded. 2wait for the vascular surgery debridement and deep culture that will guide his antibiotic therapy. 3vancomycin pharmacy to dose target trough of 15 while watching kidney function and vancomycin trough closely however discontinue Zosyn to decrease risk of nephrotoxicity and add Unasyn. We will follow on clinical condition and cultures to further adjust medication if needed Thank you for this consultation will follow this patient along with you
[2021-11-02] MEDS: AMPICILLIN-SULBACTAM 3 GM in SODIUM CHLORIDE 0.9% 100 ML IVPB SCH ×3 (00:05→15:12)
[2021-11-02] MEDS: VANCOMYCIN 2,000 MG in SODIUM CHLORIDE 0.9% 500 ML 500 ML IVPB SCH ×2 (04:41→15:41)
[2021-11-02 06:56] LABS: Glucose,Whole Blood 60 mg/dL (75-99)
[2021-11-02] MEDS ORDERED: DEXTROSE 50% SYRINGE 50 ML IVP ONE (07:03)
[2021-11-02 07:35] LABS: Glucose,Whole Blood 149 mg/dL (75-99)
[2021-11-02] MEDS: INSULIN ASPART (NovoLOG) 100 UNIT/ML VIAL SQ SCH ×4 (08:30→20:41)
[2021-11-02] MEDS: LOSARTAN 25 MG TAB PO SCH (08:31)
[2021-11-02] MEDS: COLLAGENASE 250 UNIT/GM OINTMENT 30 GM TUBE TOPICAL SCH (09:26)
--- NOTE | 2021-11-02 10:31 | P.PN ---
Subjective Progress Note Date: 11/02/21 HISTORY OF PRESENT ILLNESS 66-year-old morbidly obese one of Dr. Godoy patient with multiple medical problem is known to have history of CAD post VT in the past, history of type 2 diabetes, history of hypertension hyperlipidemia and obstructive sleep apnea who had mild COPD as well with developed to have small ulcer on the heel area for over 3 weeks ago, was seen his primary care physician and start on antibiotic with Avelox initially and then request patient to come to the office for Rocephin injection which patient had 3 of them this last week. The area become much worse since then open and widely spreading with infection spreading to a few inches above the ankle area the area become more symptomatic with worsening cellulitis and open sore on the heel area. Patient had multiple problems in the past had seen at the wound clinic and had both side treated in the past. This time with failure to outpatient treatment patient was instructed to come to the hospital where was seen and evaluated culture was done at the time patient was started on vancomycin and Zosyn will be admitted to the hospital will be seen infectious disease and wound care. Pending of the culture patient also will be seen vascular to see if part of the problem is PAD. Addition to with one of the right side patient had small area on the left medial aspect of the lower part of the leg looks like small tiny ulcerated but had healed compared to before. 11/01: Ultrasound of the right lower extremity negative for DVT. Arterial ultrasound has been obtained and results are pending. Patient has been seen by vascular surgery with plan for I&D tomorrow. There is a consult in place for the wound healing Center. Dr. villagran is following patient continued on vancomycin and Zosyn. Patient has been afebrile, heart rate 80, blood pressure 134/83, pulse ox 94% on room air. Capillary blood glucose running between 119 and 219. A1c, sed rate and CRP ordered. Patient's is at bedside and all questions have been answered. 11/02: Yesterday, Dr. Momin did a bedside debridement on the right heel. Dr. Jack has evaluated this morning and no plan for full debridement in the aorta day. Patient has been seen by Dr. Morris with recommendations to continue vancomycin, pharmacy dosing and discontinued Zosyn. Arterial ultrasound was within normal limits. Patient is also been seen by wound center with recommendations for Santyl, saline moistened gauze, dry gauze and rolled gauze. Wound culture is in progress, blood culture no growth after 24 hours 2 specimens. Patient remains afebrile, heart rate 73, blood pressure 109/76, pulse ox 95% on room air. Patient had a blood sugar this morning of 60 with repeat of 149. Overall, blood sugars have been running between line 119 and 187 . A1c 7.6. C-reactive protein 4.5, sed rate 91. Multiple attempts to been made to obtain IV access and Accucath will be ordered for the patient. REVIEW OF SYSTEMS CONSTITUTIONAL: Morbidly obese no acute respiratory distress. Denies fever, denies chills. EYES: No icterus sclerae, no conjunctivitis. EARS, NOSE, MOUTH, THROAT, and FACE: No sore throat, lymphadenopathy, carotid bruits or deformity. RESPIRATORY: Positive shortness of breath and dyspnea CARDIOVASCULAR: No chest pain or angina and palpitation GASTROINTESTINAL: No Abd pain, Nausea or vomiting, no Diarrhea or constipation, No GI Bleed, no distention or masses. GENITOURINARY: Negative for Hematuria or UTI, no kidney stones. INTEGUMENT/BREAST: Generalized arthritis with muscle and joint pain with chronic lower back pain with open sore on the right heel area along with cellulitis in the right leg and small folliculitis on the left side. HEMATOLOGIC/LYMPHATIC: Negative for bleed or purpura. MUSCULOSKELTAL: Negative for Myalgia or arthralgia. NEURLOGICAL: No LOC, Sz or syncope, blurred vision dizziness or abnormality.. BEHAVIORAL/PSYCH: Negative. PHYSICAL EXAMINATION General Appearance: Alert, cooperative, no distress, appears stated age. Morbidly obese Neck HEENT: Supple, no lymphadenopathy, no thyroid enlargement, no carotid bruits. Lungs: Decreased breath sound bilaterally fine rhonchi Chest Wall: Chest wall normal expansion with deep inspiration no tenderness and no deformity was found on exam, no costochondral pain or discomfort. Heart: Regular rate and rhythm, S1, S2 normal, no murmur, rub or gallop. Back: Symmetric, no curvature, ROM normal, no CVA tenderness. Abdomen: Soft, non-tender, bowel sounds active all four quadrants, no masses, no organomegaly. Extremities: Decreased pulses bilaterally worse on the right than the left side dressing in place to the right foot Pulses: Significantly decreased in both side. Skin: Skin color, texture, tugor normal, no rashes or lesions. Neurologic: Alert oriented x3 cranial nerves II through XII intact, no motor deficit, no abnormal balance or gait. ASSESSMENT AND PLAN 1. Severe nonhealing diabetic ulcer on the right heel status post bedside de bridement 11/01. Continue patient on vancomycin, consult with vascular surgery and infectious disease appreciated. 2 severe nonhealing with failure to outpatient treatment cellulitis and diabetic person: Patient will be on IV antibiotic for now awaiting for culture for his final result. 3 type 2 diabetes: Has been on metformin and glyburide resume medication will add Accu-Chek sliding scales coverage per [employer]. 4 CAD post VT in the past has been seeing cardiology still on atorvastatin not clear why patient is not and Nnamdi or beta jean at this point. 5 chronic pain syndrome: Patient has been on gabapentin, Elavil along with OxyIR with Zanaflex per his primary care physician. 6 abnormal liver function test: Not clear etiology most likely Renteria watch symptoms closely repeat liver function tests with testing. 7 hyperlipidemia: Continue patient on atorvastatin. 8 chronic diabetic neuropathy: Continue gabapentin. 9 hypertension: Patient was on losartan and metoprolol the past has been off at this point watch the blood pressure patient probably will be introduced back to at least are. 10 severe GERD: Has been on omeprazole 20 mg daily. 11 history of obstructive sleep apnea: Patient is not using any CPAP at this point. CODE STATUS: Full code DISCHARGE PLAN Home Impression and plan of care have been directed as dictated by the signing physician. Tiffanie Moore nurse practitioner acting as scribe for signing physician. Objective - Vital Signs Vital signs: Vital Signs Temp 98.7 F 11/02/21 07:19 Pulse 73 11/02/21 07:19 Resp 17 11/02/21 07:19 BP 109/76 11/02/21 07:19 Pulse Ox 95 11/02/21 02:00 Intake & Output 11/01/21 11/02/21 11/02/21 18:59 06:59 18:59 Intake Total 1080 Balance 1080 Intake: Oral 1080 Other: # Voids 2 - Labs CBC & Chem 7: 10/31/21 13:52 10/31/21 13:52 Labs: Abnormal Lab Results - Last 24 Hours (Table) 11/01/21 11/01/21 11/01/21 Range/Units 11:12 11:21 11:21 ESR 91 H (0-15) mm/hr POC Glucose (mg/dL) 150 H (75-99) mg/dL Hemoglobin A1c 7.6 H (0.0-6.0) % C-Reactive Protein (<1.0) mg/dL 11/01/21 11/01/21 11/01/21 Range/Units 11:21 16:07 20:07 ESR (0-15) mm/hr POC Glucose (mg/dL) 153 H 187 H (75-99) mg/dL Hemoglobin A1c (0.0-6.0) % C-Reactive Protein 4.5 H (<1.0) mg/dL 11/02/21 11/02/21 Range/Units 06:47 07:33 ESR (0-15) mm/hr POC Glucose (mg/dL) 60 L 149 H (75-99) mg/dL Hemoglobin A1c (0.0-6.0) % C-Reactive Protein (<1.0) mg/dL Microbiology - Last 24 Hours (Table) 11/01/21 11:45 Gram Stain - Preliminary Foot - Right Wound Culture - Preliminary 11/01/21 11:45 Anaerobic Culture - Preliminary Heel - Right 10/31/21 13:51 Blood Culture - Preliminary Blood No Growth after 24 hours 10/31/21 13:25 Blood Culture - Preliminary Blood No Growth after 24 hours
[2021-11-02 11:30] LABS: Glucose,Whole Blood 219 mg/dL (75-99)
--- NOTE | 2021-11-02 11:47 | P.PN ---
Subjective Progress Note Date: 11/02/21 She was seen and examined lying in bed. He has had follow-up for a right diabetic foot ulcer. Yesterday it was too debrided by Dr. Momin at the bedside. Patient states he is feeling a little bit better. Redness has improved on his foot. He's been afebrile. He is currently on Unasyn and vancomycin. Arterial duplex was done yesterday right GAY 1.13, left 1.22, showing no evidence of peripheral arterial disease. Preliminary wound culture with presumptive MRSA. Patient to get Midline placement today. Objective - Vital Signs Vital signs: Vital Signs Temp 98.7 F 11/02/21 07:19 Pulse 73 11/02/21 07:19 Resp 17 11/02/21 07:19 BP 109/76 11/02/21 07:19 Pulse Ox 95 11/02/21 02:00 Intake & Output 11/01/21 11/02/21 11/02/21 18:59 06:59 18:59 Intake Total 1080 Balance 1080 Intake: Oral 1080 Other: # Voids 2 1 - Exam General appearance: The patient is alert, oriented, obese, appears in no acute distress. HET: Head is normocephalic and atraumatic. Pupils are equal and reactive. Neck: Supple without lymphadenopathy. Trachea midline. Abdomen: Soft, nontender, nondistended. Extremities: Normal skin color and turgor. Right foot with edema, no redness. Ulcer to right heel, with slough tissue, no odor or drainage. Neurological: No focal deficits. Strength and sensation are grossly intact. - Labs CBC & Chem 7: 10/31/21 13:52 10/31/21 13:52 Labs: Abnormal Lab Results - Last 24 Hours (Table) 11/01/21 11/01/21 11/01/21 Range/Units 11:21 11:21 11:21 ESR 91 H (0-15) mm/hr POC Glucose (mg/dL) (75-99) mg/dL Hemoglobin A1c 7.6 H (0.0-6.0) % C-Reactive Protein 4.5 H (<1.0) mg/dL 11/01/21 11/01/21 11/02/21 Range/Units 16:07 20:07 06:47 ESR (0-15) mm/hr POC Glucose (mg/dL) 153 H 187 H 60 L (75-99) mg/dL Hemoglobin A1c (0.0-6.0) % C-Reactive Protein (<1.0) mg/dL 11/02/21 Range/Units 07:33 ESR (0-15) mm/hr POC Glucose (mg/dL) 149 H (75-99) mg/dL Hemoglobin A1c (0.0-6.0) % C-Reactive Protein (<1.0) mg/dL Microbiology - Last 24 Hours (Table) 11/01/21 11:45 Gram Stain - Preliminary Foot - Right Wound Culture - Preliminary Presumptive MRSA 11/01/21 11:45 Anaerobic Culture - Preliminary Heel - Right 10/31/21 13:51 Blood Culture - Preliminary Blood No Growth after 24 hours 10/31/21 13:25 Blood Culture - Preliminary Blood No Growth after 24 hours Assessment and Plan Assessment: 1. Right diabetic foot ulcer 2. Type 2 diabetes with peripheral neuropathy 3. Arterial duplex reviewed, right GAY 1.13, left 1.22, not consistent with peripheral arterial disease 4. Obesity 5. History of coronary artery disease with previous [place] 6. History of hypertension and hyperlipidemia Plan: 1. Antibiotics per recommendations from infectious disease 2. Bedside debridement done by Dr. Momin 3. cultures pending 4. Offload weight on right heel 5. Wound care consulted 6. No further debridement indicated at this time. Surgery will be canceled for today. 7. Patient may have consistent carbohydrate diet 8. Physical therapy on consult Thank you for this consultation, we will continue to follow. The impression and plan of care has been dictated as directed. Dr. Jack I performed a history and examination of this patient, discussed the same with the dictator. I agree with the dictator's note ,documented as a scribe. Any additional findings or plans will be noted.
[2021-11-02 12:33] VITALS: BMI 42.3
[2021-11-02] MEDS ORDERED: VANCOMYCIN TROUGH DUE 1 EACH MISC MISCELLANE ONE (15:00)
[2021-11-02 16:03] LABS: Glucose,Whole Blood 83 mg/dL (75-99)
--- NOTE | 2021-11-02 18:04 | P.PN ---
Subjective Progress Note Date: 11/02/21 Principal diagnosis: Right diabetic foot infection Patient is a 66-year-old male with a past medical history significant for diabetes mellitus presented to the hospital with right heel wound after the patient did have a debridement of the callus by his data modeler with evidence of secondary cellulitis. On today's evaluation that is 11/02/2021, patient denies having any fever or any chills, the patient denies pain to the right knee area because of his underlying neuropathy, there is some drainage on the dressing, the patient denies having any chest pain shortness of breath or cough no nausea no vomiting no abdominal pain no diarrhea Objective - Vital Signs Vital signs: Vital Signs Temp 98.1 F 11/02/21 13:38 Pulse 90 11/02/21 13:38 Resp 18 11/02/21 13:38 BP 144/63 11/02/21 13:38 Pulse Ox 97 11/02/21 13:38 Intake & Output 11/01/21 11/02/21 11/02/21 18:59 06:59 18:59 Intake Total 1080 Balance 1080 Weight 133.81 kg Intake: Oral 1080 Other: # Voids 2 1 - Exam GENERAL DESCRIPTION: Middle-aged male lying in bed in no distress RESPIRATORY SYSTEM: Unlabored breathing , decreased breath sounds at bases HEART: S1 S2 regular rate and rhythm , ABDOMEN: Soft , no tenderness EXTREMITIES: Right heel wound is currently dressed no drainage on the dressing - Labs CBC & Chem 7: 10/31/21 13:52 11/02/21 15:29 Labs: Abnormal Lab Results - Last 24 Hours (Table) 11/01/21 11/01/21 11/01/21 Range/Units 11:21 11:21 16:07 ESR 91 H (0-15) mm/hr POC Glucose (mg/dL) 153 H (75-99) mg/dL Hemoglobin A1c 7.6 H (0.0-6.0) % 11/01/21 11/02/21 11/02/21 Range/Units 20:07 06:47 07:33 ESR (0-15) mm/hr POC Glucose (mg/dL) 187 H 60 L 149 H (75-99) mg/dL Hemoglobin A1c (0.0-6.0) % 11/02/21 Range/Units 11:18 ESR (0-15) mm/hr POC Glucose (mg/dL) 219 H (75-99) mg/dL Hemoglobin A1c (0.0-6.0) % Microbiology - Last 24 Hours (Table) 11/01/21 11:45 Gram Stain - Preliminary Foot - Right Wound Culture - Preliminary Presumptive MRSA 11/01/21 11:45 Anaerobic Culture - Preliminary Heel - Right 10/31/21 13:51 Blood Culture - Preliminary Blood No Growth after 24 hours 10/31/21 13:25 Blood Culture - Preliminary Blood No Growth after 24 hours Assessment and Plan (1) Diabetic foot ulcer Current Visit: Yes Status: Acute Code(s): E11.621 - TYPE 2 DIABETES MELLITUS WITH FOOT ULCER; L97.509 - NON-PRESSURE CHRONIC ULCER OTH PRT UNSP FOOT W UNSP SEVERITY SNOMED Code(s): 250045172 Plan: 1patient with right heel diabetic foot infection likely with infected callus and secondary cellulitis likely from gram-positive skin shubham underlying gram-ne gative infection less likely but not entirely excluded. 2 vascular surgery recommended against debridement at this point 3patient to continue with vancomycin pharmacy to dose target trough of 15 while watching kidney function as a cultures currently growing presumptive MRSA, patient will likely need IV antibiotic on discharge will discuss further with the nurse outreach case manager Time with Patient: Less than 30
[2021-11-02 20:36] LABS: Glucose,Whole Blood 204 mg/dL (75-99)
[2021-11-02] MEDS: CLOPIDOGREL 75 MG TAB PO SCH (20:40)
[2021-11-02] MEDS: GLIMEPIRIDE 2 MG TAB PO SCH (20:40)
[2021-11-02] MEDS: GABAPENTIN 400 MG CAP PO SCH (20:40)
[2021-11-02] MEDS: ATORVASTATIN 80 MG TAB PO SCH (20:40)
[2021-11-02] MEDS: AMITRIPTYLINE HCL 50 MG TAB PO SCH (20:40)
[2021-11-02] MEDS: tiZANidine 4 MG TAB PO SCH (20:40)
[2021-11-02] MEDS: PANTOPRAZOLE 40 MG TABLET PO SCH (20:40)
[2021-11-02] MEDS: metFORMIN 500 MG TAB PO SCH (20:40)
[2021-11-02] MEDS: METOPROLOL TARTRATE 12.5 MG TAB PO SCH (20:40)
[2021-11-03 07:01] LABS: Glucose,Whole Blood 70 mg/dL (75-99)
[2021-11-03] MEDS: INSULIN ASPART (NovoLOG) 100 UNIT/ML VIAL SQ SCH ×4 (07:10→21:10)
[2021-11-03] MEDS: LOSARTAN 25 MG TAB PO SCH (09:14)
[2021-11-03] MEDS: VANCOMYCIN 2,000 MG in SODIUM CHLORIDE 0.9% 500 ML 500 ML IVPB SCH (09:17)
[2021-11-03] MEDS: COLLAGENASE 250 UNIT/GM OINTMENT 30 GM TUBE TOPICAL SCH ×2 (09:20→14:45)
--- NOTE | 2021-11-03 10:12 | P.PN ---
Subjective Progress Note Date: 11/03/21 Today he was seen and examined lying in bed as a follow-up for a right diabetic foot ulcer. He is status post debridement. He's been afebrile. He is currently on Unasyn and vancomycin. Preliminary wound culture with presumptive MRSA. Objective - Vital Signs Vital signs: Vital Signs Temp 98.3 F 11/03/21 07:25 Pulse 74 11/03/21 07:25 Resp 18 11/03/21 08:52 BP 115/76 11/03/21 07:25 Pulse Ox 95 11/03/21 07:25 Intake & Output 11/02/21 11/03/21 11/03/21 18:59 06:59 18:59 Intake Total 200 Balance 200 Weight 133.81 kg Intake: Oral 200 Other: # Voids 1 2 2 - Exam General appearance: The patient is alert, oriented, obese, appears in no acute distress. HET: Head is normocephalic and atraumatic. Pupils are equal and reactive. Neck: Supple without lymphadenopathy. Trachea midline. Abdomen: Soft, nontender, nondistended. Extremities: Normal skin color and turgor. Right foot with edema, no redness. Dressing clean, dry, and intact. Neurological: No focal deficits. Strength and sensation are grossly intact. - Labs CBC & Chem 7: 10/31/21 13:52 11/02/21 15:29 Labs: Abnormal Lab Results - Last 24 Hours (Table) 11/02/21 11/02/21 11/03/21 Range/Units 11:18 20:35 06:59 POC Glucose (mg/dL) 219 H 204 H 70 L (75-99) mg/dL Microbiology - Last 24 Hours (Table) 10/31/21 13:25 Blood Culture - Preliminary Blood No Growth after 48 hours 10/31/21 13:51 Blood Culture - Preliminary Blood No Growth after 48 hours 11/01/21 11:45 Gram Stain - Preliminary Foot - Right Wound Culture - Preliminary Presumptive MRSA Assessment and Plan Assessment: 1. Right diabetic foot ulcer status post debridement 2. Type 2 diabetes with peripheral neuropathy 3. Arterial duplex reviewed, right GAY 1.13, left 1.22, not consistent with peripheral arterial disease 4. Obesity 5. History of coronary artery disease with previous [place] 6. History of hypertension and hyperlipidemia Plan: 1. Antibiotics per recommendations from infectious disease 2. Bedside debridement done by Dr. Momin 3. Deep tissue culture preliminary presuming MRSA 4. Offload weight on right heel 5. Wound care consulted, continue local wound care 6. No further debridement indicated at this time, follow up with outpatient wound center 7. Patient may have consistent carbohydrate diet 8. Physical therapy on consult Thank you for this consultation, he is cleared for discharge from vascular surgery. The impression and plan of care has been dictated as directed. Dr. Mustafa I performed a history and examination of this patient, discussed the same with the dictator. I agree with the dictator's note ,documented as a scribe. Any additional findings or plans will be noted.
[2021-11-03 11:22] LABS: Glucose,Whole Blood 98 mg/dL (75-99)
--- NOTE | 2021-11-03 15:27 | P.PN ---
Subjective Progress Note Date: 11/03/21 HISTORY OF PRESENT ILLNESS 66-year-old morbidly obese one of Dr. Godoy patient with multiple medical problem is known to have history of CAD post PA in the past, history of type 2 diabetes, history of hypertension hyperlipidemia and obstructive sleep apnea who had mild COPD as well with developed to have small ulcer on the heel area for over 3 weeks ago, was seen his primary care physician and start on antibiotic with Avelox initially and then request patient to come to the office for Rocephin injection which patient had 3 of them this last week. The area become much worse since then open and widely spreading with infection spreading to a few inches above the ankle area the area become more symptomatic with worsening cellulitis and open sore on the heel area. Patient had multiple problems in the past had seen at the wound clinic and had both side treated in the past. This time with failure to outpatient treatment patient was instructed to come to the hospital where was seen and evaluated culture was done at the time patient was started on vancomycin and Zosyn will be admitted to the hospital will be seen infectious disease and wound care. Pending of the culture patient also will be seen vascular to see if part of the problem is PAD. Addition to with one of the right side patient had small area on the left medial aspect of the lower part of the leg looks like small tiny ulcerated but had healed compared to before. 11/01: Ultrasound of the right lower extremity negative for DVT. Arterial ultrasound has been obtained and results are pending. Patient has been seen by vascular surgery with plan for I&D tomorrow. There is a consult in place for the wound healing Center. Dr. villagran is following patient continued on vancomycin and Zosyn. Patient has been afebrile, heart rate 80, blood pressure 134/83, pulse ox 94% on room air. Capillary blood glucose running between 119 and 219. A1c, sed rate and CRP ordered. Patient's is at bedside and all questions have been answered. 11/02: Yesterday, Dr. Momin did a bedside debridement on the right heel. Dr. Jack has evaluated this morning and no plan for full debridement in the aorta day. Patient has been seen by Dr. Morris with recommendations to continue vancomycin, pharmacy dosing and discontinued Zosyn. Arterial ultrasound was within normal limits. Patient is also been seen by wound center with recommendations for Santyl, saline moistened gauze, dry gauze and rolled gauze. Wound culture is in progress, blood culture no growth after 24 hours 2 specimens. Patient remains afebrile, heart rate 73, blood pressure 109/76, pulse ox 95% on room air. Patient had a blood sugar this morning of 60 with repeat of 149. Overall, blood sugars have been running between line 119 and 187 . A1c 7.6. C-reactive protein 4.5, sed rate 91. Multiple attempts to been made to obtain IV access and Accucath will be ordered for the patient. 11/03: Patient is feeling well today. He denies any new complaints. No fever or chills. No pain in his right foot. Patient has been afebrile, heart rate 74, blood pressure 115/76, pulse ox 95% on room air. Capillary blood glucose this morning was 70 and last evening 204. Wound culture is positive for MRSA and yeast species. PICC line is ordered. ar manager is working on IV antibiotics for home as advised by Dr. Morris with plan for vancomycin. Anticipate discharge home tomorrow. REVIEW OF SYSTEMS CONSTITUTIONAL: Morbidly obese no acute respiratory distress. Denies fever, denies chills. EYES: No icterus sclerae, no conjunctivitis. EARS, NOSE, MOUTH, THROAT, and FACE: No sore throat, lymphadenopathy, carotid bruits or deformity. RESPIRATORY: Positive shortness of breath and dyspnea CARDIOVASCULAR: No chest pain or angina and palpitation GASTROINTESTINAL: No Abd pain, Nausea or vomiting, no Diarrhea or constipation, No GI Bleed, no distention or masses. GENITOURINARY: Negative for Hematuria or UTI, no kidney stones. INTEGUMENT/BREAST: Generalized arthritis with muscle and joint pain with chronic lower back pain with open sore on the right heel area along with cellulitis in the right leg and small folliculitis on the left side. HEMATOLOGIC/LYMPHATIC: Negative for bleed or purpura. MUSCULOSKELTAL: Negative for Myalgia or arthralgia. NEURLOGICAL: No LOC, Sz or syncope, blurred vision dizziness or abnormality.. BEHAVIORAL/PSYCH: Negative. PHYSICAL EXAMINATION General Appearance: Alert, cooperative, no distress, appears stated age. Morbidly obese Neck HEENT: Supple, no lymphadenopathy, no thyroid enlargement, no carotid bruits. Lungs: Decreased breath sound bilaterally fine rhonchi Chest Wall: Chest wall normal expansion with deep inspiration no tenderness and no deformity was found on exam, no costochondral pain or discomfort. Heart: Regular rate and rhythm, S1, S2 normal, no murmur, rub or gallop. Back: Symmetric, no curvature, ROM normal, no CVA tenderness. Abdomen: Soft, non-tender, bowel sounds active all four quadrants, no masses, no organomegaly. Extremities: Decreased pulses bilaterally worse on the right than the left side dressing in place to the right foot Pulses: Significantly decreased in both side. Skin: Skin color, texture, tugor normal, no rashes or lesions. Neurologic: Alert oriented x3 cranial nerves II through XII intact, no motor deficit, no abnormal balance or gait. ASSESSMENT AND PLAN 1. Severe nonhealing diabetic ulcer on the right heel status post bedside debridement 11/01. Continue patient on vancomycin, consult with vascular surgery and infectious disease appreciated. PICC line has been ordered for IV antibiotics at home. 2 severe nonhealing with failure to outpatient treatment cellulitis and diabetic person: Patient will be on IV antibiotic for now awaiting for culture for his final result. 3 type 2 diabetes: Has been on metformin and glyburide resume medication will add Accu-Chek sliding scales coverage per [employer]. 4 CAD post PA in the past has been seeing cardiology still on atorvastatin not clear why patient is not and Nnamdi or beta jean at this point. 5 chronic pain syndrome: Patient has been on gabapentin, Elavil along with OxyIR with Zanaflex per his primary care physician. 6 abnormal liver function test: Not clear etiology most likely Renteria watch symptoms closely repeat liver function tests with testing. 7 hyperlipidemia: Continue patient on atorvastatin. 8 chronic diabetic neuropathy: Continue gabapentin. 9 hypertension: Losartan 12.5 mg daily 10 severe GERD: Has been on omeprazole 20 mg daily. 11 history of obstructive sleep apnea: Patient is not using any CPAP at this point. CODE STATUS: Full code DISCHARGE PLAN Home Impression and plan of care have been directed as dictated by the signing physician. Tiffanie Moore nurse practitioner acting as scribe for signing physician. Objective - Vital Signs Vital signs: Vital Signs Temp 98.3 F 11/03/21 07:25 Pulse 74 11/03/21 07:25 Resp 18 11/03/21 07:25 BP 115/76 11/03/21 07:25 Pulse Ox 95 11/03/21 07:25 Intake & Output 11/02/21 11/03/21 11/03/21 18:59 06:59 18:59 Weight 133.81 kg Other: # Voids 1 - Labs CBC & Chem 7: 10/31/21 13:52 11/02/21 15:29 Labs: Abnormal Lab Results - Last 24 Hours (Table) 11/02/21 11/02/21 11/03/21 Range/Units 11:18 20:35 06:59 POC Glucose (mg/dL) 219 H 204 H 70 L (75-99) mg/dL Microbiology - Last 24 Hours (Table) 10/31/21 13:25 Blood Culture - Preliminary Blood No Growth after 48 hours 10/31/21 13:51 Blood Culture - Preliminary Blood No Growth after 48 hours 11/01/21 11:45 Gram Stain - Preliminary Foot - Right Wound Culture - Preliminary Presumptive MRSA
[2021-11-03 16:30] LABS: Glucose,Whole Blood 121 mg/dL (75-99)
[2021-11-03] MEDS: METOPROLOL TARTRATE 12.5 MG TAB PO SCH (20:29)
[2021-11-03] MEDS: ATORVASTATIN 80 MG TAB PO SCH (20:29)
[2021-11-03] MEDS: PANTOPRAZOLE 40 MG TABLET PO SCH (20:30)
[2021-11-03] MEDS: metFORMIN 500 MG TAB PO SCH (20:30)
[2021-11-03] MEDS: GLIMEPIRIDE 2 MG TAB PO SCH (20:30)
[2021-11-03] MEDS: GABAPENTIN 400 MG CAP PO SCH (20:30)
[2021-11-03] MEDS: tiZANidine 4 MG TAB PO SCH (20:30)
[2021-11-03] MEDS: AMITRIPTYLINE HCL 50 MG TAB PO SCH (20:30)
[2021-11-03] MEDS: CLOPIDOGREL 75 MG TAB PO SCH (20:32)
[2021-11-03 20:58] LABS: Glucose,Whole Blood 92 mg/dL (75-99)
--- NOTE | 2021-11-03 23:16 | P.PN ---
Subjective Progress Note Date: 11/03/21 Principal diagnosis: Right diabetic foot infection Patient is a 66-year-old male with a past medical history significant for diabetes mellitus presented to the hospital with right heel wound after the patient did have a debridement of the callus by his sonography technician with evidence of secondary cellulitis. On today's evaluation that is 11/03/2021, patient remains to be afebrile, the patient denies pain to the right heel area because of his underlying diabetic neuropathy, the patient denies having any chest pain shortness of breath or cough no nausea no vomiting no abdominal pain no diarrhea Objective - Vital Signs Vital signs: Vital Signs Temp 98.3 F 11/03/21 07:25 Pulse 74 11/03/21 07:25 Resp 18 11/03/21 11:10 BP 115/76 11/03/21 07:25 Pulse Ox 95 11/03/21 07:25 Intake & Output 11/02/21 11/03/21 11/03/21 18:59 06:59 18:59 Intake Total 200 Balance 200 Weight 133.81 kg Intake: Oral 200 Other: # Voids 1 2 2 - Exam GENERAL DESCRIPTION: Middle-aged male lying in bed in no distress RESPIRATORY SYSTEM: Unlabored breathing , decreased breath sounds at bases HEART: S1 S2 regular rate and rhythm , ABDOMEN: Soft , no tenderness EXTREMITIES: Right heel wound is currently dressed no drainage on the dressing - Labs CBC & Chem 7: 10/31/21 13:52 11/02/21 15:29 Labs: Abnormal Lab Results - Last 24 Hours (Table) 11/02/21 11/02/21 11/03/21 Range/Units 11:18 20:35 06:59 POC Glucose (mg/dL) 219 H 204 H 70 L (75-99) mg/dL Microbiology - Last 24 Hours (Table) 11/01/21 11:45 Gram Stain - Preliminary Foot - Right Wound Culture - Preliminary Methicillin resist S. aureus Yeast species 10/31/21 13:25 Blood Culture - Preliminary Blood No Growth after 48 hours 10/31/21 13:51 Blood Culture - Preliminary Blood No Growth after 48 hours Assessment and Plan (1) Diabetic foot ulcer Current Visit: Yes Status: Acute Code(s): E11.621 - TYPE 2 DIABETES MELLITUS WITH FOOT ULCER; L97.509 - NON-PRESSURE CHRONIC ULCER OTH PRT UNSP FOOT W UNSP SEVERITY SNOMED Code(s): 241281064 Plan: 1patient with right heel diabetic foot infection likely with infected callus and secondary cellulitis likely from gram-positive skin shubham underlying gram- negative infection less likely but not entirely excluded. 2 vascular surgery recommended against debridement at this point 3patient local culture has been finalized with MRSA, patient is ALLERGIC to sulfa and MRSA is resistant to doxycycline in view of the extensive infection he would benefit from vancomycin pharmacy to dose 2 weeks for which PICC line will be placed discuss with the case management social worker as well as nurse practitioner for admitting team working on discharge Time with Patient: Less than 30
[2021-11-04] MEDS: VANCOMYCIN 2,000 MG in SODIUM CHLORIDE 0.9% 500 ML 500 ML IVPB SCH ×2 (00:03→14:16)
[2021-11-04 06:53] LABS: Glucose,Whole Blood 84 mg/dL (75-99)
[2021-11-04] MEDS: INSULIN ASPART (NovoLOG) 100 UNIT/ML VIAL SQ SCH ×3 (07:29→16:38)
[2021-11-04 07:50] VITALS: RESP 18
[2021-11-04 08:38] LABS: African American GFR (CKD) >90 (>60 ml/min/1.73 sqM); Non-African American GFR(CKD) 83 (>60 ml/min/1.73 sqM)
[2021-11-04] MEDS: LOSARTAN 25 MG TAB PO SCH (09:21)
--- NOTE | 2021-11-04 09:35 | P.DS ---
Providers Date of admission: 10/31/21 15:04 Expected date of discharge: 11/04/21 Attending physician: Donavan Carcamo Consults: 10/31/21 14:52 Consult Physician Urgent Consulting Provider: Monico Momin Consult Reason/Comments: Diabetic foot ulceration Do you want consulting provider notified?: Yes Consult Physician Urgent Consulting Provider: Anneliese Morris Consult Reason/Comments: Diabetic foot ulceration Do you want consulting provider notified?: Yes Primary care physician: Tai Godoy [facility] Hospital Course: HISTORY OF PRESENT ILLNESS 66-year-old morbidly obese one of Dr. Godoy patient with multiple medical problem is known to have history of CAD post [place] in the past, history of type 2 diabetes, history of hypertension hyperlipidemia and obstructive sleep apnea who had mild COPD as well with developed to have small ulcer on the heel area for over 3 weeks ago, was seen his primary care physician and start on antibiotic with Avelox initially and then request patient to come to the office for Rocephin injection which patient had 3 of them this last week. The area become much worse since then open and widely spreading with infection spreading to a few inches above the ankle area the area become more symptomatic with worsening cellulitis and open sore on the heel area. Patient had multiple problems in the past had seen at the wound clinic and had both side treated in the past. This time with failure to outpatient treatment patient was instructed to come to the hospital where was seen and evaluated culture was done at the time patient was started on vancomycin and Zosyn will be admitted to the hospital will be seen infectious disease and wound care. Pending of the culture patient also will be seen vascular to see if part of the problem is PAD. Addition to with one of the right side patient had small area on the left medial aspect of the lower part of the leg looks like small tiny ulcerated but had healed compared to before. 11/01: Ultrasound of the right lower extremity negative for DVT. Arterial ultrasound has been obtained and results are pending. Patient has been seen by vascular surgery with plan for I&D tomorrow. There is a consult in place for the wound healing Center. Dr. villagran is following patient continued on vancomycin and Zosyn. Patient has been afebrile, heart rate 80, blood pressure 134/83, pul se ox 94% on room air. Capillary blood glucose running between 119 and 219. A1c, sed rate and CRP ordered. Patient's is at bedside and all questions have been answered. 11/02: Yesterday, Dr. Momin did a bedside debridement on the right heel. Dr. Jack has evaluated this morning and no plan for full debridement in the aorta day. Patient has been seen by Dr. Morris with recommendations to continue vancomycin, pharmacy dosing and discontinued Zosyn. Arterial ultrasound was within normal limits. Patient is also been seen by wound center with recommendations for Santyl, saline moistened gauze, dry gauze and rolled gauze. Wound culture is in progress, blood culture no growth after 24 hours 2 specimens. Patient remains afebrile, heart rate 73, blood pressure 109/76, pulse ox 95% on room air. Patient had a blood sugar this morning of 60 with repeat of 149. Overall, blood sugars have been running between line 119 and 187. A1c 7.6. C-reactive protein 4.5, sed rate 91. Multiple attempts to been made to obtain IV access and Accucath will be ordered for the patient. 11/03: Patient is feeling well today. He denies any new complaints. No fever or chills. No pain in his right foot. Patient has been afebrile, heart rate 74, blood pressure 115/76, pulse ox 95% on room air. Capillary blood glucose this morning was 70 and last evening 204. Wound culture is positive for MRSA and yeast species. PICC line is ordered. marketing information manager is working on IV antibiotics for home as advised by Dr. Morris with plan for vancomycin. Anticipate discharge home tomorrow. 11/04: Patient is scheduled to have PICC insertion today. No new concerns from the patient nor the nurse. He remains afebrile, heart rate 79, blood pressure 102/68, pulse ox 94% on room air. Patient has been cleared for discharge by vascular surgery. We are currently waiting for PICC line and IV antibiotic arrangements. He is continued on vancomycin and will receive a dose this afternoon prior to discharge. Patient will be discharged in stable condition. DISCHARGE DIAGNOSES 1. Severe nonhealing diabetic ulcer on the right heel status post bedside debridement 11/01. 2 severe nonhealing with failure to outpatient treatment cellulitis and diabetic person: 3 type 2 diabetes 4 CAD post VA in the past 5 chronic pain syndrome 6 abnormal liver function test 7 hyperlipidemia 8 chronic diabetic neuropathy 9 hypertension 10 severe GERD 11 history of obstructive sleep apnea: Patient is not using any CPAP at this point. DISCHARGE PLAN Home Impression and plan of care have been directed as dictated by the signing physician. Tiffanie Moore nurse practitioner acting as scribe for signing physician. Patient Condition at Discharge: Good Plan - Discharge Summary Discharge Rx Participant: No New Discharge Prescriptions: New Metoprolol Tartrate [Lopressor] 12.5 mg PO HS #30 tab Collagenase [Santyl Ointment] 1 applic TOPICAL DAILY #30 gm Losartan [Cozaar] 12.5 mg PO DAILY #30 tab Vancomycin 2,000 mg IVPB Q16H each Continue Omeprazole [PriLOSEC] 20 mg PO HS Gabapentin [Neurontin] 1,200 mg PO HS Glimepiride [Amaryl] 2 mg PO HS tiZANidine [Zanaflex] 2 - 4 mg PO HS ALPRAZolam [Xanax] 1 mg PO DAILY PRN PRN Reason: Anxiety Atorvastatin [Lipitor] 80 mg PO HS #30 tab Nitroglycerin Sl Tabs [Nitrostat] 0.4 mg SUBLINGUAL Q5M PRN #25 tab PRN Reason: Chest Pain oxyCODONE HCL [oxyCODONE HCL (IR)] 20 mg PO TID PRN PRN Reason: Pain Clopidogrel [Plavix] 75 mg PO HS hydroCHLOROthiazide [Hydrodiuril] 50 mg PO DAILY metFORMIN HCL 500 mg PO HS Amitriptyline HCl [Elavil] 100 mg PO HS Discontinued Levofloxacin [Levaquin] 500 mg PO HS Discharge Medication List Omeprazole [PriLOSEC] 20 mg PO HS 12/06/13 [History] Gabapentin [Neurontin] 1,200 mg PO HS 06/29/16 [History] Glimepiride [Amaryl] 2 mg PO HS 06/26/17 [History] ALPRAZolam [Xanax] 1 mg PO DAILY PRN 08/26/18 [History] tiZANidine [Zanaflex] 2 - 4 mg PO HS 08/26/18 [History] Atorvastatin [Lipitor] 80 mg PO HS #30 tab 08/29/18 [Rx] Nitroglycerin Sl Tabs [Nitrostat] 0.4 mg SUBLINGUAL Q5M PRN #25 tab 08/29/18 [Rx] oxyCODONE HCL [oxyCODONE HCL (IR)] 20 mg PO TID PRN 09/02/18 [History] Clopidogrel [Plavix] 75 mg PO HS 11/18/18 [History] Amitriptyline HCl [Elavil] 100 mg PO HS 10/31/21 [History] hydroCHLOROthiazide [Hydrodiuril] 50 mg PO DAILY 10/31/21 [History] metFORMIN HCL 500 mg PO HS 10/31/21 [History] Collagenase [Santyl Ointment] 1 applic TOPICAL DAILY #30 gm 11/04/21 [Rx] Losartan [Cozaar] 12.5 mg PO DAILY #30 tab 11/04/21 [Rx] Metoprolol Tartrate [Lopressor] 12.5 mg PO HS #30 tab 11/04/21 [Rx] Vancomycin 2,000 mg IVPB Q16H each 11/04/21 [Rx] Follow up Appointment(s)/Referral(s): Monico Momin DO [STAFF PHYSICIAN] - 3 Weeks (Office closed fridays- Please call office Sunday for your follow up appointment. Thank you.) [facility] [NON-STAFF] - ([facility] will deliver the IV antibiotics and supplies on: .) [facility] [NON-STAFF] - ([facility] will call you to schedule your in home nursing visits for wound care and IV antibiotics/education. Your first visit will be on 11/05/21.) Tai Godoy DO [Primary Care Provider] - 11/07/21 9:45 am Anneliese Morris MD [STAFF PHYSICIAN] - 1 Week (Appointment needed for wound center. Wound center closed Sunday- Please call office Sunday for your appointment. [facility] Wound [facility] Office # [phone]. Thank you.) Activity/Diet/Wound Care/Special Instructions: Glucometer is at [facility] in the hospital - please have it delivered before discharge. Glucometer is 100% covered. Discharge Disposition: HOME WITH HOME HEALTH SERVICES
--- NOTE | 2021-11-04 10:15 | P.PN ---
Subjective Progress Note Date: 11/04/21 Today he was seen and examined lying in bed as a follow-up for a right diabetic foot ulcer. He is status post debridement. He's been afebrile. He states he does not like wearing the Mediboot and has taken it off. Plan is for discharge today after PICC line placement. He did like to follow-up with Dr. Morris for wound care management. Objective - Vital Signs Vital signs: Vital Signs Temp 97.8 F 11/04/21 07:49 Pulse 79 11/04/21 07:49 Resp 18 11/04/21 07:55 BP 116/77 11/04/21 08:56 Pulse Ox 94 L 11/04/21 07:49 Intake & Output 11/03/21 11/04/21 11/04/21 18:59 06:59 18:59 Intake Total 450 200 Balance 450 200 Intake: Oral 450 200 Other: # Voids 2 1 1 - Exam General appearance: The patient is alert, oriented, obese, appears in no acute distress. HET: Head is normocephalic and atraumatic. Pupils are equal and reactive. Neck: Supple without lymphadenopathy. Trachea midline. Abdomen: Soft, nontender, nondistended. Extremities: Normal skin color and turgor. Right foot with edema, no redness. Dressing clean, dry, and intact. Neurological: No focal deficits. Strength and sensation are grossly intact. - Labs CBC & Chem 7: 10/31/21 13:52 11/04/21 07:31 Labs: Abnormal Lab Results - Last 24 Hours (Table) 11/03/21 Range/Units 16:29 POC Glucose (mg/dL) 121 H (75-99) mg/dL Microbiology - Last 24 Hours (Table) 10/31/21 13:51 Blood Culture - Preliminary Blood No Growth after 72 hours 10/31/21 13:25 Blood Culture - Preliminary Blood No Growth after 72 hours 11/01/21 11:45 Gram Stain - Preliminary Foot - Right Wound Culture - Preliminary Methicillin resist S. aureus Yeast species Assessment and Plan Assessment: 1. Right diabetic foot ulcer status post debridement 2. Type 2 diabetes with peripheral neuropathy 3. Arterial duplex reviewed, right GAY 1.13, left 1.22, not consistent with peripheral arterial disease 4. Obesity 5. History of coronary artery disease with previous [place] 6. History of hypertension and hyperlipidemia Plan: 1. Antibiotics per recommendations from infectious disease 2. Bedside debridement done by Dr. Momin 3. Deep tissue culture 4. Offload weight on right heel 5. Wound care consulted, continue local wound care 6. No further debridement indicated at this time, follow up with outpatient wound center 7. Patient may have consistent carbohydrate diet 8. Physical therapy on consult Thank you for this consultation, he is cleared for discharge from vascular surgery. The impression and plan of care has been dictated as directed. Dr. Jack I performed a history and examination of this patient, discussed the same with the dictator. I agree with the dictator's note ,documented as a scribe. Any additional findings or plans will be noted.
[2021-11-04 11:27] LABS: Glucose,Whole Blood 99 mg/dL (75-99)
[2021-11-04] MEDS ORDERED: LIDOCAINE 1% INJ 10MG/ML (20 ML MDV) ONE (13:24)
[2021-11-04 14:39] VITALS: BP 103/66; PULSE 86; TEMP 98.1
--- NOTE | 2021-11-04 16:26 | P.PN ---
Subjective Progress Note Date: 11/04/21 Principal diagnosis: Right diabetic foot infection Patient is a 66-year-old male with a past medical history significant for diabetes mellitus presented to the hospital with right heel wound after the patient did have a debridement of the callus by his fitness attendant with evidence of secondary cellulitis. On today's evaluation that is 11/04/2021, patient continues to be afebrile, the patient denies pain to the right heel area, the patient denies having any chest pain shortness of breath or cough no nausea no vomiting no abdominal pain no diarrhea, patient is currently waiting for PICC line placement for outpatient IV antibiotics Objective - Vital Signs Vital signs: Vital Signs Temp 97.8 F 11/04/21 07:49 Pulse 79 11/04/21 07:49 Resp 18 11/04/21 08:30 BP 116/77 11/04/21 08:56 Pulse Ox 94 L 11/04/21 07:49 Intake & Output 11/03/21 11/04/21 11/04/21 18:59 06:59 18:59 Intake Total 450 200 Balance 450 200 Weight 133.81 kg Intake: Oral 450 200 Other: # Voids 2 1 1 - Exam GENERAL DESCRIPTION: Middle-aged male lying in bed in no distress RESPIRATORY SYSTEM: Unlabored breathing , decreased breath sounds at bases HEART: S1 S2 regular rate and rhythm , ABDOMEN: Soft , no tenderness EXTREMITIES: Right heel wound is currently dressed no drainage on the dressing - Labs CBC & Chem 7: 10/31/21 13:52 11/04/21 07:31 Labs: Abnormal Lab Results - Last 24 Hours (Table) 11/03/21 Range/Units 16:29 POC Glucose (mg/dL) 121 H (75-99) mg/dL Microbiology - Last 24 Hours (Table) 10/31/21 13:51 Blood Culture - Preliminary Blood No Growth after 72 hours 10/31/21 13:25 Blood Culture - Preliminary Blood No Growth after 72 hours 11/01/21 11:45 Gram Stain - Preliminary Foot - Right Wound Culture - Preliminary Methicillin resist S. aureus Yeast species Assessment and Plan (1) Diabetic foot ulcer Current Visit: Yes Status: Acute Code(s): E11.621 - TYPE 2 DIABETES MELLITUS WITH FOOT ULCER; L97.509 - NON-PRESSURE CHRONIC ULCER OTH PRT UNSP FOOT W UNSP SEVERITY SNOMED Code(s): 997995750 Plan: 1patient with right heel diabetic foot infection likely with infected callus and secondary cellulitis likely from gram-positive skin shubham underlying gram- negative infection less likely but not entirely excluded. 2 vascular surgery recommended against debridement at this point 3patient local culture has been finalized with MRSA, patient is ALLERGIC to sulfa and MRSA is resistant to doxycycline in view of the extensive infection, the patient would benefit from vancomycin pharmacy to dose 2 weeks for which PICC placement is pending outpatient bed has been arranged once PICC line is placed we will go home and will follow-up closely in the wound care center with me, all questions and concerns were answered Time with Patient: Less than 30
--- NOTE | 2021-11-07 07:50 | CDI ---
Documentation Clarification Form Date: 11/07/2021 07:35:00 AM From: Lakisha Olson Admit Date: 10/31/2021 03:04:00 PM Patient Name: Marvin Short Visit Number: [id number] Discharge Date: 11/04/2021 05:18:00 PM ATTENTION: The Clinical Documentation Specialists (CDI) and [facility] Coding Staff appreciate your assistance in clarifying documentation. Please respond to the clarification below the line at the bottom and electronically sign. The CDI & [facility] Coding staff will review the response and follow-up if needed. Please note: Queries are made part of the Legal Health Record. If you have any questions, please contact the author of this message via ITS. Dr. Carlos Alberto Gardner Conflicting documentation has been found in the medical record. Per H and P, DCS PN 11/01, 11/02, 11/03 patient has a severe nonhealing ulcer on the right heel status post debridement 11/01. Per your consult in History of present illness "Patient has a left stage III diabetic foot ulcer. Per your Assessment patient has Stage II pressure ulcer left heel. Assessment and plan is Stage III left heel. Clarification is needed as to patient stage of ulcer and whether left or right. Per H and P, DCS, PN's patient has DFU right heel Per your consult patient has pressure ulcer of left heel stage II and stage III History/Risk Factors: Clinical Indicators: MRSA foot ulcer Treatment: Bedside debridement and antibiotics, Santyl and saline moistened gauze, dry gauze change daily. Please clarify which diagnosis is most appropriate: [ ] Diabetic foot ulcer right foot [ ] Pressure ulcer left foot Stage II [ x ] Pressure ulcer left foot Stage III [ ] Other (please specify) [ ] Unable to determine MTDD
--- NOTE | 2021-11-07 10:07 | IR ---
PICC LINE PLACEMENT: HISTORY: Infection requiring long-term antibiotic therapy PROCEDURE: Ultrasound and fluoroscopic guidance of PICC line placement. COMPLICATIONS: None ANESTHESIA: 1. 1% Lidocaine locally. FINDINGS/TECHNIQUE: The procedure was explained to the patient. The risks, complications, benefits and alternatives were discussed and any questions were answered. Informed consent was obtained. The patient was placed supine on the fluoroscopic table and prepped and draped in the usual sterile fash ion. Utilizing a 21 gauge needle and sonographic and fluoroscopic guidance, access in the left basi lic vein was achieved and there is placement of a 0.018 guidewire. The vein is patent. A 4-F sheath was placed over the guidewire. The guidewire and dilator were removed and a 4-F. PICC line was plac ed through the sheath with the tip at the level of the SVC. The sheath was removed, the catheter was flushed and sutured into position. The patient was stable throughout the procedure and remained sta ble upon discharge from the Department of Radiology. The vein puncture was patent under ultrasound. A anna scale image was obtained to document patency of the vein punctured. All elements of the maximal barrier technique were utilized. FLUOROSCOPY TIME: 1.3 minutes of fluoroscopy and one image submitted IMPRESSION: Successful PICC line placement under ultrasound and fluoroscopic guidance.
== END 2021-11-04 17:18 | disposition home health service (06) | DRG 637 ==
LOC: EC 12:13 → 4SSUR 15:04
PROVIDERS: ADMIT Internal Medicine Geriatric Medicine; ATTEND Internal Medicine Geriatric Medicine
PROC: 0HDMXZZ Extraction of Right Foot Skin, External Approach (ICD-10-PCS; principal; 2021-11-01)
PROC: 05HF33Z Insertion of Infusion Device into Left Cephalic Vein, Percutaneous Approach (ICD-10-PCS; 2021-11-02 09:25)
DX: E11.621 Type 2 diabetes mellitus with foot ulcer (principal); L89.623 Pressure ulcer of left heel, stage 3; Z68.41 Body mass index [BMI] 40.0-44.9, adult; L03.115 Cellulitis of right lower limb; L97.419 Non-pressure chronic ulcer of right heel and midfoot with unspecified severity; L97.415 Non-pressure chronic ulcer of right heel and midfoot with muscle involvement without evidence of necrosis; L98.495 Non-pressure chronic ulcer of skin of other sites with muscle involvement without evidence of necrosis; E11.628 Type 2 diabetes mellitus with other skin complications; E11.42 Type 2 diabetes mellitus with diabetic polyneuropathy; E66.9 Obesity, unspecified; E78.5 Hyperlipidemia, unspecified; F32.A Depression, unspecified; F41.9 Anxiety disorder, unspecified; G40.909 Epilepsy, unspecified, not intractable, without status epilepticus; G89.4 Chronic pain syndrome; M50.30 Other cervical disc degeneration, unspecified cervical region; M96.1 Postlaminectomy syndrome, not elsewhere classified; I10 Essential (primary) hypertension; I25.10 Atherosclerotic heart disease of native coronary artery without angina pectoris; I25.2 Old myocardial infarction; I87.8 Other specified disorders of veins; J44.9 Chronic obstructive pulmonary disease, unspecified; K21.9 Gastro-esophageal reflux disease without esophagitis; K76.0 Fatty (change of) liver, not elsewhere classified; Z80.42 Family history of malignant neoplasm of prostate; Z82.49 Family history of ischemic heart disease and other diseases of the circulatory system; Z87.11 Personal history of peptic ulcer disease; Z87.442 Personal history of urinary calculi; Z87.891 Personal history of nicotine dependence; Z79.899 Other long term (current) drug therapy; Z79.84 Long term (current) use of oral hypoglycemic drugs; Z98.890 Other specified postprocedural states; Z98.1 Arthrodesis status; B95.62 Methicillin resistant Staphylococcus aureus infection as the cause of diseases classified elsewhere; Z82.0 Family history of epilepsy and other diseases of the nervous system; K44.9 Diaphragmatic hernia without obstruction or gangrene
CPT/HCPCS: 36410; 36415; 36573; 76937; 80053; 80202; 82565; 83036; 83605; 85025; 85652; 86140; 87040; 87070; 87075; 87077; 87186; 87205; 93923; 96365; 96366; 99285

== ENCOUNTER → 2022-05-01 | Outpatient (CLI) | payer MEDICARE ==
[2022-05-01 18:03] LABS: African American GFR (CKD) 78.3 (60.0-200.0); Anion Gap 8.7 mmol/L (10.00-18.00); BUN/Creat Ratio 12.63 Ratio (12.00-20.00); Blood Urea Nitrogen 14.4 mg/dL (9.0-27.0); Calcium 9.2 mg/dL (8.7-10.3); Carbon Dioxide 30.1 mmol/L (20.0-27.5); Non-African American GFR(CKD) 67.6 (60.0-200.0); Potassium 4.4 mmol/L (3.5-5.5)
== END | disposition home or self-care (01) ==
LOC: LABWHC1 10:43
PROVIDERS: ATTEND Internal Medicine Interventional Cardiology
DX: I10 Essential (primary) hypertension (principal); E11.9 Type 2 diabetes mellitus without complications
CPT/HCPCS: 36415; 80048

== ENCOUNTER 2022-11-02 08:01 | Day surgery (SDC) | payer MEDICARE ==
[2022-11-02 08:50] VITALS: RESP 16; TEMP 97.9
[2022-11-02 08:53] LABS: Glucose,Whole Blood 146 mg/dL (70-110)
[2022-11-02] MEDS ORDERED: diazePAM 5 MG TAB PO STA (08:53)
--- NOTE | 2022-11-02 12:16 | CT ---
EXAMINATION TYPE: CT lumbar spine w con DATE OF EXAM: 11/02/2022 COMPARISON: 07/03/2016 HISTORY: Intractable back pain. Myelogram CT DLP: 729 mGycm Automated exposure control for dose reduction was used. CT was performed following the intrathecal injection of 15 cc Omnipaque 300. Bone and soft tissue win teresa settings are submitted as well as coronal and sagittal reconstructions. L1-L2: Normal disc space height. No disc herniation protrusion or central stenosis. No facet joint arthropathy. No evidence for foraminal encroachment. L2-L3: Decompressive laminectomy with fusion and pedicular screws. The space appears to be well prese rved. No evidence for central stenosis or foraminal encroachment. No recurrent disease. L3-L4: Decompressive laminectomy with fusion redemonstrated. Pedicular screws are in place. Normal po stoperative alignment. Posterior disc bulge without evidence for central stenosis or disc herniation. Degenerative change facet joints with moderate bilateral foraminal encroachment. L4-L5: Decompressive laminectomy with fusion redemonstrated. Pedicular screws are in place. Normal po stoperative alignment. Posterior disc bulge without evidence for central stenosis or disc herniation. Degenerative change facet joints with moderate bilateral foraminal encroachment. L5-S1: Postoperative changes of fusion and decompressive laminectomy. Pedicular screws are in place. Grade 2 anterolisthesis L5 on S1 measuring 11 mm versus 10 mm previously. No evidence for recurrent d isease. No central stenosis or disc herniation. Intervertebral spacer is unchanged in position. Sever e bilateral neural foraminal encroachment. IMPRESSION: 1. Extensive postsurgical change of the decompressive laminectomy and fusion with pedicular screws. 2. Grade 2 anterolisthesis of L5 on S1 with mild interval progression. 3. No evidence for recurrent disease. There are degrees of foraminal encroachment.
--- NOTE | 2022-11-02 12:24 | CT ---
EXAMINATION TYPE: CT cervical spine w con DATE OF EXAM: 11/02/2022 COMPARISON: 07/03/2016 HISTORY: Neck pain Myelogram CT DLP: 937 mGycm Following the intrathecal injection of the contrast medium cervical CT myelography was performed. Bon e and soft tissue window settings are submitted. Coronal and sagittal reconstruction is obtained. C2-3: Mild degenerative disc space narrowing with minimal posterior disc bulge. No evidence for herni ation or protrusion. No central stenosis. Mild left foraminal encroachment. C3-4: Mild degenerative disc disease with posterior disc bulge mildly degree. Minimal effacement vent ral thecal sac. No evidence for central stenosis or disc herniation. Mild bilateral neural foraminal encroachment secondary to degenerative change of the cervical apophyseal joints. C4-5:Mild degenerative disc disease with posterior disc bulge mildly degree. Minimal effacement ventr al thecal sac. No evidence for central stenosis or disc herniation. Mild bilateral neural foraminal e ncroachment secondary to degenerative change of the cervical apophyseal joints. C5-6:Mild degenerative disc space narrowing with minimal posterior disc bulge. No evidence for hernia tion or protrusion. No central stenosis. Mild left foraminal encroachment. C6-7: Within normal limits C7-T 1: Within normal limits IMPRESSION: 1. Multilevel degenerative disc disease mild in degree with mild posterior disc bulge and varying deg mark of mild foraminal encroachment. No herniation or central stenosis.
--- NOTE | 2022-11-02 12:36 | FL ---
EXAMINATION TYPE: FL myelogram 2 or more regions DATE OF EXAM: 11/02/2022 10:19 AM HISTORY: Lower extremity pain and numbness Informed consent was obtained and all the patient's questions were answered. The L3-L4 level was loc alized under fluoroscopy. Standard sterile technique was utilized as well as appropriate local anest hesia 1% Lidocaine and sodium bicarbonate. Spinal needle was introduced into the thecal sac under fl uoroscopic guidance and isovue m 300 15 ml was injected. The patient tolerated the procedure well and left the department in stable condition. CT myelography is to follow. IMPRESSION: Successful myelography lumbar and cervical spine
[2022-11-02 15:01] VITALS: BP 96/56; PULSE 62
== END 2022-11-02 14:00 | disposition home or self-care (01) ==
LOC: RADPROMAIN 08:01
PROVIDERS: ATTEND Neurological Surgery
DX: M50.31 Other cervical disc degeneration, high cervical region (principal); M50.321 Other cervical disc degeneration at C4-C5 level; M50.322 Other cervical disc degeneration at C5-C6 level; M43.17 Spondylolisthesis, lumbosacral region; M48.02 Spinal stenosis, cervical region; M47.812 Spondylosis without myelopathy or radiculopathy, cervical region; Z98.1 Arthrodesis status
CPT/HCPCS: 62305; 72126; 72132; J2001; Q9967

== ENCOUNTER → 2023-07-06 | Outpatient (CLI) | payer MEDICARE ==
--- NOTE | 2023-07-07 07:25 | MR ---
MRI CERVICAL SPINE: CLINICAL HISTORY: Neck pain, numbness of hands and arms TECHNIQUE: Multiplanar, multisequence imaging of the cervical spine is performed without IV contrast. COMPARISON: CT cervical spine November 02, 2022 FINDINGS: Sagittal images of the cervical spine show the craniocervical junction to remain within nor mal limits. The cervical and upper thoracic spinal cord is normal in course, caliber, and signal. V ertebral alignment is stable and satisfactory. The vertebral body and intravertebral disk heights re main normal. The bone marrow signal intensity is within normal limits. Axial images show C2-C3 and C3-C4 levels to appear within normal limits. Axial images at C4-C5 level shows some right-sided uncovertebral facet degenerative change seen sosa r on CT. Spinal canal is preserved. Axial images at C5-C6 level show focal left paracentral disc protrusion effacing the anterolateral th ecal sac on axial image 27 and causing asymmetric mild left-sided neural foraminal narrowing. Right-s ided neural foramen is patent. Axial images at C6-C7 and C7-T1 levels remain within normal limits. IMPRESSION: Eccentric disc herniation C5-C6 level is noted and seen better on MRI versus recent CT my elogram.
== END | disposition home or self-care (01) ==
LOC: RADMRIMAIN 15:51
PROVIDERS: ATTEND Orthopaedic Surgery
DX: M54.2 Cervicalgia (principal); M47.12 Other spondylosis with myelopathy, cervical region
CPT/HCPCS: 72141

== ENCOUNTER 2023-07-20 08:06 | Day surgery (SDC) | payer MEDICARE ==
[2023-07-20] MEDS ORDERED: diazePAM 5 MG TAB PO STA (08:45)
[2023-07-20 09:14] VITALS: TEMP 98.2
[2023-07-20] MEDS ORDERED: HYDROcodone/APAP 5-325MG 1 EACH TAB PO PRN (10:15)
--- NOTE | 2023-07-20 12:22 | FL ---
EXAMINATION TYPE: FL myelogram 2 or more regions DATE OF EXAM: 07/20/2023 10:18 AM CLINICAL INDICATION:Male, 67 years old with history of M54.6,M54.50; COMPARISON: CT 11/02/2022. ATTENDING: Shan Weems D.O. FINDINGS: Informed consent was obtained including discussion of the risks and benefits. Timeout was taken per p rotocol. Real-time fluoroscopy was performed to localize the lumbar spine access site. The patient wa s prepped and draped. Under sterile technique with local anesthesia a 22-gauge spinal needle was intr oduced into the arachnoid space with return of clear CSF. A total of 10 cc of Isovue-300 M was inject ed with appropriate opacification of the thecal sac. Total fluoroscopy time was 30 seconds Total fluoroscopic images 0. Radiographs taken: 13 DAP: Not Reported by machine [id number] IMPRESSION: Successful lumbar puncture with injection for CT myelogram. CT pending.
--- NOTE | 2023-07-20 14:49 | CT ---
EXAMINATION TYPE: CT thor lumbar spine w con CT DLP: 3461.70 mGycm, Automated exposure control for dose reduction was used. DATE OF EXAM: 07/20/2023 10:35 AM COMPARISON: 11/02/2022.. CLINICAL INDICATION:Male, 67 years old with history of M54.6,M54.50; , post myelogram. TECHNIQUE: Multiple axial images were obtained from the midportion of T11 through the sacroiliac ninoska nts. Soft tissue and bone windows in coronal and sagittal planes were obtained and reviewed. 3-D ref ormats of the bones were created on a separate workstation and submitted for review. Contrast used:13ml mL of Isovue M300 with IV Contrast, none. Oral contrast used: none. FINDINGS: There is degeneration changes throughout the spine including the thorax and lumbar spine wi th osteophyte formation and facet joint arthropathy. Postsurgical changes at the level of L2-S1. Hard ragland appears intact. There is heavy calcified postsurgical change throughout the surgical bed extendi ng from L2 to L5. Discectomy at L5-S1. The visualized no foramen demonstrate moderate to severe bilat eral L5-S1 neural, moderate to severe bilateral L3-L4 and mild L2-L3 and L4-L5 bilaterally. Spinal ca nal is patent without including the thoracic and lumbar spine. No evidence of significant neural fora stella stenosis throughout the thoracic spine. T9-T10 disc bulge which mildly narrows the ventral suba rachnoid space and displaces the spinal cord or significant spinal canal or neural foraminal stenosis at this level. Evaluation of the upper thorax is slightly limited due to intrathecal contrast diluti on. There is no evidence of fracture. Degeneration changes of the bilateral sacroiliac joints with osteop hyte formation. Atherosclerosis of the arterial vasculature. Right renal cyst. Diaphragmatic herniati on with majority of the gastric lumen in the thorax. IMPRESSION: 1. Postsurgical changes with patent spinal canal. Neural foraminal stenosis worse at L3-L4 and L5-S1 . 2. Large hiatal hernia with majority of the gastric lumen into the thorax.
[2023-07-20 15:28] VITALS: BP 103/60; PULSE 68
[2023-07-20 15:29] VITALS: RESP 14
== END 2023-07-20 14:08 | disposition home or self-care (01) ==
LOC: RADPROMAIN 08:06
PROVIDERS: ATTEND Orthopaedic Surgery
DX: M48.061 Spinal stenosis, lumbar region without neurogenic claudication (principal)
CPT/HCPCS: 62305; 72129; 72132; Q9967

== ENCOUNTER → 2023-08-07 | Outpatient (CLI) | payer MEDICARE ==
--- NOTE | 2023-08-07 19:15 | MR ---
EXAMINATION TYPE: MR lumbar spine wo/w con DATE OF EXAM: 08/07/2023 6:59 PM CLINICAL INDICATION:Male, 67 years old with history of M54.50, Low back pain that radiates down both legs, bilateral leg weakness. COMPARISON: None TECHNIQUE: Multi planar, multi sequence imaging was performed utilizing: T1-weighted, T2-weighted, a nd turbo inversion recovery imaging of the lumbar spine. IV Contrast: 13.5 cc Gadavist. (None if empty) FINDINGS: Alignment: The lumbar vertebral bodies have preserved grade 1 anterolisthesis of L5 on S1. Cord: The conus medullaris and the distal spinal cord appear unremarkable with regards to their signa l intensity and morphology. Bones/Discs: Postsurgical changes from L2 to S1. Discectomy at L5-S1. Multilevel osteophyte formation and facet joint arthropathy. No abnormal bony edema on inversion recovery sequences given limitation of surgical hardware and susceptibility artifact. Multilevel disc desiccation is present. No abnormal postcontrast enhancement. Post contrast imaging somewhat limited due to susceptibility ar tifact. T12-L1: No evidence of significant spinal canal stenosis or neural foraminal stenosis. L1-L2: No evidence of significant spinal canal stenosis or neural foraminal stenosis. L2-L3: No evidence of significant spinal canal stenosis or neural foraminal stenosis. L3-L4: No evidence of significant spinal canal stenosis or neural foraminal stenosis. L4-L5: No evidence of significant spinal canal stenosis or neural foraminal stenosis. L5-S1: The disc is rounded posterior morphology without significant spinal canal stenosis. Facet join t arthropathy with mild bilateral neural foraminal stenosis. No significant spinal canal or neural foraminal stenosis in the remainder of the visualized levels. Other findings: None. IMPRESSION: Postsurgical changes with out evidence of significant spinal canal or neural foraminal stenosis. No a bnormal postcontrast enhancement.
== END | disposition home or self-care (01) ==
LOC: RADMRIMAIN 17:19
PROVIDERS: ATTEND Orthopaedic Surgery
DX: M54.50 Low back pain, unspecified (principal); Z98.890 Other specified postprocedural states
CPT/HCPCS: 72158; A9585

== ENCOUNTER 2023-10-24 07:44 | Day surgery (SDC) | payer MEDICARE ==
[2023-10-19 11:20] VITALS: BMI 43.0
--- NOTE | 2023-10-23 12:52 | P.HPOR ---
History of Present Illness H&P Date: 10/23/23 Subjective: This is a 67 year old male that presents today for initial evaluation regarding a several year history of progressively worsening right hand pain with associated numbness and tingling involving the entire hand. He has a previous history of a right carpal tunnel release and right cubital tunnel release performed by Dr. Padilla approximately 10 years ago. He states he had good relief from his symptoms for several years but they have now returned. He has noticed clawing and muscle atrophy that has worsened over the last several months. Physical Examination: RUE: AIN/PIN/Radial/Median motor intact. Radial/Median SILT. 2+/4 Radial/Ulnar pulses palpated. 5/5 APB, 0/5 FDI with clawing of ring and small finger digits. Negative Finkelsteins, negative CMC grind, positive Durkan's compression. Decreased sensation in ulnar nerve distribution. Ulnar nerve snapping anteriorly with elbow flexion. EMG/NCV: Moderate left carpal tunnel syndrome, mild right carpal tunnel syndrome. Severe chronic right cubital tunnel syndrome. (02/21/23) Impression: 1.) Right recurrent cubital tunnel syndrome 2.) Right recurrent carpal tunnel syndrome Plan: Diagnosis and treatment options were discussed with the patient. We discussed the complexity of his recurrent peripheral nerve compression. We discussed he has signs of severe chronic right cubital tunnel syndrome symptoms with diffuse atrophy. We discussed he has signs of progressively worsening ulnar nerve entrapment at the elbow with instability. We discussed continued observation versus revision cubital tunnel release with anterior transposition. We discussed he would likely not get complete relief due to the severe preoperative nerve findings and that the goal of surgery would be to halt any further progression of his symptoms. We discussed he would also likely benefit from a right revision open carpal tunnel release, he has no signs of atrophy in the median nerve distribution at this time. Risks and benefits of surgery including bleeding, infection, damage to surrounding tissue, need for further surgery, possible residual numbness were discussed and the patient wished to go forward with surgery. He is scheduled for a rate revision open cubital tunnel release with anterior transposition and a right revision open carpal tunnel release. The patient was agreeable with this plan. -Александр Prince DO Orthopedic Hand/Upper Extremity Surgeon Past Medical History Past Medical History: Coronary Artery Disease (CAD), Cancer, Chest Pain / Angina, Diabetes Mellitus, GERD/Reflux, GI Bleed, Hyperlipidemia, Hypertension, Liver Disease, Myocardial Infarction ([place]), Seizure Disorder, Sleep Apnea/CPAP/BIPAP, Vascular Disorder Additional Past Medical History / Comment(s): NIDDM type II, neuropathy bilateral arms/legs/feet, past gastric ulcer, GI bleed-years ago, hiatal hernia, seizure once following back surgery thought d/t medications, chronic back/cervical pain, post laminectomy syndrome, kidney stones, fatty liver, venous stasis, basal cell carcinoma to lt knee and Lt ear, had surgery for sleep apnea- does not use C-PAP. Last Myocardial Infarction Date:: 08/26/18 History of Any Multi-Drug Resistant Organisms: MRSA Date of last positivie culture/infection: 09/27/21 MDRO Source:: MRSA RT FOOT Past Surgical History: Back Surgery, Heart Catheterization, Heart Catheterization With Stent, Orthopedic Surgery Additional Past Surgical History / Comment(s): Back surgeries/laminectomies and fusions, R ulnar nerbe release, R carpal tunnel release, UVPPP, EGD, colonoscopy, right great toe amputation, basal cell carcinoma removed from lt ear and lt knee. Past Anesthesia/Blood Transfusion Reactions: Motion Sickness, Postoperative Nausea & Vomiting (PONV) Date of Last Stent Placement:: 08/26/17 Smoking Status: Former smoker - Past Family History Mother Family Medical History: Myocardial Infarction ([place]), Musculoskeletal Disorder Additional Family Medical History / Comment(s): Post polio syndrome Father Family Medical History: Cancer, Coronary Artery Disease (CAD) Additional Family Medical History / Comment(s): prostate. Sister(s) Family Medical History: No Reported History Son(s) Family Medical History: No Reported History Daughter(s) Family Medical History: No Reported History Medications and Allergies Home Medications Medication Instructions Recorded Confirmed Type Omeprazole [PriLOSEC] 20 mg PO QAM 12/06/13 10/22/23 History Gabapentin [Neurontin] 600 mg PO QID 06/29/16 10/22/23 History Glimepiride [Amaryl] 2 mg PO BID 06/26/17 10/22/23 History ALPRAZolam [Xanax] 1 mg PO QAM PRN 08/26/18 10/22/23 History tiZANidine [Zanaflex] 2 mg PO HS 08/26/18 10/22/23 History Atorvastatin [Lipitor] 80 mg PO HS #30 tab 08/29/18 10/22/23 Rx Nitroglycerin Sl Tabs [Nitrostat] 0.4 mg SUBLINGUAL Q5M PRN #25 tab 08/29/18 10/22/23 Rx oxyCODONE HCL [oxyCODONE HCL (IR)] 20 mg PO QID PRN 09/02/18 10/22/23 History Amitriptyline HCl [Elavil] 100 mg PO HS 10/31/21 10/22/23 History hydroCHLOROthiazide [Hydrodiuril] 50 mg PO QAM 10/31/21 10/22/23 History metFORMIN HCL 500 mg PO BID 10/31/21 10/22/23 History Aspirin [Adult Low Dose Aspirin EC] 81 mg PO QAM 10/19/22 10/22/23 History Losartan [Cozaar] 25 mg PO QAM 10/19/22 10/22/23 History Metoprolol Tartrate [Lopressor] 25 mg PO QAM 10/19/22 10/22/23 History Promethazine [Phenergan] 25 mg PO Q6HR PRN 10/19/22 10/22/23 History Allergies Allergy/AdvReac Type Severity Reaction Status Date / Time Sulfa (Sulfonamide Allergy Rash/Hives Verified 10/19/23 10:31 Antibiotics) morphine AdvReac Severe Confusion Verified 10/19/23 10:31 Physical Examination Osteopathic Statement: *. No significant issues noted on an osteopathic structural exam other than those noted in the History and Physical/Consult.
[~2023-10-24 07:44] MED LIST changes: -ALPRAZolam 0.25 MG TAB PO PRN; -ALPRAZolam 0.5 MG TAB PO PRN; -ASPIRIN 325 MG TAB PO STA; -ATORVASTATIN 80 MG TAB PO STA; +HYDROmorphone 0.5 MG/0.5 ML SYRINGE IVP PRN; +LACTATED RINGERS 1,000 ML IV SCH; +MIDAZOLAM 2 MG/2 ML VIAL IV PRN; -NITROGLYCERIN SL TABS 0.4 MG TAB SUBLINGUAL PRN; +Pre Op ABX Message 1 EACH MISC MISCELLANE ONE; -SODIUM CHLORIDE 0.9% 1,000 ML in EMPTY BAG 1 BAG IV ONE
[2023-10-24 08:17] LABS: Glucose,Whole Blood 140 mg/dL (70-110)
[2023-10-24] MEDS: LACTATED RINGERS 1,000 ML IV ONE (08:23)
[2023-10-24 08:26] VITALS: TEMP 97
[2023-10-24] MEDS: SCOPOLAMINE 1 MG/72 HR PATCH TRANSDERM ONE (08:29)
[2023-10-24] MEDS: ONDANSETRON 4 MG/2 ML VIAL IVP ONE (08:29)
[2023-10-24] MEDS: LIDOCAINE 1% (10MG/ML) FOR IV START INTRADERMA PRN (08:29)
[2023-10-24] MEDS: DEXAMETHASONE SOD PHOSPHATE 4 MG/ML 1 ML VIAL IV ONE (08:29)
[2023-10-24] MEDS ORDERED: LIDOCAINE 1% INJ 10MG/ML (20 ML MDV) ONE (08:43)
[2023-10-24] MEDS ORDERED: fentaNYL (PF) 50 MCG/ML 2 ML AMP ONE (08:43)
[2023-10-24] MEDS ORDERED: SUCCINYLCHOLINE CHLORIDE 200 MG/10 ML VIAL IV ONE (08:43)
[2023-10-24] MEDS ORDERED: PROPOFOL 10 MG/ML 20 ML VIAL IV ONE (08:43)
[2023-10-24] MEDS ORDERED: PHENYLEPHRINE 10 MG/ML VIAL ONE (08:43)
[2023-10-24] MEDS ORDERED: MIDAZOLAM 2 MG/2 ML VIAL ONE (08:43)
[2023-10-24] MEDS: BUPIVACAINE (PF) 0.5% 30 ML VIAL SQ ONE ×2 (08:45→10:02)
--- NOTE | 2023-10-24 10:26 | P.OP ---
Date of Procedure: 10/24/23 Preoperative Diagnosis: 1.) Right recurrent carpal tunnel syndrome 2.) Right recurrent cubital tunnel syndrome Postoperative Diagnosis: 1.) Right recurrent carpal tunnel syndrome 2.) Right recurrent cubital tunnel syndrome Procedure(s) Performed: 1.) Right revision open carpal tunnel release 2.) Right revision open cubital tunnel release with anterior subcutaneous transposition Anesthesia: GERBERA Surgeon: Александр Prince Estimated Blood Loss (ml): 5 Pathology: none sent Condition: stable Disposition: PACU Description of Procedure: This is a 68 year old male who presented today for a right revision open carpal tunnel release and a revision open cubital tunnel release with anterior transposition after having failed conservative treatment. Risks and benefits of surgery were discussed with the patient including bleeding, damage to surrounding tissue, infection, need for further surgery as well as risks of anesthesia including pulmonary embolism and even and the patient wished to proceed with surgical intervention. The patient was seen in the pre-operative area by myself. Consent and H&P were completed and updated. The correct extremity was marked in the pre-operative area by myself and all other questions were answered. Operative Narrative: The patient was brought to the operating room by the department of anesthesia. They remained on the portable stretcher and a rolling hand table was brought to the side of the operative extremity. Pre-operative time out was performed indicating the correct patient, procedure and laterality. All in the room agreed. Pre-operative antibiotics were given prior to skin incision. The patient was then drifted off to sleep by the department of anesthesia. A nonsterile tourniquet was then applied to the operative extremity and the right upper extremity was then prepped and draped in normal sterile fashion. The operative extremity was the exsanguinated with an esmarch bandage and the tourniquet was inflated to 250mmHg. 15 blade scalpel was utilized to make a longitudinal incision on the palmar skin in line with the radial boarder of the ring finger to a point distally at the intersection of Kaplans cardinal line in line with the patient previous scar. Heiss retractor was utilized to spread subcutaneous tissue and scalpel was used to cut through the superficial palmar fascia to reveal the transverse carpal ligament. The transverse carpal ligament was then sharply incised in line with the incision and tenotomy scissors were used to spread distally and the distal portion of the transverse carpal ligament was released using tenotomy scissors from distal to proximal under direct visualization. The median nerve was directly visualized and was intact. Proximal fascia of the distal forearm was also released under direct visualization taking care to preserve the palmar cutaneous branch of the median nerve. The wound was then closed with 4-0 nylon suture in a horizontal mattress fashion. Attention was brought to the medial elbow. 15 blade scalpel was used to incise skin in between the medial epicondyle and olecranon in a curvlinear and longitudinal fashion over the prior incision with extension both proximally and distally. Blunt dissection was taken down through subcutaneous tissue with tenotomy scissors and branches of the MABCN were identified and protected. Dissection was carried proximally and the ulnar nerve was identified and released in it's entirety to the the intermuscular septum. Dissection was then carried distally and almeida's ligament was released at the medial epicondyle, the nerve appeared compressed at this location. Dissection was then carried out further distal and the fascia of the two heads of the FCU were incised and the ulnar nerve was decompressed with [place] and tenotomy scissors and appeared to be tension free. The elbow was the flexed and extended and the ulnar nerve was unstable, consistent with pre-operative exam therefore decision was made to go forward with anterior subcutaneous transposition of the nerve. An adipofascial flap of tissue was dissected anterior to the medial epicondyle and raised to create a pocket. The nerve was then transposed anteriorly in a tension free manner after a slip of the medial intermuscular septum was excised to prevent proximal impingement. The adipofascial flap was then brought over the ulnar nerve in it's newly transposed position and the flap was secured to the flexor/pronator origin at the medial epicondyle in a tension free manner taking care to not over compress the nerve. 20cc's 0.5% Bupivacaine was injected into the subcutaneous tissues. Skin closure was performed with interrupted 3-0 Monocryl sutures followed by running 4-0 Monocryl sutures and a large bulky soft dressing was applied. Tourniquet was then let down and the hand had immediate perfusion. The patient was then woken by the department of anesthesia and transferred to PACU in stable condition. Александр Prince D.O. Orthopedic Hand/Upper Extremity Surgeon
[2023-10-24 11:12] LABS: Glucose,Whole Blood 145 mg/dL (70-110)
[2023-10-24 11:33] VITALS: RESP 20
[2023-10-24 12:10] VITALS: BP 111/73; PULSE 66
== END 2023-10-24 11:59 | disposition home or self-care (01) ==
LOC: OR 07:44
PROVIDERS: ATTEND Orthopaedic Surgery Hand Surgery
DX: G56.01 Carpal tunnel syndrome, right upper limb (principal); G56.21 Lesion of ulnar nerve, right upper limb; E78.5 Hyperlipidemia, unspecified; G40.909 Epilepsy, unspecified, not intractable, without status epilepticus; I10 Essential (primary) hypertension; I25.10 Atherosclerotic heart disease of native coronary artery without angina pectoris; I25.2 Old myocardial infarction; K21.9 Gastro-esophageal reflux disease without esophagitis; K76.0 Fatty (change of) liver, not elsewhere classified; E11.42 Type 2 diabetes mellitus with diabetic polyneuropathy; E11.51 Type 2 diabetes mellitus with diabetic peripheral angiopathy without gangrene; G47.33 Obstructive sleep apnea (adult) (pediatric); Z79.84 Long term (current) use of oral hypoglycemic drugs; Z85.828 Personal history of other malignant neoplasm of skin; Z87.891 Personal history of nicotine dependence; Z88.2 Allergy status to sulfonamides; Z88.5 Allergy status to narcotic agent; Z86.14 Personal history of Methicillin resistant Staphylococcus aureus infection; Z79.82 Long term (current) use of aspirin; Z95.5 Presence of coronary angioplasty implant and graft; Z79.899 Other long term (current) drug therapy; Z88.8 Allergy status to other drugs, medicaments and biological substances
CPT/HCPCS: 64718; 64721; J2250; J0330; J1100; J2405; J2001; J3010; J2704; J2371; J0665

== ENCOUNTER 2023-12-12 07:47 | Day surgery (SDC) | payer MEDICARE ==
--- NOTE | 2023-12-11 10:28 | P.HPOR ---
History of Present Illness H&P Date: 12/11/23 Subjective: This is a 68 year old male that presents today for a post-operative visit after undergoing right revision open carpal tunnel release and revision cubital tunnel release with anterior subcutaneous transposition on 10/24/23. They state they have improved numbness and mild pain in the palm and medial elbow and have been using the hand as tolerated. He wishes to schedule a left carpal tunnel release in the near future. Physical Examination: RUE: AIN/PIN/Radial/Ulnar/Median motor intact. Radial/Ulnar/Median SILT. 2+/4 Radial/Ulnar pulses palpated. Incision well healed with sutures intact. Able to make a full fist. LUE: AIN/PIN/Radial/Ulnar/Median motor intact. Radial/Ulnar/Median SILT. 2+/4 Radial/Ulnar pulses palpated. Positive Durkans compression Impression: 1.) S/P Right open revision carpal tunnel release and open cubital tunnel release with anterior transposition. 2.) Left carpal tunnel syndrome Plan: Diagnosis and treatment options were discussed with the patient. They are healing as expected and may continue to use the hand as tolerated. He is scheduled for a left endoscopic vs open carpal tunnel release for his left carpal tunnel syndrome. Risks and benefits of surgery including bleeding, infection, damage to surrounding tissue, need for further surgery, possible need to convert to open procedure, residual numbness were discussed and the patient wished to go forward with surgery. The patient is agreeable with this plan. CC: Dr. Walt Prince DO Orthopedic Hand/Upper Extremity Surgeon Past Medical History Past Medical History: Coronary Artery Disease (CAD), Diabetes Mellitus, GERD/Reflux, Hyperlipidemia, Hypertension, Liver Disease, Myocardial Infarction ([place]), Seizure Disorder, Vascular Disorder Additional Past Medical History / Comment(s): NIDDM type II, neuropathy bilateral arms/legs/feet, past gastric ulcer, hiatal hernia, seizure once following back surgery thought d/t medications, chronic back/cervical pain, post laminectomy syndrome, kidney stones, fatty liver, venous stasis, no new health hx. chgs. since here in September for right CTS per Last Myocardial Infarction Date:: 08/26/18 History of Any Multi-Drug Resistant Organisms: MRSA Date of last positivie culture/infection: >5 years ago MDRO Source:: MRSA FOOT Past Surgical History: Back Surgery, Heart Catheterization, Heart Catheterization With Stent, Orthopedic Surgery Additional Past Surgical History / Comment(s): Back surgeries/laminectomies and fusions, R ulnar nerve release, R carpal tunnel release, UVPPP, EGD, colonoscopy, right great toe amputation, right open CTS & cubital tunnel release in September Past Anesthesia/Blood Transfusion Reactions: Postoperative Nausea & Vomiting (PONV) Date of Last Stent Placement:: 08/26/17 Smoking Status: Former smoker - Past Family History Mother Family Medical History: Myocardial Infarction ([place]), Musculoskeletal Disorder Additional Family Medical History / Comment(s): Post polio syndrome Father Family Medical History: Cancer, Coronary Artery Disease (CAD) Additional Family Medical History / Comment(s): prostate. Sister(s) Family Medical History: No Reported History Son(s) Family Medical History: No Reported History Daughter(s) Family Medical History: No Reported History Medications and Allergies Home Medications Medication Instructions Recorded Confirmed Type Omeprazole [PriLOSEC] 20 mg PO QAM 12/06/13 12/11/23 History Gabapentin [Neurontin] 600 mg PO QID 06/29/16 12/11/23 History Glimepiride [Amaryl] 2 mg PO BID 06/26/17 12/11/23 History ALPRAZolam [Xanax] 1 mg PO QAM PRN 08/26/18 12/11/23 History tiZANidine [Zanaflex] 2 mg PO HS 08/26/18 12/11/23 History Atorvastatin [Lipitor] 80 mg PO HS #30 tab 08/29/18 12/11/23 Rx Nitroglycerin Sl Tabs [Nitrostat] 0.4 mg SUBLINGUAL Q5M PRN #25 tab 08/29/18 12/11/23 Rx oxyCODONE HCL [oxyCODONE HCL (IR)] 20 mg PO QID PRN 09/02/18 12/11/23 History Amitriptyline HCl [Elavil] 100 mg PO HS 10/31/21 12/11/23 History hydroCHLOROthiazide [Hydrodiuril] 50 mg PO QAM 10/31/21 12/11/23 History metFORMIN HCL 500 mg PO BID 10/31/21 12/11/23 History Aspirin [Adult Low Dose Aspirin EC] 81 mg PO QAM 10/19/22 12/11/23 History Losartan [Cozaar] 25 mg PO QAM 10/19/22 12/11/23 History Metoprolol Tartrate [Lopressor] 25 mg PO QAM 10/19/22 12/11/23 History Promethazine [Phenergan] 25 mg PO Q6HR PRN 10/19/22 12/11/23 History Allergies Allergy/AdvReac Type Severity Reaction Status Date / Time Sulfa (Sulfonamide Allergy Rash/Hives Verified 12/11/23 08:34 Antibiotics) morphine AdvReac Severe Confusion Verified 12/11/23 08:34 Physical Examination Osteopathic Statement: *. No significant issues noted on an osteopathic structural exam other than those noted in the History and Physical/Consult.
[~2023-12-12 07:47] MED LIST changes: +DEXAMETHASONE SOD PHOSPHATE 4 MG/ML 1 ML VIAL IV ONE; -HYDROmorphone 0.5 MG/0.5 ML SYRINGE IVP PRN; -LACTATED RINGERS 1,000 ML IV SCH; +LIDOCAINE 1% (10MG/ML) FOR IV START INTRADERMA PRN; +MORPHINE SULFATE 4 MG/ML SYRINGE IV PRN; -Pre Op ABX Message 1 EACH MISC MISCELLANE ONE; +ceFAZolin 3 GM in SODIUM CHLORIDE 0.9% 100 ML IVPB PRN
[2023-12-12] MEDS: LACTATED RINGERS 1,000 ML IV SCH (08:18)
[2023-12-12] MEDS ORDERED: ONDANSETRON 4 MG/2 ML VIAL ONE (08:37)
[2023-12-12] MEDS: ONDANSETRON 4 MG/2 ML VIAL IVP ONE (08:38)
[2023-12-12 08:41] LABS: Glucose,Whole Blood 166 mg/dL (70-110)
[2023-12-12] MEDS: BUPIVACAINE (PF) 0.5% 30 ML VIAL SQ ONE ×2 (08:55→09:01)
[2023-12-12] MEDS: LIDOCAINE 2% INJ 20 MG/ML SQ ONE ×2 (08:56→09:01)
[2023-12-12 08:57] VITALS: TEMP 97.7
[2023-12-12] MEDS ORDERED: fentaNYL (PF) 50 MCG/ML 2 ML AMP ONE (08:58)
[2023-12-12] MEDS ORDERED: MIDAZOLAM 2 MG/2 ML VIAL ONE (08:58)
[2023-12-12] MEDS ORDERED: PROPOFOL 10 MG/ML 20 ML VIAL IV ONE (08:58)
--- NOTE | 2023-12-12 09:18 | P.OP ---
Date of Procedure: 12/12/23 Preoperative Diagnosis: Left carpal tunnel syndrome Postoperative Diagnosis: Left carpal tunnel syndrome Procedure(s) Performed: Left endoscopic carpal tunnel release Anesthesia: MAC Surgeon: Александр Prince Voip Technician #1: Daryl Horton Estimated Blood Loss (ml): 0 Pathology: none sent Description of Procedure: This is a 68 year old male who presents today for a left endoscopic carpal tunnel release after having failed conservative treatment in the past. Risks and benefits of surgery were discussed with the patient including bleeding, damage to surrounding tissue, infection, need to convert to open procedure, need for further surgery as well as risks of anesthesia including pulmonary embolism and even and the patient wished to proceed with surgical intervention. The patients was seen in the pre-operative area by myself. Consent and H&P were completed and updated. The correct extremity was marked in the pre-operative area by myself and all other questions were answered. Operative Narrative: The patient was brought to the operating room by the department of oralia garza. They remained on the portable stretcher and a rolling hand table was brought to the side of the operative extremity. Pre-operative time out was performed indicating the correct patient, procedure and laterality. All in the room agreed. The patient was then drifted off to sleep by the department of anesthesia. MAC anesthesia was utilized and a 50:50 mixture of 1% Lidocaine and 0.5% bupivacaine was injected into the subcutaneous tissues of the palmar skin, 8ccs total. A nonsterile tourniquet was then applied to the operative extremity and the left upper extremity was then prepped and draped in normal sterile fashion. The operative extremity was the exsanguinated with an esmarch bandage and the tourniquet was inflated to 250mmHg. 15 blade scalpel was utilized to make a transverse incision on the palmar skin just ulnar to the palmaris longus tendon at the level of the distal wrist crease. Ragnell retractor was then placed radially and blunt dissection was performed to reveal the distal forearm fascia. This was lifted with fine Oscar pick ups and Littler tenotomy scissors were then used to open the forearm fascia transversely and a double skin hook was then placed. Hamate finder was placed into the carpal tunnel and then sequential sized dilators were inserted followed by the synovial elevator to separate the flexor tenosynovium from the undersurface of the transverse carpal ligament and a washboard texture was felt. The Micro[employer] endoscopic carpal tunnel release system gun was the then inserted into the carpal tunnel hugging the deep portion of the transverse carpal ligament in line with the base of the ring finger. Transverse fibers of the ligament were directly visualized. Pressure was applied on the palm to reveal the distal extent of the transverse carpal ligament. The blade was then deployed and the distal half of the transverse carpal ligament was released. The scope was then brought distal again and remaining transverse fibers were incised with the blade. The proximal half of the transverse carpal ligament was then divided and again the scope was advanced distal and remaining transverse fibers were incised with the blade. The radial and ulnar leaflets were directly visualized and mobile consistent with complete release. Tenotomy scissors were then utilized to release the remaining distal forearm fascia under direct visualization taking care to preserve the palmar cutaneous branch of the median nerve. Skin closure was performed with interrupted 4-0 Monocryl suture followed by steri strips. Sterile dressing was applied consisting 4x4s, Webril, and an hafsa bandage. Tourniquet was let down and the hand immediately was well perfused. The patient was then woken by the department of anesthesia and transferred to PACU in stable condition. Daryl JOHNSON was present for the case in its entirety and assisted in major portions of the case and protection of vital neurovascular structures. Александр Prince D.O. Orthopedic Hand/Upper Extremity Surgeon
[2023-12-12 09:55] VITALS: BP 103/68; PULSE 62; RESP 16
== END 2023-12-12 09:50 | disposition home or self-care (01) ==
LOC: OR 07:47
PROVIDERS: ATTEND Orthopaedic Surgery Hand Surgery
DX: G56.02 Carpal tunnel syndrome, left upper limb (principal); I10 Essential (primary) hypertension; E78.5 Hyperlipidemia, unspecified; E11.9 Type 2 diabetes mellitus without complications; I25.10 Atherosclerotic heart disease of native coronary artery without angina pectoris; K21.9 Gastro-esophageal reflux disease without esophagitis; I25.2 Old myocardial infarction; Z87.442 Personal history of urinary calculi; Z87.891 Personal history of nicotine dependence; Z82.49 Family history of ischemic heart disease and other diseases of the circulatory system; Z79.84 Long term (current) use of oral hypoglycemic drugs; Z79.82 Long term (current) use of aspirin; Z79.899 Other long term (current) drug therapy; Z88.2 Allergy status to sulfonamides; Z88.5 Allergy status to narcotic agent
CPT/HCPCS: 84132; 29848; J2001; J2250; J2405; J3010; J2704; J0665